=== PATIENT | female | born 1940 | race Caucasian/White ===

== ENCOUNTER → 2016-10-30 | Outpatient (CLI) | payer OTHER ==
[~2016-10-30] MED LIST: ASPCH81 PO; LISI5TAB3 PO; MULT-506 PO
--- NOTE | 2016-10-30 16:37 | MAMMOGRAPHY REPORT ---
BILATERAL DIGITAL SCREENING MAMMOGRAM WITH CAD: 10/30/2016 CLINICAL HISTORY: Routine screening. Patient has no complaints. TECHNIQUE: Current study was also evaluated with a Computer Aided Detection (CAD) system. Bilateral CC and MLO views were obtained. COMPARISON: Comparison is made to exams dated: 10/18/2015 mammogram, 10/16/2014 mammogram, 10/10/2013 cammy mogram, 10/05/2012 mammogram, 10/01/2011 mammogram, and 09/26/2010 mammogram - [facility]. BREAST COMPOSITION: There are scattered areas of fibroglandular density in both breasts. FINDINGS: No suspicious masses, calcifications, or areas of architectural distortion are noted in ei ther breast. There has been no significant interval change compared to prior exams. IMPRESSION: ACR BI-RADS CATEGORY 1: NEGATIVE There is no mammographic evidence of malignancy. A 1 year screening mammogram is recommended. The pa tient will receive written notification of the results. Approximately 10% of breast cancers are not detected with mammography. A negative mammographic report should not delay biopsy if a clinically suggestive mass is present. Martha Chua M.D. /:10/30/2016 16:04:49 Clerk Manager: Sun OREILLY(Dorcas)(Lenin)([place]), [facility] letter sent: Normal 1/2 BI-RADS Code: ACR BI-RADS Category 1: Negative
== END | disposition home or self-care (01) ==
LOC: C.MAMM 15:24
PROVIDERS: ATTEND Internal Medicine
DX: Z12.31 Encounter for screening mammogram for malignant neoplasm of breast (principal)

== ENCOUNTER 2023-10-26 21:15 | Inpatient (IN) ==
--- NOTE | 2023-10-26 21:39 | Emergency Department Note ---
Impression & Plan Acute right flank pain, RAJESH (acute kidney injury), Hydronephrosis, Ureteral stone, Elevated liver enzymes, Acute UTI ED Provider Note NAME: LAN BRIDGES AGE: 83 SEX: F : 1940 ARRIVES VIA: Walk-In INFORMANT: [Patient] ED PROVIDER(S): [Surinder Mann MD] CHIEF COMPLAINT: Back, flank pain HISTORY OF PRESENT ILLNESS: The patient is an 83-year-old female whose had 3 weeks of symptoms that seem to be worsening almost every day. She has noticed some dark urine, she has seen some blood in her urine. She has had some right flank pain at times. She has had some epigastric abdominal pain. Patient has had a decreased appetite but no nausea, no fever. She has had some hot and cold flashes. The patient has had a kidney stone before but it was on the left. The patient spoke with a on-call provider this evening and was referred to the ER. PMHx/PSHx/Social Hx: See Below PHYSICAL EXAM: GENERAL: Patient is in no acute distress. HEENT: No acute trauma, normocephalic atraumatic, mucous membranes moist, no nasal congestion. NECK: No stridor, no adenopathy, no meningismus, trachea is midline. LUNGS: Clear to auscultation bilaterally, no wheeze, no rhonchi, breath sounds equal. HEART: Without murmurs gallops or rubs, regular rate and rhythm. ABDOMEN: Soft, nontender, no peritonitis. EXTREMITIES: No cyanosis, full range of motion of all the joints without pain or difficulty. NEUROLOGIC: Oriented x 3, no acute motor or sensory deficits, no focal weakness. SKIN: No jaundice, no diaphoresis. Back: No flank discomfort to percussion. DIFFERENTIAL DIAGNOSIS: Pyelonephritis, renal colic, biliary colic, pancreatitis, UTI, musculoskeletal pain, among others. EMERGENCY DEPARTMENT PROCEDURES: MEDICAL DECISION MAKING: There is no leukocytosis or concerning anemia. Platelet count slightly low at 121. Sodium was low, there was some acute kidney injury with a creatinine of 2.43. Liver enzymes were elevated. ECG showed a sinus rhythm, no obvious acute ischemia. Cardiac enzyme testing x 1 was slightly elevated. This troponin elevation could be secondary to mismatch or potentially cardiac injury. Lipase slightly elevated at 84-this value is not high enough to diagnose pancreatitis. Urinalysis does show findings of infection. Anaplasmosis and Babesia smears were negative. Lyme disease testing was negative. Chest x-ray did not show pneumonia or free air. Abdominal and pelvis CT shows right-sided hydronephrosis secondary to a proximal right ureteral stone. The patient received IV saline, 1 L. She was given IV ceftriaxone and IV Tylenol. I did speak with urology. The patient does not need emergently stented but will likely have a ureteral stent placed tomorrow. She is to be n.p.o. after midnight. Hydration and antibiotic therapy was recommended overnight. I did speak with the patient about her findings, I spoke with case management. The on-call hospitalist has been consulted. In short, patient appears to be quite dehydrated. She has a UTI with a right sided ureteral stone. There is hydronephrosis. She will require a hospital stay, further workup, urologic intervention. The cause for the elevated liver enzymes and mildly elevated troponin is currently unclear. Prior/Outside records/notes reviewed: None ECG per my interpretation: Indication was abdominal pain. The ECG shows a normal sinus rhythm with a rate of 92. There is no ST elevation, no PVCs. The QTc is 430. Continuous Cardiac Monitoring per my interpretation: An order was placed for continuous cardiac monitoring. The monitor shows a rate of 95 with normal sinus rhythm. Imaging/x-ray results per my interpretation: Chest x-ray shows a hiatal hernia and some atelectasis, there is no free air, pneumonia or pneumothorax. Chronic Medical/Social conditions affecting care: Advanced age. Care/Management discussed with: Urology-Dr. Perkins. Case management and the on-call hospitalist. Level of care consideration(s): After review of the information above and other included data: --I believe the patient requires escalation of care to admission DISPOSITION: Admission Past Med/Surg History Problem List (Updated 10/26/23 @ 23:39 by Surinedr Mann MD) Acute UTI (Acute) Elevated liver enzymes (Acute) Ureteral stone (Acute) Hydronephrosis (Acute) RAJESH (acute kidney injury) (Acute) Acute right flank pain (Acute) Medical History History of kidney stones Social History Smoking Status: Never smoker Preferred Language: Telugu Feels Safe at Home: Yes Allergies Allergies Allergy/AdvReac Type Severity Reaction Status Date / Time No Known Allergies Allergy Unverified 10/26/23 21:46 Home Meds Home Medications Medication Instructions Recorded Confirmed aspirin 81 mg tablet,delayed 81 mg PO DAILY 10/26/23 10/26/23 release atorvastatin 40 mg tablet 40 mg PO DAILY 10/26/23 10/26/23 losartan 25 mg tablet 25 mg PO DAILY 10/26/23 10/26/23 multivitamin 1 tab PO DAILY 10/26/23 10/26/23 Results & Data (ED) Vital Signs Vital Signs - 24 hr 10/26/23 21:19 10/26/23 21:37 10/26/23 23:00 Temperature 36.5 C Temperature Source Temporal Artery Scan Pulse Rate 102 H Pulse Rate [Finger] 95 H 85 Respiratory Rate 16 17 16 Blood Pressure 153/89 H Blood Pressure [Right Radial Artery] 127/75 154/97 H Blood Pressure Mean 110 Blood Pressure Mean [Right Radial Artery] 92 116 Blood Pressure Position Sitting Pulse Oximetry 96 93 94 Oxygen Delivery Method Room Air Room Air Sepsis Recent Fever Within 48 Hours Yes Sepsis New/Unexplained Change in Mental Status No Sepsis Action Taken by Nursing No Action Required Home Medications Current Medication List: was personally reviewed by me Laboratory Data Attestation: I reviewed the patient's lab results. 10/26/23 21:45 10/26/23 21:45 Lab Results 10/26/23 10/26/23 Range/Units 21:45 21:52 WBC 10.39 (4.8-10.8) K/ul RBC 4.11 L (4.20-5.40) M/uL Hgb 12.8 (12.0-16.0) g/dl Hct 36.5 L (37.0-47.0) % MCV 88.8 (80.0-100.0) fL MCH 31.1 (25.0-34.0) pg MCHC 35.1 (32.0-36.0) g/dL RDW Std Deviation 43.1 (36.4-46.3) fL RDW Coeff of Berta 13.2 (11.5-14.5) % Plt Count 121 L (130-400) K/uL MPV 12.2 (9.4-12.4) fL Immature Gran % (Auto) 0.4 % Neut % (Auto) 89.3 % Lymph % (Auto) 3.9 % Elmore % (Auto) 5.6 % Eos % (Auto) 0.5 % Baso % (Auto) 0.3 % Neut # (Auto) 9.28 H (1.40-6.50) K/uL Lymph # (Auto) 0.41 L (1.20-3.40) K/uL Elmore # (Auto) 0.58 (0.11-0.59) K/uL Eos # (Auto) 0.05 (0.00-0.50) K/uL Baso # (Auto) 0.03 (0.00-0.20) K/uL Immature Gran # (Auto) 0.04 (0.01-0.20) K/uL Sodium 130 L (136-145) mmol/L Potassium 3.7 (3.5-5.1) mmol/L Chloride 97 L (98-107) mmol/L Carbon Dioxide 22 (21-32) mmol/L Anion Gap 11 (3-11) BUN 57 H (6-23) mg/dl Creatinine 2.43 H (0.6-1.2) mg/dl Est Cr Clr Drug Dosing 15.6 ml/min Est GFR ( Amer) 20.5 ml/min Est GFR (Non-Af Amer) 17.7 ml/min BUN/Creatinine Ratio 23.5 H (10-20) Glucose 136 H (70-99(Fasting)) mg/dl Calcium 8.8 (8.6-10.3) mg/dl Total Bilirubin 1.3 H (0.2-1.0) mg/dl AST 159 H (13-39) U/L ALT 92 H (7-52) U/L Alkaline Phosphatase 246 H (34-104) U/L Troponin I High Sens 30.5 H (0-14) pg/ml Total Protein 7.0 (6.0-8.3) gm/dl Albumin 3.4 (3.4-5.0) gm/dl Globulin 3.6 (2.5-4.0) gm/dl Albumin/Globulin Ratio 0.9 (0.9-2) Lipase 84 H (11-82) U/L Urine Color Yellow Urine Appearance Turbid A (Clear) Urine pH 5.5 (4.5-7.5) Ur Specific Benkelman 1.009 (1.000-1.030) Urine Protein 2+ H (Negative) Urine Glucose (UA) Negative (Negative) Urine Ketones Negative (Negative) Urine Blood 2+ H (Negative) Urine Nitrite Negative (Negative) Urine Bilirubin Negative (Negative) Urine Urobilinogen Negative (Negative) Ur Leukocyte Esterase 3+ H (Negative) Urine WBC (Auto) >50 H (0-5) /hpf Urine RBC (Auto) 0-2 (0-2) /hpf U Hyaline Cast (Auto) 3-5 H (0-2) /lpf U Epithel Cells (Auto) 0-2 (0-2) /hpf Urine Bacteria (Auto) 2+ H (None Seen) Anaplasma Smear See Comment Babesia Smear See Comment Lyme Disease Screen Negative (Negative) Administered Medications Discontinued Medications Sodium Chloride (Nss) 500 mls @ 999 mls/hr IV .Q31M STA Stop: 10/26/23 22:00 Last Infusion: 10/26/23 22:50 Dose: Infused Documented By: Admin: 10/26/23 22:14 Dose: 999 mls/hr Documented By: JANIA Ceftriaxone Sodium (Rocephin) 2,000 mg in 50 mls @ 100 mls/hr IV NOW STA Stop: 10/26/23 22:56 Last Infusion: 10/26/23 23:29 Dose: Infused Documented By: Admin: 10/26/23 22:52 Dose: 100 mls/hr Documented By: JANIA Sodium Chloride (Nss) 500 mls @ 999 mls/hr IV .Q31M ONE Stop: 10/26/23 23:09 Last Admin: 10/26/23 22:53 Dose: 999 mls/hr Documented By: JANIA Acetaminophen (Ofirmev) 1,000 mg in 100 mls @ 400 mls/hr IV NOW STA Stop: 10/26/23 23:12 Last Admin: 10/26/23 23:28 Dose: 400 mls/hr Documented By: JANIA Imaging Data Radiologist's Impression: Abdomen/Pelvis CT 10/26/23 21:30 Exam(s): CT ABDOMEN + PELVIS Without Contrast EXAM: CT Abdomen and Pelvis Without Intravenous Contrast CLINICAL HISTORY: Reason for exam: flank pain. TECHNIQUE: Axial computed tomography images of the abdomen and pelvis without intravenous contrast. CTDI is 17.53 mGy and DLP is 767.65 mGy-cm. Automated exposure control was utilized for the study. A dose lowering technique was utilized adhering to the principles of ALARA. COMPARISON: No relevant prior studies available. FINDINGS: Lung bases: Unremarkable. No mass. No consolidation. Mediastinum: Small esophageal hiatal hernia. ABDOMEN: Liver: Unremarkable. Gallbladder and bile ducts: Unremarkable. No calcified stones. No ductal dilation. Pancreas: Unremarkable. No ductal dilation. Spleen: Unremarkable. No splenomegaly. Adrenals: Mild bilateral adrenal gland thickening. Kidneys and ureters: Mild right hydronephrosis this is likely secondary to a 0.8 cm calculus within the right renal pelvis. Mild periureteral inflammatory change also noted. Nonobstructing left upper and lower pole intrarenal calculi. Nonobstructing right lower pole intrarenal calculus. Stomach and bowel: Diverticulosis without evidence of diverticulitis. No obstruction. PELVIS: Appendix: No findings to suggest acute appendicitis. Bladder: Unremarkable. No stones. Reproductive: Unremarkable as visualized. ABDOMEN and PELVIS: Intraperitoneal space: Unremarkable. No free air. No significant fluid collection. Bones/joints: Multilevel degenerative changes of the lumbar spine with slight anterolisthesis of L4 on L5. No acute fracture. No dislocation. Soft tissues: Unremarkable. Vasculature: Unremarkable. No abdominal aortic aneurysm. Lymph nodes: Unremarkable. No enlarged lymph nodes. IMPRESSION: 1. Right-sided hydronephrosis secondary to a 0.8 cm calculus within the right renal pelvis. 2. Left-sided nephrolithiasis 3. Diverticulosis without evidence of diverticulitis Electronically signed by: Miguel Cox MD 10/26/23 23:05 PM Discharge Plan Visit Data Chief Complaint: Back Injury/Pain Stated Complaint: BACK PAIN, ABD PAIN, HEADACHE, KIDNEY PROBLEMS ED Provider: Surinder Mann Discharge Problem: Acute right flank pain, RAJESH (acute kidney injury), Hydronephrosis, Ureteral stone, Elevated liver enzymes, Acute UTI Patient Disposition: Admitted As Inpatient Condition: Fair Forms Stand Alone Forms: [facility] Prescriptions Prescriptions: No Action atorvastatin 40 mg tablet 40 mg PO DAILY losartan 25 mg tablet 25 mg PO DAILY aspirin [Aspirin Low-Strength] 81 mg Tablet,Delayed Release (Dr/Ec) 81 mg PO DAILY multivitamin [Multiple Vitamin] Tablet 1 tab PO DAILY Referrals Referrals: Paz Casarez MD [Primary Care Provider] - Discharge Problem: Hydronephrosis Qualifiers: Hydronephrosis type: unspecified Qualified Code(s): N13.30 - Unspecified hydronephrosis
[2023-10-26 22:07] LABS: Basophils # (auto) 0.03 K/uL (0.00-0.20); Basophils % (auto) 0.3 %; Eosinophils # (auto) 0.05 K/uL (0.00-0.50); Eosinophils % (auto) 0.5 %; Hematocrit (blood only) 36.5 % (37.0-47.0); Hemoglobin 12.8 g/dl (12.0-16.0); Immature Granulocytes # (auto) 0.04 K/uL (0.01-0.20); Immature Granulocytes % (auto) 0.4 %; Lymphocytes # (auto) 0.41 K/uL (1.20-3.40); Lymphocytes % (auto) 3.9 %; Mean Corpuscular Hemoglobin 31.1 pg (25.0-34.0); Mean Corpuscular Hgb Conc 35.1 g/dL (32.0-36.0); Mean Corpuscular Volume 88.8 fL (80.0-100.0); Mean Platelet Volume 12.2 fL (9.4-12.4); Monocytes # (auto) 0.58 K/uL (0.11-0.59); Monocytes % (auto) 5.6 %; Neutrophils # (auto) 9.28 K/uL (1.40-6.50); Neutrophils % (auto) 89.3 %; Platelet Count 121 K/uL (130-400); RDW Coefficient of Variation 13.2 % (11.5-14.5); RDW Standard Deviation 43.1 fL (36.4-46.3); Red Blood Count 4.11 M/uL (4.20-5.40); White Blood Count 10.39 K/ul (4.8-10.8)
[2023-10-26] MEDS: SODIUM CHLORIDE 0.9% 500 ML IV STA (22:14)
[2023-10-26 22:21] LABS: Appearance Urine Turbid (Clear); Bacteria Urine Automated 2+ (None Seen); Bilirubin Urine Negative (Negative); Blood Urine 2+ (Negative); Color Urine Yellow; Epithelial Cell Urine Auto 0-2 /hpf (0-2); Glucose Urine UA Negative (Negative); Ketones Urine Negative (Negative); Leukocyte Esterase Urine 3+ (Negative); Nitrite Urine Negative (Negative); Protein Urine 2+ (Negative); RBC Urine Automated 0-2 /hpf (0-2); Specific Gravity Urine 1.009 (1.000-1.030); Urobilinogen Urine Negative (Negative); WBC Urine Automated >50 /hpf (0-5); pH Urine 5.5 (4.5-7.5)
[2023-10-26 22:23] LABS: Albumin Globulin Ratio 0.9 (0.9-2); Albumin Level 3.4 gm/dl (3.4-5.0); BUN Creatinine Ratio 23.5 (10-20); Bilirubin,Total 1.3 mg/dl (0.2-1.0); Calcium 8.8 mg/dl (8.6-10.3); Creatinine Clr Calc Pharmacy 15.6 ml/min; Est GFR (African American) 20.5 ml/min; Est GFR (Non-African American) 17.7 ml/min; Globulin 3.6 gm/dl (2.5-4.0); Potassium 3.7 mmol/L (3.5-5.1)
[2023-10-26 22:30] LABS: Troponin I High Sensitivity 30.5 pg/ml (0-14)
[2023-10-26] MEDS: cefTRIAXone SODIUM 2,000 MG/50 ML BAG IV STA (22:52)
[2023-10-26] MEDS: SODIUM CHLORIDE 0.9% 500 ML IV ONE (22:53)
--- NOTE | 2023-10-26 23:07 | CT Scan Report ---
Exam(s): CT ABDOMEN + PELVIS Without Contrast EXAM: CT Abdomen and Pelvis Without Intravenous Contrast CLINICAL HISTORY: Reason for exam: flank pain. TECHNIQUE: Axial computed tomography images of the abdomen and pelvis without intravenous contrast. CTDI is 17.53 mGy and DLP is 767.65 mGy-cm. Automated exposure control was utilized for the study. A dose lowering technique was utilized adhering to the principles of ALARA. COMPARISON: No relevant prior studies available. FINDINGS: Lung bases: Unremarkable. No mass. No consolidation. Mediastinum: Small esophageal hiatal hernia. ABDOMEN: Liver: Unremarkable. Gallbladder and bile ducts: Unremarkable. No calcified stones. No ductal dilation. Pancreas: Unremarkable. No ductal dilation. Spleen: Unremarkable. No splenomegaly. Adrenals: Mild bilateral adrenal gland thickening. Kidneys and ureters: Mild right hydronephrosis this is likely secondary to a 0.8 cm calculus within the right renal pelvis. Mild periureteral inflammatory change also noted. Nonobstructing left upper and lower pole intrarenal calculi. Nonobstructing right lower pole intrarenal calculus. Stomach and bowel: Diverticulosis without evidence of diverticulitis. No obstruction. PELVIS: Appendix: No findings to suggest acute appendicitis. Bladder: Unremarkable. No stones. Reproductive: Unremarkable as visualized. ABDOMEN and PELVIS: Intraperitoneal space: Unremarkable. No free air. No significant fluid collection. Bones/joints: Multilevel degenerative changes of the lumbar spine with slight anterolisthesis of L4 on L5. No acute fracture. No dislocation. Soft tissues: Unremarkable. Vasculature: Unremarkable. No abdominal aortic aneurysm. Lymph nodes: Unremarkable. No enlarged lymph nodes. IMPRESSION: 1. Right-sided hydronephrosis secondary to a 0.8 cm calculus within the right renal pelvis. 2. Left-sided nephrolithiasis 3. Diverticulosis without evidence of diverticulitis Electronically signed by: Miguel Cox MD 10/26/23 23:05 PM
[2023-10-26] MEDS: ACETAMINOPHEN 1,000 MG/100 ML VIAL IV STA (23:28)
--- NOTE | 2023-10-27 01:15 | History & Physical Report ---
Date of Service October 27, 2023 Assessment & Plan (1) RAJESH (acute kidney injury): Plan: 83-year-old female with past medical history significant for type 2 diabetes, hyperlipidemia, hypertension, osteoporosis, history of herpes zoster presents with right flank pain. Patient states she is having right flank pain on and off for last 2 to 3 weeks. But since last Wednesday got severe and seems persistent which prompted her to come to the ER. Patient also having dark urine. Denies any fevers. Normal bowel movements. No chest pain or shortness of breath. No cough. Had headache earlier improved now.. No dizziness. No runny nose or sore throat. Last couple of days appetite is down. Patient somewhat hard of hearing. Hemodynamics are okay. labs showing RAJESH, elevated LFTs. Urinalysis positive. CT abdomen pelvis showing right-sided hydronephrosis secondary to 0.8 cm calculus within the right renal pelvis. RAJESH presented with creatinine of 2.4 baseline creatinine 0.8 possible from the right renal calculus and UTI will hold losartan IV fluids follow repeat labs in a.m. right renal calculus CT scan showing right-sided hydronephrosis and 0.8 cm calculus of the right renal pelvis urology notified by the ER will keep her n.p.o. pain control IV fluids IV antiemetics as needed UTI on Rocephin will follow cultures elevated LFTs total bili 1.3, AST 115, ALT 92, alkaline phos is 246 CT abdomen pelvis gallbladder and bile ducts unremarkable. Liver unremarkable Lyme screen, anaplasma and Babesia smear negative possible from ongoing infection we will follow repeat labs erythema/flushing of the face will monitor hypertension holding losartan for RAJESH hydralazine prn will monitor diabetes not on meds sliding scale follow HbA1c levels hyperlipidemia will hold statin for now mild elevation of troponin asymptomatic possible from RAJESH ongoing illness will follow serial enzymes DVT prophylaxis SCDs disposition medical floor full code History of Present Illness Chief Complaint: right flank pain Primary Care Provider: Paz Casarez MD 83-year-old female with past medical history significant for type 2 diabetes, hyperlipidemia, hypertension, osteoporosis, history of herpes zoster presents with right flank pain. Patient states she is having right flank pain on and off for last 2 to 3 weeks. But since last Wednesday got severe and seems persistent which prompted her to come to the ER. Patient also having dark urine. Denies any fevers. Normal bowel movements. No chest pain or shortness of breath. No cough. Had headache earlier improved now.. No dizziness. No runny nose or sore throat. Last couple of days appetite is down. Patient somewhat hard of hearing. Hemodynamics are okay. Past med history. As mentioned above past surgical history. Colonoscopy. Exploration of parathyroid glands. Bilateral cataracts. Social history. . No smoking. No alcohol use. No drug use. Family history. Daughter had lung cancer. Father had heart disorder. Allergies Allergy/AdvReac Type Severity Reaction Status Date / Time No Known Allergies Allergy Unverified 10/26/23 21:46 Home Medications Medication Instructions Recorded Confirmed Type aspirin 81 mg tablet,delayed 81 mg PO DAILY 10/26/23 10/26/23 History release atorvastatin 40 mg tablet 40 mg PO DAILY 10/26/23 10/26/23 History losartan 25 mg tablet 25 mg PO DAILY 10/26/23 10/26/23 History multivitamin 1 tab PO DAILY 10/26/23 10/26/23 History Past Med/Surg History Problem List (Updated 10/27/23 @ 02:17 by Trice Levine) Acute UTI (Acute) Elevated liver enzymes (Acute) Ureteral stone (Acute) Hydronephrosis (Acute) RAJESH (acute kidney injury) (Acute) Acute right flank pain (Acute) Medical History History of kidney stones Social History Smoking Status: Never smoker Hx Alcohol Use: No Hx Substance Use: No Preferred Language: Sri Lankan Communication Ability: Effective Materials Manager Required: No Beliefs That Will Affect Care: None Current Living Situation: Spouse Other Information That Helps Us Care for You: No Feels Safe at Home: Yes Safety Concerns: Feels Safe At This Time Assistive Devices: None Review of Systems Review of Systems: All systems reviewed & are unremarkable except as noted in HPI & below Physical Exam Physical Exam: General- Not in distress Head- atraumatic, erythema/flushing seen on he face. Eyes- PERRL. ENT- oropharynx clear Neck- supple, no JVD. Lungs- clear to auscultation , no wheezing or crackles. Heart- regular rhythm; no murmur, no gallop. Abdomen- normal bowel sounds, soft, nontender, no distension. Extremities- no pretibial edema, no erythema seen Neuro- alert, oriented , hard of hearing.; PERRL, no facial palsy; no dysarthria; moves extremities. Results & Data Results & Data Vital Signs (Past 12 Hours) Vital Signs Temp Pulse Pulse Resp BP BP Pulse Ox 10/27/23 00:31 36.5 C 82 16 164/78 H 96 10/26/23 23:00 85 16 154/97 H 94 10/26/23 21:37 95 H 17 127/75 93 10/26/23 21:19 36.5 C 102 H 16 153/89 H 96 O2 Del Method 10/27/23 00:31 Room Air 10/26/23 23:00 Room Air 10/26/23 21:37 10/26/23 21:19 Room Air Diagnostic Findings Laboratory Results WBC 10.39 K/ul (4.8-10.8) 10/26/23 21:45 RBC 4.11 M/uL (4.20-5.40) L 10/26/23 21:45 Hgb 12.8 g/dl (12.0-16.0) 10/26/23 21:45 Hct 36.5 % (37.0-47.0) L 10/26/23 21:45 MCV 88.8 fL (80.0-100.0) 10/26/23 21:45 MCH 31.1 pg (25.0-34.0) 10/26/23 21:45 MCHC 35.1 g/dL (32.0-36.0) 10/26/23 21:45 RDW Std Deviation 43.1 fL (36.4-46.3) 10/26/23 21:45 RDW Coeff of Berta 13.2 % (11.5-14.5) 10/26/23 21:45 Plt Count 121 K/uL (130-400) L 10/26/23 21:45 MPV 12.2 fL (9.4-12.4) 10/26/23 21:45 Immature Gran % (Auto) 0.4 % 10/26/23 21:45 Neut % (Auto) 89.3 % 10/26/23 21:45 Lymph % (Auto) 3.9 % 10/26/23 21:45 Nance % (Auto) 5.6 % 10/26/23 21:45 Eos % (Auto) 0.5 % 10/26/23 21:45 Baso % (Auto) 0.3 % 10/26/23 21:45 Neut # (Auto) 9.28 K/uL (1.40-6.50) H 10/26/23 21:45 Lymph # (Auto) 0.41 K/uL (1.20-3.40) L 10/26/23 21:45 Nance # (Auto) 0.58 K/uL (0.11-0.59) 10/26/23 21:45 Eos # (Auto) 0.05 K/uL (0.00-0.50) 10/26/23 21:45 Baso # (Auto) 0.03 K/uL (0.00-0.20) 10/26/23 21:45 Immature Gran # (Auto) 0.04 K/uL (0.01-0.20) 10/26/23 21:45 Sodium 130 mmol/L (136-145) L 10/26/23 21:45 Potassium 3.7 mmol/L (3.5-5.1) 10/26/23 21:45 Chloride 97 mmol/L (98-107) L 10/26/23 21:45 Carbon Dioxide 22 mmol/L (21-32) 10/26/23 21:45 Anion Gap 11 (3-11) 10/26/23 21:45 BUN 57 mg/dl (6-23) H 10/26/23 21:45 Creatinine 2.43 mg/dl (0.6-1.2) H 10/26/23 21:45 Est Cr Clr Drug Dosing 15.6 ml/min 10/26/23 21:45 Est GFR ( Amer) 20.5 ml/min 10/26/23 21:45 Est GFR (Non-Af Amer) 17.7 ml/min 10/26/23 21:45 BUN/Creatinine Ratio 23.5 (10-20) H 10/26/23 21:45 Glucose 136 mg/dl (70-99(Fasting)) H 10/26/23 21:45 Calcium 8.8 mg/dl (8.6-10.3) 10/26/23 21:45 Total Bilirubin 1.3 mg/dl (0.2-1.0) H 10/26/23 21:45 AST 159 U/L (13-39) H 10/26/23 21:45 ALT 92 U/L (7-52) H 10/26/23 21:45 Alkaline Phosphatase 246 U/L (34-104) H 10/26/23 21:45 Troponin I High Sens 30.5 pg/ml (0-14) H 10/26/23 21:45 Total Protein 7.0 gm/dl (6.0-8.3) 10/26/23 21:45 Albumin 3.4 gm/dl (3.4-5.0) 10/26/23 21:45 Globulin 3.6 gm/dl (2.5-4.0) 10/26/23 21:45 Albumin/Globulin Ratio 0.9 (0.9-2) 10/26/23 21:45 Lipase 84 U/L (11-82) H 10/26/23 21:45 Urine Color Yellow 10/26/23 21:52 Urine Appearance Turbid (Clear) A 10/26/23 21:52 Urine pH 5.5 (4.5-7.5) 10/26/23 21:52 Ur Specific Page 1.009 (1.000-1.030) 10/26/23 21:52 Urine Protein 2+ (Negative) H 10/26/23 21:52 Urine Glucose (UA) Negative (Negative) 10/26/23 21:52 Urine Ketones Negative (Negative) 10/26/23 21:52 Urine Blood 2+ (Negative) H 10/26/23 21:52 Urine Nitrite Negative (Negative) 10/26/23 21:52 Urine Bilirubin Negative (Negative) 10/26/23 21:52 Urine Urobilinogen Negative (Negative) 10/26/23 21:52 Ur Leukocyte Esterase 3+ (Negative) H 10/26/23 21:52 Urine WBC (Auto) >50 /hpf (0-5) H 10/26/23 21:52 Urine RBC (Auto) 0-2 /hpf (0-2) 10/26/23 21:52 U Hyaline Cast (Auto) 3-5 /lpf (0-2) H 10/26/23 21:52 U Epithel Cells (Auto) 0-2 /hpf (0-2) 10/26/23 21:52 Urine Bacteria (Auto) 2+ (None Seen) H 10/26/23 21:52 Anaplasma Smear See Comment 10/26/23 21:45 Babesia Smear See Comment 10/26/23 21:45 Lyme Disease Screen Negative (Negative) 10/26/23 21:45 Impressions Abdomen/Pelvis CT 10/26/23 21:30 Exam(s): CT ABDOMEN + PELVIS Without Contrast EXAM: CT Abdomen and Pelvis Without Intravenous Contrast CLINICAL HISTORY: Reason for exam: flank pain. TECHNIQUE: Axial computed tomography images of the abdomen and pelvis without intravenous contrast. CTDI is 17.53 mGy and DLP is 767.65 mGy-cm. Automated exposure control was utilized for the study. A dose lowering technique was utilized adhering to the principles of ALARA. COMPARISON: No relevant prior studies available. FINDINGS: Lung bases: Unremarkable. No mass. No consolidation. Mediastinum: Small esophageal hiatal hernia. ABDOMEN: Liver: Unremarkable. Gallbladder and bile ducts: Unremarkable. No calcified stones. No ductal dilation. Pancreas: Unremarkable. No ductal dilation. Spleen: Unremarkable. No splenomegaly. Adrenals: Mild bilateral adrenal gland thickening. Kidneys and ureters: Mild right hydronephrosis this is likely secondary to a 0.8 cm calculus within the right renal pelvis. Mild periureteral inflammatory change also noted. Nonobstructing left upper and lower pole intrarenal calculi. Nonobstructing right lower pole intrarenal calculus. Stomach and bowel: Diverticulosis without evidence of diverticulitis. No obstruction. PELVIS: Appendix: No findings to suggest acute appendicitis. Bladder: Unremarkable. No stones. Reproductive: Unremarkable as visualized. ABDOMEN and PELVIS: Intraperitoneal space: Unremarkable. No free air. No significant fluid collection. Bones/joints: Multilevel degenerative changes of the lumbar spine with slight anterolisthesis of L4 on L5. No acute fracture. No dislocation. Soft tissues: Unremarkable. Vasculature: Unremarkable. No abdominal aortic aneurysm. Lymph nodes: Unremarkable. No enlarged lymph nodes. IMPRESSION: 1. Right-sided hydronephrosis secondary to a 0.8 cm calculus within the right renal pelvis. 2. Left-sided nephrolithiasis 3. Diverticulosis without evidence of diverticulitis Electronically signed by: Miguel Cox MD 10/26/23 23:05 PM ECG Additional Comments: ECG. Normal sinus rhythm rate of 92. No acute ST changes seen Code Status & VTE Plan VTE Prophylaxis Plan VTE Prophylaxis will be ordered: Yes
[2023-10-27] MEDS ORDERED: GLUCOSE 40% GEL 15 GM TUBE PO PRN (02:18)
[2023-10-27] MEDS ORDERED: GLUCAGON FOR INJ 1 MG VIAL SQ PRN (02:18)
[2023-10-27] MEDS ORDERED: DEXTROSE 50% 50 ML SYRINGE IV PRN (02:18)
[2023-10-27] MEDS ORDERED: HYDROmorphone INJ 0.5 MG/0.5 ML SYR IV PRN ×2 (02:18)
[2023-10-27] MEDS ORDERED: CARBOHYDRATES FOR HYPOGLYCEMIA PO PRN (02:18)
[2023-10-27] MEDS ORDERED: hydrALAZINE HCL 20 MG/ML VIAL IV PRN (02:18)
[2023-10-27] MEDS ORDERED: ONDANSETRON INJ 2 MG/ML 2 ML VIAL IV PRN (02:18)
[2023-10-27] MEDS ORDERED: GLUCOSE 10 TAB/TUBE PO PRN (02:18)
[2023-10-27] MEDS: SODIUM CHLORIDE 0.9% 1,000 ML IV SCH (02:42)
[2023-10-27] MEDS: INSULIN ASPART PER UNIT CHARGE SC SCH ×2 (05:41→21:57)
--- NOTE | 2023-10-27 06:45 | XRay Report ---
XR chest 1V portable HISTORY: 83 years-old Female abd pain acute chest and abdominal pain COMPARISON: CT abdomen and pelvis of same day TECHNIQUE: AP view of the chest FINDINGS: Cardiac silhouette is upper limits of normal in size. Mild linear subsegmental bibasilar atelectasis versus scarring. [id number] hiatal hernia. No pneumothorax, pleural effusion, airspace consoli dation or pulmonary edema. The bones appear grossly intact. IMPRESSION: 1. No acute process of the chest. 2. Hiatal hernia. ACT 112: Negative or not required by law. The above report was generated using voice recognition software. It may contain grammatical, syntax o r spelling errors. Electronically signed by: Naresh Henderson M.D. 10/27/2023 6:42 AM
[2023-10-27 07:17] LABS: Basophils # (auto) 0.03 K/uL (0.00-0.20); Basophils % (auto) 0.3 %; Eosinophils # (auto) 0.21 K/uL (0.00-0.50); Hematocrit (blood only) 32.3 % (37.0-47.0); Immature Granulocytes # (auto) 0.05 K/uL (0.01-0.20); Immature Granulocytes % (auto) 0.5 %; Lymphocytes # (auto) 0.29 K/uL (1.20-3.40); Lymphocytes % (auto) 2.7 %; Mean Corpuscular Hemoglobin 30.6 pg (25.0-34.0); Mean Corpuscular Hgb Conc 34.1 g/dL (32.0-36.0); Mean Corpuscular Volume 89.7 fL (80.0-100.0); Mean Platelet Volume 11.7 fL (9.4-12.4); Monocytes # (auto) 0.68 K/uL (0.11-0.59); Monocytes % (auto) 6.4 %; Neutrophils # (auto) 9.37 K/uL (1.40-6.50); Neutrophils % (auto) 88.1 %; Platelet Count 104 K/uL (130-400); RDW Coefficient of Variation 13.3 % (11.5-14.5); RDW Standard Deviation 44.5 fL (36.4-46.3); White Blood Count 10.63 K/ul (4.8-10.8)
[2023-10-27 07:30] LABS: Albumin Level 2.7 gm/dl (3.4-5.0); BUN Creatinine Ratio 24.4 (10-20); Bilirubin Direct 0.4 mg/dl (0-0.2); Bilirubin,Total 0.8 mg/dl (0.2-1.0); Calcium 7.9 mg/dl (8.6-10.3); Creatinine Clr Calc Pharmacy 16.3 ml/min; Est GFR (African American) 21.4 ml/min; Est GFR (Non-African American) 18.5 ml/min; Potassium 3.4 mmol/L (3.5-5.1); Total Protein 5.7 gm/dl (6.0-8.3)
[2023-10-27 07:36] LABS: Troponin I High Sensitivity 24.3 pg/ml (0-14)
[2023-10-27 08:42] LABS: Estimated Average Glucose 151 mg/dl; Hemoglobin A1C 6.9 % (4.5-5.6)
[2023-10-27] MEDS: MULTIVITAMIN TAB PO SCH (08:48)
[2023-10-27] MEDS: POTASSIUM CHLORIDE CRTAB 20 MEQ TABCR PO ONE (08:48)
[2023-10-27] MEDS: ASPIRIN 81 MG ECTAB PO SCH (08:48)
--- NOTE | 2023-10-27 09:23 | Urology Consultation ---
<Statement entered by Juan Carlos Chaney MD - 10/27/23 15:39> I have discussed Ms. Buckley's case with TONY Bonilla and agree with the above documentation. Clinical picture concerning for right-sided obstructing stone with associated UTI. Will plan on cystoscopy, right retrograde pyelogram and right ureteral stent placed to allow maximal drainage of her right kidney. -Juan Carlos Chaney MD. Date of Consultation October 27, 2023 Assessment & Plan (1) Acute UTI: (2) RAJESH (acute kidney injury): (3) Ureteral stone: (4) Hydronephrosis: Plan 83yo/F admitted with an obstructing right renal pelvis stone, RAJESH, and suspected UTI. We reviewed her CT findings, specifically the 8mm right renal pelvis stone with right-sided hydronephrosis. Discussed acute stone management. We discussed that given the RAJESH and concern of infection in the setting of an obstructing stone, our recommendation would be for ureteral stent placement. Ureteral stents were discussed as well as postoperative issues and pain management. She is aware a second procedure will be needed for stone treatment after the infection has resolved. Risks and benefits were discussed. All questions were answered. She is agreeable to proceeding. Plan to proceed to the OR today for cystoscopy, right retrograde pyelogram, right ureteral stent placement with Dr. Chaney. Risks and benefits to be reviewed with patient by Dr. Chaney. OR notified. Keep NPO. Continue supportive care and pain management. Covered with scheduled IV ceftriaxone. Urology to follow. History of Present Illness Attending Physician: Joey Orozco MD History of Present Illness 83-year-old female with past medical history significant for type 2 diabetes, hyperlipidemia, hypertension, osteoporosis, history of herpes zoster who presented to the ED with severe right flank pain. On arrival, she was afebrile and hemodynamically stable. Labs showing no leukocytosis and RAJESH of 2.43. Urinalysis 2+ blood, 3+LE, negative nitrite, 2+ bacteria. CT abdomen pelvis notable for an obstructing 8mm right renal pelvis stone. Urine culture pending. Pt started on IV Ceftriaxone and admitted to medicine service. CT abd pelvis - 1. Right-sided hydronephrosis secondary to a 0.8 cm calculus within the right renal pelvis. 2. Left-sided nephrolithiasis 3. Diverticulosis without evidence of diverticulitis Pt seen at bedside today. Awake, resting in bed on arrival. No acute distress. at bedside. Has been NPO. Pain is currently well-controlled. Denies f/c/n/v. Denies hematuria or dysuria. Hx of spontaneous stone passage. She does not follow with a urologist. No hx procedures. Allergies Allergy/AdvReac Type Severity Reaction Status Date / Time No Known Allergies Allergy Unverified 10/26/23 21:46 Home Medications Medication Instructions Recorded Confirmed Type aspirin 81 mg tablet,delayed 81 mg PO DAILY 10/26/23 10/26/23 History release atorvastatin 40 mg tablet 40 mg PO DAILY 10/26/23 10/26/23 History losartan 25 mg tablet 25 mg PO DAILY 10/26/23 10/26/23 History multivitamin 1 tab PO DAILY 10/26/23 10/26/23 History Patient History Medical History (Updated 10/27/23 @ 14:30 by Sanjeev Saleh MD) Acute renal insufficiency Hypertension Diabetes mellitus Elevated liver enzymes Hydronephrosis History of kidney stones Surgical History (Updated 10/27/23 @ 14:30 by Sanjeev Saleh MD) Hx of colonoscopy History of parathyroid surgery Hx of cataract surgery Social History Smoking Status: Never smoker Hx Alcohol Use: No Hx Substance Use: No Preferred Language: Azerbaijani Communication Ability: Effective Explosive Ordnance Specialist Required: No Beliefs That Will Affect Care: None Current Living Situation: Spouse Other Information That Helps Us Care for You: No Feels Safe at Home: Yes Safety Concerns: Feels Safe At This Time Assistive Devices: None Review of Systems Review of Systems: All systems reviewed & are unremarkable except as noted in HPI & below Physical Exam Constitutional: well developed and well nourished; no acute distress Neck: normal visual inspection Respiratory: normal respiratory effort; no respiratory distress and no labored breathing Musculoskeletal: Head/Neck/Chest: normocephalic Skin: No visible rashes or lesions to exposed skin areas Neurologic: moves all extremities and awake Psychiatric: A+Ox3, euthymic affect Results & Data Vital Signs (Past 12 Hours) Vital Signs Temp Pulse Pulse Resp BP BP BP 10/27/23 08:35 72 10/27/23 07:56 36.4 C L 72 18 115/68 10/27/23 04:01 68 10/27/23 02:18 36.4 C L 79 18 153/78 H 10/27/23 01:00 74 15 133/76 10/27/23 00:31 36.5 C 82 16 164/78 H 10/26/23 23:00 85 16 154/97 H 10/26/23 21:37 95 H 17 127/75 10/26/23 21:19 36.5 C 102 H 16 153/89 H Pulse Ox O2 Del Method 10/27/23 08:35 10/27/23 07:56 96 Room Air 10/27/23 04:01 10/27/23 02:18 97 Room Air 10/27/23 01:00 95 Room Air 10/27/23 00:31 96 Room Air 10/26/23 23:00 94 Room Air 10/26/23 21:37 93 10/26/23 21:19 96 Room Air PG Care Time/CCT Total # of Minutes Spent Total Time Spent with Patient: Total time spent is greater than 50% in coordination of care (as documented) at patient's floor/unit and/or counseling patient: Coding Level of Care Code 41251 INT INP/OBS CARE 2/55MIN Diagnoses Acute UTI N39.0 RAJESH (acute kidney injury) N17.9 Ureteral stone N20.1 Hydronephrosis N13.30 Hydronephrosis type: unspecified (4) Hydronephrosis Hydronephrosis type: unspecified Qualified Code(s): N13.30 - Unspecified hydronephrosis
--- NOTE | 2023-10-27 09:51 | Electrocardiogram Report ---
Test Reason : Blood Pressure : / mmHG Vent. Rate : 092 BPM Atrial Rate : 092 BPM P-R Int : 134 ms QRS Dur : 076 ms QT Int : 348 ms P-R-T Axes : 080 083 031 degrees QTc Int : 430 ms Normal sinus rhythm Normal ECG No previous ECGs available Confirmed by Ramirez Starr ([id number]) on 10/27/2023 9:51:54 AM Referred By: REFERRED SELF Confirmed By:Omari Starr
--- NOTE | 2023-10-27 14:26 | Anesthesiology Consultation ---
Date of Service October 27, 2023 Assessment & Plan (1) Encounter for pre-operative examination: Chart Review Chart Review: Acceptable Risk for Surgery History Surgery Operation Date: 10/27/23 11:25 Proposed Procedures p Cystoscopy, Right Retrograde Pyelogram and Stent Placement - Juan Carlos Chaney MD Height/Weight Height: 5 ft 3 in Weight: 65.4 kg Allergies Allergy/AdvReac Type Severity Reaction Status Date / Time No Known Allergies Allergy Unverified 10/26/23 21:46 Medications Home Medications Medication Instructions Recorded Confirmed Last Taken aspirin 81 mg tablet,delayed 81 mg PO DAILY 10/26/23 10/26/23 Unknown release atorvastatin 40 mg tablet 40 mg PO DAILY 10/26/23 10/26/23 Unknown losartan 25 mg tablet 25 mg PO DAILY 10/26/23 10/26/23 Unknown multivitamin 1 tab PO DAILY 10/26/23 10/26/23 Unknown Active Medications Generic Name Dose Route Start Last Admin Trade Name Freq PRN Reason Stop Dose Admin Aspirin 81 mg 10/27/23 09:00 10/27/23 08:48 Aspirin 81 Mg Ectab PO 11/26/23 08:59 81 mg DAILY NAVJOT Administration Sodium Chloride 1,000 mls @ 100 mls/hr 10/27/23 02:18 10/27/23 12:43 Nss IV 11/26/23 02:17 100 mls/hr .Q10H NAVJOT Administration Insulin Aspart 0 units 10/27/23 06:00 10/27/23 12:24 Insulin Aspart Per Unit Charge SC 11/26/23 05:59 Not Given Q6H NAVJOT Multivitamins 1 tab 10/27/23 09:00 10/27/23 08:48 Multivitamin Tab PO 11/26/23 08:59 1 tab DAILY NAVJOT Administration Past Medical History Medical History (Updated 10/27/23 @ 14:30 by Sanjeev Saleh MD) Acute renal insufficiency Hypertension Diabetes mellitus Elevated liver enzymes Hydronephrosis History of kidney stones Past Surgical History Surgical History (Updated 10/27/23 @ 14:30 by Sanjeev Saleh MD) Hx of colonoscopy History of parathyroid surgery Hx of cataract surgery Social History Smoking Status: Never smoker Hx Alcohol Use: No Hx Substance Use: No Physical Exam Vital Signs Last Vital Signs Temp 36.4 C L 10/27/23 11:54 Pulse 74 10/27/23 11:54 Resp 18 10/27/23 11:54 BP 133/75 10/27/23 11:54 Pulse Ox 96 10/27/23 11:54 O2 Del Method Room Air 10/27/23 11:54 Testing Laboratory Results 10/27/23 06:58 10/27/23 06:58 Hemoglobin A1c 6.9 % (4.5-5.6) H 10/27/23 06:58 Urine Color Yellow 10/26/23 21:52 Urine Appearance Turbid (Clear) A 10/26/23 21:52 Urine pH 5.5 (4.5-7.5) 10/26/23 21:52 Ur Specific [place] 1.009 (1.000-1.030) 10/26/23 21:52 Urine Protein 2+ (Negative) H 10/26/23 21:52 Urine Glucose (UA) Negative (Negative) 10/26/23 21:52 Urine Ketones Negative (Negative) 10/26/23 21:52 Urine Nitrite Negative (Negative) 10/26/23 21:52 Ur Leukocyte Esterase 3+ (Negative) H 10/26/23 21:52 Urine WBC (Auto) >50 /hpf (0-5) H 10/26/23 21:52 Urine RBC (Auto) 0-2 /hpf (0-2) 10/26/23 21:52 U Hyaline Cast (Auto) 3-5 /lpf (0-2) H 10/26/23 21:52 U Epithel Cells (Auto) 0-2 /hpf (0-2) 10/26/23 21:52 Urine Bacteria (Auto) 2+ (None Seen) H 10/26/23 21:52 10/27/23 10/27/23 12:18 05:38 POC Glucose 104 H 134 H
[2023-10-27] MEDS ORDERED: DEXAMETHASONE SOD INJ 4 MG/ML VIAL ONE (15:03)
[2023-10-27] MEDS ORDERED: ONDANSETRON INJ 2 MG/ML 2 ML VIAL ONE (15:03)
[2023-10-27] MEDS ORDERED: LIDOCAINE 2% 2 ML VIAL/AMP(20MG/ML) INFIL ONE (15:03)
[2023-10-27] MEDS ORDERED: PROPOFOL IV EMULSION 10 MG/ML 20 ML VIAL IV ONE ×2 (15:03→15:05)
[2023-10-27] MEDS ORDERED: fentaNYL citrate PF 100 MCG/2 ML VIAL ONE (15:04)
[2023-10-27] MEDS ORDERED: fentaNYL citrate PF 100 MCG/2 ML VIAL IV PRN (15:57)
[2023-10-27] MEDS ORDERED: ePHEDrine sulfate 50 MG/ML AMP IV PRN (15:57)
[2023-10-27] MEDS ORDERED: ATROPINE SULFATE 0.1 MG/ML 10ML SYR IV PRN (15:57)
[2023-10-27] MEDS: ceFAZolin 2000MG 2,000 MG/15 ML SYR IV ONE (16:07)
[2023-10-27] MEDS: DIATRIZOATE MEGLUMINE 30% 100ML VIAL INSTIL ONE (16:27)
--- NOTE | 2023-10-27 16:33 | Operative Report ---
PG Post Operative Report Pre & Post Diagnosis Operation Date: 10/27/23 11:25 Pre-Op Diagnosis: (1) Acute UTI: (2) RAJESH (acute kidney injury): (3) Ureteral stone: (4) Hydronephrosis: Post-Op Diagnosis: (1) Acute UTI: (2) RAJESH (acute kidney injury): (3) Ureteral stone: (4) Hydronephrosis: I identified the patient and participated in the time-out.: Yes Procedure Operation Date: 10/27/23 11:25 Actual Procedures p Cystoscopy, Right Retrograde Pyelogram and Right Ureteral Stent Placement(R ight) - Juan Carlos Chaney MD Surgeon Juan Carlos Chaney MD [employer] none Estimated Blood Loss 0 Findings Consistent with Post-Op Diagnosis Specimens None Drains 6 Citizen [place] by 24 cm double-J ureteral stent in the right ureter Anesthesia Type MAC Complications none Disposition Accompanied Patient To Recovery: Yes Disposition: Recovery Room Indications This is an 83-year-old female recently found on imaging to have a right renal pelvis stone and possible hydronephrosis. Urinalysis was concerning for infection. She was brought to the OR for right ureteral stent placement to allow maximal drainage of the kidney Description of Procedure The patient was identified in the holding area and informed consent was confirmed. She was marked on the right side, then was taken to the operating room where anesthesia was initiated. She was placed in the dorsal lithotomy position with all pressure points appropriately padded. She was prepped and draped in the usual sterile fashion and a preoperative timeout was performed. A well-lubricated cystoscope was inserted per urethra and panendoscopy was performed. The urethra was normal in appearance. The bladder was of normal size with ureteral orifices in orthotopic position. The right ureteral orifice was identified and cannulated with a 5 Citizen [place] open- ended catheter. A retrograde pyelogram was performed demonstrating the ureter was normal in course and caliber. There was mild hydronephrosis. There was a filling defect in the renal pelvis, consistent with her stone. A 0.038" ZIPwire was advanced to the level of the kidney under fluoroscopic guidance. Over the wire, a 6 Citizen [place] x 24 centimeter double-J ureteral stent was advanced. When the wire was removed, the proximal curl was visualized in the kidney with x-ray, and the distal curl visualized in the bladder with the cystoscope. At this point the bladder was drained and all instrumentation was removed. The patient was then awakened from anesthesia and was brought to the PACU in stable condition. I attest to the content of the Intraoperative Record and any orders documented therein. Any exceptions are noted below.
--- NOTE | 2023-10-27 17:08 | Fluoroscopy Report ---
FL retrograde includes kub CLINICAL HISTORY: RIGHT STENT COMPARISON STUDY: CT of the abdomen and pelvis October 26, 2023. FLUOROSCOPY TIME: 3 seconds. Ka, r: 0.58 mGy FLUOROSCOPIC IMAGES: 2 FINDINGS: Fluoroscopy was provided during right retrograde pyelogram with right ureteral stent placem ent. Filling defect within the right renal pelvis is likely due to the calculus shown on CT of October 152023. IMPRESSION: Fluoroscopy provided during right retrograde pyelogram with right ureteral stent placeme nt. ACT 112: Negative or not required by law. Electronically signed by: Jonny Wheeler M.D. 10/27/2023 5:07 PM
[2023-10-27] MEDS: ceFAZolin 2,000 MG/15 ML IV PUSH IV ONE (17:31)
--- NOTE | 2023-10-27 17:37 | Anesthesiology Progress Note ---
Date of Service October 27, 2023 Anesthesia Post Procedure Vital Signs Vital Signs: Temp Pulse Pulse Pulse Resp BP BP 10/27/23 17:00 82 16 10/27/23 16:50 36.6 C 83 16 10/27/23 16:40 86 17 10/27/23 16:34 36.5 C 85 18 10/27/23 15:36 36.9 C 90 18 10/27/23 15:07 82 10/27/23 11:54 36.4 C L 74 18 10/27/23 08:45 10/27/23 08:35 72 10/27/23 07:56 36.4 C L 72 18 115/68 10/27/23 04:01 68 10/27/23 02:18 36.4 C L 79 18 10/27/23 01:00 74 15 10/27/23 00:31 36.5 C 82 16 10/26/23 23:00 85 16 10/26/23 21:37 95 H 17 10/26/23 21:19 36.5 C 102 H 16 153/89 H BP BP Pulse Ox O2 Del Method 10/27/23 17:00 126/64 94 Room Air 10/27/23 16:50 114/65 95 Room Air 10/27/23 16:40 105/61 94 Room Air 10/27/23 16:34 99/57 L 94 Room Air 10/27/23 15:36 168/81 H 98 Room Air 10/27/23 15:07 10/27/23 11:54 133/75 96 Room Air 10/27/23 08:45 Room Air 10/27/23 08:35 10/27/23 07:56 96 Room Air 10/27/23 04:01 10/27/23 02:18 153/78 H 97 Room Air 10/27/23 01:00 133/76 95 Room Air 10/27/23 00:31 164/78 H 96 Room Air 10/26/23 23:00 154/97 H 94 Room Air 10/26/23 21:37 127/75 93 10/26/23 21:19 96 Room Air Pain Intensity Right Back: Pain Intensity: 6 Head: Pain Intensity: 2 Transfer of Care Handoff Completed per policy Notes Mental Status: alert / awake / arousable Patient Amnestic to Procedure: Yes Nausea / Vomiting: adequately controlled Pain: adequately controlled Airway Patency, RR, SpO2: stable & adequate BP & HR: stable & adequate Hydration State: stable & adequate Anesthetic Complications: no major complications apparent and Pt Satisfied with anesthetic care
--- NOTE | 2023-10-27 20:02 | Hospitalist Progress Note ---
Date of Service October 27, 2023 Assessment & Plan (1) RAJESH (acute kidney injury): Plan: 83-year-old female with past medical history significant for type 2 diabetes, hyperlipidemia, hypertension, osteoporosis, history of herpes zoster presents with right flank pain. Patient states she is having right flank pain on and off for last 2 to 3 weeks. But since last Wednesday got severe and seems persistent which prompted her to come to the ER. Patient also having dark urine. Denies any fevers. Normal bowel movements. No chest pain or shortness of breath. No cough. Had headache earlier improved now.. No dizziness. No runny nose or sore throat. Last couple of days appetite is down. Patient somewhat hard of hearing. Hemodynamics are okay. labs showing RAJESH, elevated LFTs. Urinalysis positive. CT abdomen pelvis showing right-sided hydronephrosis secondary to 0.8 cm calculus within the right renal pelvis. RAJESH Likely secondary to obstructive uropathy Cr 2.4 on presentation Baseline creatinine 0.8 Hold losartan Avoid nephrotoxic agents as able Continue IV fluids Monitor renal function Right renal calculus Obstructive uropathy -CT scan showing right-sided hydronephrosis and 0.8 cm calculus of the right renal pelvis --S/P cystoscopy, right retrograde pyelogram and right ureteral stent placement by Dr. Chaney on 10/27/2023 Pain control Appreciate urology input Needs follow-up with urology on discharge UTI Urine culture pending Empirically on IV Rocephin Elevated LFTs Total bili 1.3, AST 115, ALT 92, alkaline phos is 246 CT abdomen pelvis gallbladder and bile ducts unremarkable. Liver unremarkable Lyme screen, anaplasma and Babesia smear negative Possible from ongoing infection Monitor LFTs Hypertension hold losartan due to RAJESH hydralazine prn monitor DM II Diet controlled HbA1c 6.9 Continue insulin while hospitalized Monitor BGs Hyperlipidemia hold statin Mild elevation of troponin Asymptomatic Likely due to renal insufficiency Patient denies chest pain DVT prophylaxis SCDs Code Status Full code Admission and Anticipated Discharge Date Admission Date: October 27, 2023 Subjective Patient is seen and examined at bedside Right flank pain much improved Denies any nausea, vomiting, chest pain, dyspnea, hematuria, dysuria Had ureteral stent placement today Review of Systems Review of Systems: All systems reviewed & are unremarkable except as noted in Subjective Physical Exam Physical Exam: Physical Exam: Vitals signs as noted above General Appearance:Moderately built and nourished, no apparent distress Head: normocephalic, Atraumatic Eyes: normal inspection, EOMI Neck: supple, Trachea midline Respiratory/Chest: Normal breath sounds, CTA, No accessory muscle use Cardiovascular: S1, S2, No murmur Abdomen/GI:Soft, Non tender, Bowel sounds present Extremities/Musculoskeletal:normal inspection, no edema Neurologic/Psych:AAOX3, grossly no focal neurological deficits Skin: normal color, warm Results & Data Results & Data Vital Signs (Past 12 Hours) Vital Signs Temp Pulse Pulse Pulse Resp BP Pulse Ox 10/27/23 18:47 36.5 C 77 16 137/72 95 10/27/23 18:17 36.0 C L 82 18 138/84 93 10/27/23 17:35 36.3 C L 80 16 127/66 94 10/27/23 17:00 82 16 126/64 94 10/27/23 16:50 36.6 C 83 16 114/65 95 10/27/23 16:40 86 17 105/61 94 10/27/23 16:34 36.5 C 85 18 99/57 L 94 10/27/23 15:36 36.9 C 90 18 168/81 H 98 10/27/23 15:07 82 10/27/23 11:54 36.4 C L 74 18 133/75 96 10/27/23 08:45 10/27/23 08:35 72 O2 Del Method 10/27/23 18:47 Room Air 10/27/23 18:17 Room Air 10/27/23 17:35 Room Air 10/27/23 17:00 Room Air 10/27/23 16:50 Room Air 10/27/23 16:40 Room Air 10/27/23 16:34 Room Air 10/27/23 15:36 Room Air 10/27/23 15:07 10/27/23 11:54 Room Air 10/27/23 08:45 Room Air 10/27/23 08:35 Laboratory Results Short CBC 10/26/23 10/27/23 Range/Units 21:45 06:58 WBC 10.39 10.63 (4.8-10.8) K/ul Hgb 12.8 11.0 L (12.0-16.0) g/dl Hct 36.5 L 32.3 L (37.0-47.0) % Plt Count 121 L 104 L (130-400) K/uL BMP 10/26/23 10/27/23 21:45 06:58 Sodium 130 L 134 L Potassium 3.7 3.4 L Chloride 97 L 104 Carbon Dioxide 22 22 BUN 57 H 57 H Creatinine 2.43 H 2.34 H Glucose 136 H 133 H Calcium 8.8 7.9 L Liver Function 10/26/23 10/27/23 Range/Units 21:45 06:58 Total Bilirubin 1.3 H 0.8 D (0.2-1.0) mg/dl Direct Bilirubin 0.4 H (0-0.2) mg/dl AST 159 H 86 H (13-39) U/L ALT 92 H 65 H (7-52) U/L Alkaline Phosphatase 246 H 189 H (34-104) U/L Albumin 3.4 2.7 L (3.4-5.0) gm/dl Urine 10/26/23 Range/Units 21:52 Urine Color Yellow Urine Appearance Turbid A (Clear) Urine pH 5.5 (4.5-7.5) Ur Specific [place] 1.009 (1.000-1.030) Urine Protein 2+ H (Negative) Urine Glucose (UA) Negative (Negative)
[2023-10-27] MEDS: cefTRIAXone SODIUM 2,000 MG/50 ML BAG IV SCH (21:22)
[2023-10-27] MEDS ORDERED: Nursing to Pharmacy Communication SCH (21:30)
[2023-10-27] MEDS: COUGH DROP (SUGAR FREE) LOZ 24 LOZ/1 BOX BUCCAL PRN (22:40)
--- OUTSIDE RECORDS SUMMARY | 2023-10-28 00:47 | External Medical Summary | Summary of Care ---
Author Name Unknown Organization [facility] Address [address] [facility] [place] [address] Phone [phone] Care Team Providers Care Associate Web Developer Name Role Phone Paz Casarez MD Primary Care Provider [phone] Encounter Details Date Type Department Care Team (Late st Contact Info) Description 08/13/2023 Orders Only PATIENT PORTAL DO NOT DELETE THIS DEPT USED BY [place] [id number] Allergies Active Allergy Reactions Criticality Noted Date Comments Apap-Calcium Carbonate Hives 05/23/2018 Lisinopril Cough 06/18/2014 documented as of this encounter (statuses as of 08/13/2023) Medications Medication Sig Dispensed Refills Start Date End Date Status WOMENS MULTIVITAMIN PLUS PO TABS 1 daily 0 Active VITAMIN D 1000 UNITS PO CAPSIndications:Vitami n D deficiency 2 capsule daily 30 Cap 11 08/15/2012 Active Losartan Potassium 25 MG Oral Tablet (Cozaar)Indications:HT N, goal below 140/90 Take 1 Tablet by mouth in the morning. 90 Tablet 3 08/12/2022 Active Atorvastatin Calcium 40 MG Oral Tablet (Lipitor)Indications:H yperlipidemia with target LDL less than 100 Take 1 Tablet by mouth in the morning. 90 Tablet 3 08/12/2022 Active documented as of this encounter (statuses as of 08/13/2023) Active Problems Problem Noted Date Diagnosed Date Vaccine refused by patient 03/18/2021 HTN, goal below 140/90 08/17/2013 Hyperlipidemia with target LDL less than 100 Overview: ICD-10 update of inactive term DM type 2, goal HbA1c < 7.5% 02/12/2012 Overview: ICD-10 update of inactive term History of herpes zoster 08/06/2008 Age-related osteoporosis wit hout current pathological fracture Overview: doesn't like to take meds documented as of this encounter (statuses as of 08/13/2023) Resolved Problems Problem Noted Date Diagnosed Date Resolved Date Cataract of both eyes 09/16/20182020 No diabetic retinopathy in both eyes 07/22/2018 08/15/2020 Dyslipidemia, goal LDL below 160 08/06/2008 05/01/2009 Overview: Per Lipid Taxonomy. documented as of this encounter (statuses as of 08/13/2023) Immunizations Name Administration Dates Next Due [id number] (Pentacil), Peds 08/07/2007 Pneumococcal Conjugate Vacc, 13 Valent (Prevnar) 01/03/2018 Pneumococcal Polysaccharide PPV23 (Pneumovax) Seasonal Influenza, PF, 6 M & above, IM , (FluLaval or Fluzone) 06/06/2018 Seasonal Influenza, Quadrivalent, No Preserve, I M 03/13/2015 Seasonal Influenza, Split, IIV3, With Preserve, Inj 01/29/2014,03/03/2013 Seasonal Influenza, Trivalent, Adjuvanted, 65+ y rs 03/21/2019 TD - Tetanus/Diptheria (ADULT) 08/07/2007 TDAP (age 10 and older)(Boostrix) 01/03/2018 Varicella Zoster Vaccine (Adult) 02/12/2012 documented as of this encounter Social History Tobacco Use Types Packs/Day Years Used Date Smoking Tobacco: Never Smokeless Tobacco: Never Alcohol Use Standard Drinks/Week Comments No 0 (1 standard drink = 0.6 oz pur e alcohol) PHQ-2 Answer Date Recorded PHQ-2 Score 0 02/15/2020 Hunger Vital Sign Answer Date Recorded Within the past 12 months, y ou worried that your food would run out before you got the money to buy more. Never true 08/16/19 21 Within the past 12 months, t he food you bought just didn't last and you didn't have money to get more. Never true 08/15/2020 Sex and Gender Information Value Date Recorded Sex Assigned at Not on file Gender Identity Not on file Sexual Orientation Not on file Job Start Date Occupation Industry Not on file Not on file Not on file documented as of this encounter Plan of Treatment Upcoming Encounters Date Type Department Care Team (Late st Contact Info) Description 08/30/2023 11:00 AM EDT Imaging Vascular Lab, [facility] [address] [place] [address] 07/14/2024 10:20 AM EST Office Visit General Internal Medicine [facility] [address] [facility] [place] [address] Paz Casarez MD [address] [facility] [place] [address] Health Maintenance Due Date Last Done Comments Zoster Vaccines (2 of 3) 04/08/2012 02/12/2012 *BISPHONATE OR OTHER ACCEPTABLE MEDICATION NEEDED FOR OSTEOPOROSIS (REFER TO SMARTSET #1146) 08/17/2020 Depression Screening 02/14/2021 02/15/2020 DXA Scan 05/31/2021 05/31/2019, 07/2014, 01/24/2013, Additional history exists COVID-19 Vaccine ( season) 2023 Influenza Vaccine (FLU shot) (#1) 2023 03/21/2019, 06/06/2018, 03/13/2015, Additional history exists Albumin/Creatinine Ratio 08/07/2023 023, 03/10/2021, 02/15/2020, Additional history exists Diabetic Foot Exam 08/13/2023 08/12/2022, 1 , 01/03/2018, Additional history exists HbA1c 02/06/2024 08/06/2023, 07/16, 09/15/2021, Additional history exists GFR 08/05/2024 08/06/2023, 07/16, 09/15/2021, Additional history exists Diabetic Eye Exam 08/08/2024 08/09/2023, , 08/03/2022, Additional history exists DTaP,Tdap,and Td Vaccines (3 - Td or Tdap) 01/04/2028 01/03/2018, 08/07/2007, 08/07/2007 Pneumococcal Vaccine: 65+ Years Completed 01/03/2018, 03/03/2008 VITAMIN D LEVEL ONCE IN A LIFETIME-USE SMARTSET# 99864 Completed 02/13/2020, 11/03/2012, 08/11/2012, Additional history exists GARDASIL-HPV IMMUNIZATION SERIES Aged Out No longer eligible based on patient's age to complete this topic Hepatitis B Aged Out No longer eligi ble based on patient's age to complete this topic MENINGOCOCCAL (MENACTRA/MENVEO) Aged Out No longer eligible based on patient's age to complete this topic documented as of this encounter Medical Devices Implanted Type Area Director Retirement Device Identifier Shelf Expiration Date Model / Serial / Lot Lens Intraoc 23.0 - [id number] - [id number] Implanted:Qty: 1 on 10/04/2018 by Andres Asher MD at OR [facility] Right: Eye [employer] 03/16/2023 [id number] / [id number] / [id number] Lens Intraoc 23.5 - [id number] - [id number] Implanted:Qty: 1 on 10/13/2018 by Andres Asher MD at OR [facility] Left: Eye [employer] 03/16/2023 [id number] / [id number] / [id number] documented as of this encounter Care Teams Associate Web Developer Relationship Specialty Start Date End Date Paz Casarez MD [address] [place] [address] PCP - General Internal Medicine 01/20/11 documented as of this encounter
--- OUTSIDE RECORDS SUMMARY | 2023-10-28 00:47 | External Medical Summary | Summary of Care ---
Author Name Unknown Organization [facility] Address [address] [place] [facility] [place] [address] Phone [phone] Care Team Providers Care Regrind Mill Operator Name Role Phone Michelle Casarez MD Primary Care Provider [phone] Reason for Visit * Reason Comments eRx-Medication Refill Encounter Details Date Type Department Care Team (Late st Contact Info) Description 09/21/2023 Refill General Internal Medicine [facility] [address] [facility] [place] [id number] Michelle Casarez MD [address] [facility] [place] [id number] HTN, goal below 140/90; Hyperlipidemia with target LDL less than 100 Allergies Active Allergy Reactions Criticality Noted Date Comments Apap-Calcium Carbonate Hives 05/23/2018 Lisinopril Cough 06/18/2014 documented as of this encounter (statuses as of 09/22/2023) Medications Medication Sig Dispensed Refills Start Date End Date Status WOMENS MULTIVITAMIN PLUS PO TABS 1 daily 0 Active VITAMIN D 1000 UNITS PO CAPSIndications:V itamin D deficiency 2 capsule daily 30 Cap 11 08/15/2012 Active Losartan Potassium 25 MG Oral Tablet (Cozaar)Indicatio ns:HTN, goal below 140/90 TAKE 1 TABLET BY MOUTH IN THE MORNING 90 Tablet 3 09/22/2023 Active Atorvastatin Calcium 40 MG Oral Tablet (Lipitor)Indicati ons:Hyperlipidemi a with target LDL less than 100 Take 1 Tablet by mouth in the morning. 90 Tablet 3 09/22/2023 Active Losartan Potassium 25 MG Oral Tablet (Cozaar)Indicatio ns:HTN, goal below 140/90 Take 1 Tablet by mouth in the morning. 90 Tablet 3 08/12/2022 4 Discontinued Atorvastatin Calcium 40 MG Oral Tablet (Lipitor)Indicati ons:Hyperlipidemi a with target LDL less than 100 Take 1 Tablet by mouth in the morning. 90 Tablet 3 08/12/2022 4 Discontinued(Refi ll) documented as of this encounter (statuses as of 09/22/2023) Active Problems Problem Noted Date Diagnosed Date [...] as of this encounter (statuses as of 09/22/2023) Resolved Problems Problem Noted Date Diagnosed Date Resolved Date Cataract of both eyes 09/16/20182020 No diabetic retinopathy in both eyes 07/22/2018 08/15/2020 Dyslipidemia, goal LDL below 160 08/06/2008 05/01/2009 Overview: Per Lipid Taxonomy. documented as of this encounter (statuses as of 09/22/2023) Immunizations Name Administration Dates Next Due [id number] (Pentacil), Peds 08/07/2007 Pneumococcal Conjugate Vacc, 13 [...] on file documented as of this encounter Miscellaneous Notes * Telephone Encounter - Gillian Connolly RP - 09/22/2023 9:40 AM EDTSigned Prescriptions: Disp Refills Losartan Potassium 25 MG Oral Tablet (Coza*90 Tab*3 Sig: TAKE 1 TABLET BY MOUTH IN THE MORNING Authorizing Provider: MICHELLE CASAREZ Ordering User: GILLIAN CONNOLLY Atorvastatin Calcium 40 MG Oral Tablet (Li*90 Tab*3 Sig: Take 1 Tablet by mouth in the morning. Authorizing Provider: MICHELLE CASAREZ Ordering User: GILLIAN CONNOLLY -- * Telephone Encounter - Gillian Connolly RP - 09/22/2023 9:40 AM EDTSigned Prescriptions: Disp Refills Losartan Potassium 25 MG Oral Tablet (Coza*90 Tab*3 Sig: TAKE 1 TABLET BY MOUTH IN THE MORNING Authorizing Provider: MICHELLE CASAREZ Ordering User: GILLIAN CONNOLLY Atorvastatin Calcium 40 MG Oral Tablet (Li*90 Tab*3 Sig: Take 1 Tablet by mouth in the morning. Authorizing Provider: MICHELLE CASAREZ Ordering User: GILLIAN CONNOLLY -- * Telephone Encounter - Alanis Padilla [facility] - 09/21/2023 9:10 AM EDT Did you pend patient's preferred pharmacy and medication before forwarding?yes Pharmacy: REPLACED BY [facility]- [place] Pending Prescriptions: Disp Refills Losartan Potassium 25 MG Oral Tablet (Coz*90 Tab*0 Sig: TAKE 1 TABLET BY MOUTH IN THE MORNING Atorvastatin Calcium 40 MG Oral Tablet (L*90 Tab*3 Sig: Take 1 Tablet by mouth in the morning. Last Visit: 08/11/2023 (in office), Visit date not found (telemedicine) Next Visit: 07/14/2024 If no future appointments scheduled, and last appointment is greater than a year ago, please schedule patient for a follow-up appointment Last date the medication was ordered: 08/12/2022 Is this request for a controlled substance?No Urine Drug Screen:No results found for this or any previous visit. Patient Phone Numbers Labs: Lab Results Component Value Date/Time CREAT 0.8 08/06/2023 09:44 AM CREAT 0.8 02/13/2020 10:43 AM POTASSIUM 4.6 08/06/2023 09:44 AM POTASSIUM 4.2 02/13/2020 10:43 AM LDLCALC 154 (H) 08/06/2023 09:44 AM LDLCALC 73 02/13/2020 10:43 AM LDLDIRECT NOT APPLICABLE 02/13/2020 10:43 AM ALT 16 08/06/2023 09:44 AM ALT 28 02/13/2020 10:43 AM HGBA1C 6.9 (H) 08/06/2023 09:44 AM HGBA1C 7.0 (H) 02/13/2020 10:43 AM documented in this encounter Plan of Treatment Upcoming Encounters Date Type Department Care Team (Late st Contact Info) Description 07/14/2024 10:20 AM EST Office Visit General Internal Medicine [facility] [place] [address] [facility] [place] [id number] Michelle Casarez MD [address] [facility] [place] [address] Health Maintenance Due Date Last Done Comments Zoster Vaccines (2 of 3) 04/08/2012 02/12/2012 *BISPHONATE OR OTHER ACCEPTABLE MEDICATION NEEDED FOR OSTEOPOROSIS (REFER TO SMARTSET #1146) 08/17/2020 Depression Screening 02/14/2021 02/15/2020 DXA Scan 05/31/2021 05/31/2019, 11/0 07/2014, 01/24/2013, Additional history exists COVID-19 Vaccine ( season) 2023 Albumin/Creatinine Ratio 08/07/2023 023, 03/10/2021, 02/15/2020, Additional history exists Diabetic Foot Exam 08/13/2023 08/12/2022, 1 , 01/03/2018, Additional history exists Influenza Vaccine (FLU shot) (Season Ended) 2024 03/21/2019, 06/06/2018, 03/13/2015, Additional history exists HbA1c 02/06/2024 08/06/2023, 07/16, 09/15/2021, Additional history exists GFR 08/05/2024 08/06/2023, 07/16, 09/15/2021, Additional history exists Diabetic Eye Exam 08/08/2024 08/09/2023, , 08/03/2022, Additional history exists DTaP,Tdap,and Td Vaccines (3 - Td or Tdap) 01/04/2028 01/03/2018, 08/07/2007, 08/07/2007 Pneumococcal Vaccine: 65+ Years Completed 01/03/2018, 03/03/2008 VITAMIN D LEVEL ONCE IN A LIFETIME-USE SMARTSET# 23031 Completed 02/13/2020, 11/03/2012, 08/11/2012, Additional history exists [...] this encounter Medical Devices Implanted Type Area Staff Air Defense Officer Device Identifier Shelf Expiration Date Model / Serial / Lot Lens Intraoc 23.0 - [id number] - [id number] Implanted:Qty: 1 on 10/04/2018 by Andres Asher MD at OR [facility] Right: Eye [employer] 03/16/2023 [id number] / [id number] / [id number] Lens Intraoc 23.5 - [id number] - [id number] Implanted:Qty: 1 on 10/13/2018 by Andres Asher MD at OR [facility] Left: Eye [employer]OM[employer] 03/16/2023 [id number] / [id number] / [id number] documented as of this encounter Visit Diagnoses Diagnosis HTN, goal below 140/90 Unspecified essential hypertension Hyperlipidemia with target LDL less than 100 Other and unspecified hyperlipidemia documented in this encounter Care Teams Regrind Mill Operator Relationship Specialty Start Date End Date Michelle Casarez MD [address] [facility] [place] [address] PCP - General Internal Medicine 01/20/11 documented as of this encounter
--- OUTSIDE RECORDS SUMMARY | 2023-10-28 00:47 | External Medical Summary | Summary of Care ---
Author Name Unknown Organization [facility] Address [address] [place] [address] Phone [phone] Care Team Providers Care Reporter Anchor Name Role Phone Paz Casarez MD Primary Care Provider [phone] Reason for Visit * Reason Comments Follow Up Annual check up Encounter Details Date Type Department Care Team (Late st Contact Info) Description 08/11/2023 9:20 AM EDT Office Visit General Internal Medicine [facility] [address] [facility] [place] [address] Paz Casarez MD [address] [facility] [address] HTN, goal below 140/90*; Hyperlipidemia with target LDL less than 100; DM type 2, goal HbA1c < 7.5% ([facility]); Age-related osteoporosis without current pathological fracture; Vaccine refused by patient; History of herpes zoster; Asymptomatic bilateral carotid artery stenosis Allergies Active Allergy Reactions Criticality Noted Date Comments Apap-Calcium Carbonate Hives 05/23/2018 Lisinopril Cough 06/18/2014 documented as of this encounter (statuses as of 08/12/2023) Medications Medication Sig Dispensed Refills Start Date End Date Status WOMENS MULTIVITAMIN PLUS PO TABS 1 daily 0 Active VITAMIN D 1000 UNITS PO CAPSIndications:Vi tamin D deficiency 2 capsule daily 30 Cap 11 08/15/2012 Active Losartan Potassium 25 MG Oral Tablet (Cozaar)Indication s:HTN, goal below 140/90 Take 1 Tablet by mouth in the morning. 90 Tablet 3 08/12/2022 Active Atorvastatin Calcium 40 MG Oral Tablet (Lipitor)Indicatio ns:Hyperlipidemia with target LDL less than 100 Take 1 Tablet by mouth in the morning. 90 Tablet 3 08/12/2022 Active ASPIRIN 81 MG PO TABS 1 daily 0 08/11/2023 Discontinued documented as of this encounter (statuses as of 08/12/2023) Active Problems Problem Noted Date Diagnosed Date [...] as of this encounter (statuses as of 08/12/2023) Resolved Problems Problem Noted Date Diagnosed Date Resolved Date Cataract of both eyes 09/16/20182020 No diabetic retinopathy in both eyes 07/22/2018 08/15/2020 Dyslipidemia, goal LDL below 160 08/06/2008 05/01/2009 Overview: Per Lipid Taxonomy. documented as of this encounter (statuses as of 08/12/2023) Immunizations Name Administration Dates Next Due [id number] (Pentacil), Peds 08/07/2007 Pneumococcal Conjugate Vacc, 13 [...] on file documented as of this encounter Last Filed Vital Signs Vital Sign Reading Time Taken Comments Blood Pressure 124/82 08/11/2023 9:09 AM EDT Pulse 74 08/11/2023 9:09 AM EDT Temperature 36.8 C (98.2 F) 08/11/2023 9:09 AM ED T Respiratory Rate - - Oxygen Saturation 96% 08/11/2023 9:09 AM EDT Inhaled Oxygen Concentration - - Weight 64.1 kg (141 lb 6.4 oz) 08/11/2023 9:09 A M EDT Height 157.9 cm (5' 2.17") 08/11/2023 9:09 AM ED T Body Mass Index 25.73 08/11/2023 9:09 AM EDT documented in this encounter Progress Notes * Paz Casarez MD - 08/11/2023 9:18 AM EDT Images from the original note were not included. History of Present Illness Tonia Buckley is a 83 year old female that presents for Follow Up (Annual check up) 83 YOF with PMH of DM, HTN, Hyperlipidemia, vit d def,parathyroid adenoma s/p removal , sensorineural hearing loss presents here for recheck. Acute concern :- -none Interimmedical history : under stress as her was sick with Lyme and missed her labs Watching diet and exercise : yes gradually back to it Routine labs : Labs reviewed with patient. Cholesterol better btu still not at goal , sugar slightly up but acceptable Routine HM : declines all vaccines, dexa and foot exam . Just had eye exam Chronic medical problem: reviewed and stable Physical Exam Vitals: 08/11/23 0909 Temp: 36.8 C (98.2 F) Pulse: 74 SpO2: 96% BP: 124/82 BMI: 25.73 Physical Exam Constitutional: General: She is not in acute distress. Appearance: Normal appearance. She is normal weight. HENT: Head: Normocephalic. Right Ear: Tympanic membrane, ear canal and external ear normal. Left Ear: Tympanic membrane, ear canal and external ear normal. Mouth/Throat: Mouth: Mucous membranes are moist. Pharynx: No oropharyngeal exudate or posterior oropharyngeal erythema. Cardiovascular: Rate and Rhythm: Normal rate and regular rhythm. Pulses: Normal pulses. Heart sounds: Normal heart sounds. No murmur heard. Pulmonary: Effort: Pulmonary effort is normal. No respiratory distress. Breath sounds: Normal breath sounds. No wheezing. Abdominal: General: Bowel sounds are normal. Palpations: Abdomen is soft. Musculoskeletal: General: No swelling or tenderness. Normal range of motion. Cervical back: Normal range of motion. No rigidity or tenderness. Right lower leg: No edema. Left lower leg: No edema. Lymphadenopathy: Cervical: No cervical adenopathy. Skin: General: Skin is warm. Findings: No lesion. Neurological: Mental Status: She is alert. Mental status is at baseline. Psychiatric: Mood and Affect: Mood normal. I have reviewed the following results: CMP, Lipid Panel, Hemoglobin A1C, and CBC Assessment and Plan HTN, goal below 140/90 Stable Continue current treatment as directed Hyperlipidemia with target LDL less than 100 Stable Continue current treatment as directed - LIPID PANEL WITH DIRECT LDL IF TG IS HIGH; Future - COMPREHENSIVE METABOLIC PANEL; Future DM type 2, goal HbA1c < 7.5% ([facility]) Doing well on conservative measure Continue to watch diet and exercise Wwill follow lab closely Can consider low dose metformin but pt declined any new med - ALBUMIN / CREATININE RATIO, URINE; Future - HEMOGLOBIN A1C; Future Age-related osteoporosis without current pathological fracture Vaccine refused by patient History of herpes zoster Asymptomatic bilateral carotid artery stenosis - VASC DUPLEX CAROTID BILAT Wrap-Up Time: I spent a total of 30-39 minutes (exact time 36 mins) on the date of service in preparation, delivery, and documentation of the care provided to Tonia Buckley excluding any time spent in the performance of separately billed services. documented in this encounter Nursing Notes * Renetta Tierney LPN - 08/11/2023 9:09 AM EDT Chief Complaint Patient presents with Follow Up Annual check up Patient has been verbally educated on the need or importance of Dexa Scan, Diabetic Foot Exam, and Immunizations: shingles and influenza and has declined topic(s). documented in this encounter Plan of Treatment Upcoming Encounters Date Type Department Care Team (Late st Contact Info) Description 08/30/2023 11:00 AM EDT Imaging Vascular Lab, [facility] 2nd Floor, [place] [address] [facility] [place] [address] 07/14/2024 10:20 AM EST Office Visit General Internal Medicine [facility] [address] [facility] [place] [address] Paz Casarez MD 200 [facility] [address] Scheduled Orders Name Type Priority Associated Diagnoses Orde r Schedule ALBUMIN / CREATININE RATIO, URINE Lab Routine DM type 2, goal HbA1c < 7.5% (HCC) Expected: 08/11/2023 (Approximate), Expires: 08/10/2024 VASC DUPLEX CAROTID BILAT Medical Imaging Routine Asymptomatic bilateral carotid artery stenosis Ordered: 08/11/2023 LIPID PANEL WITH DIRECT LDL IF TG IS HIGH Lab Routine Hyperlipidemia with target LDL less than 100 Expected: 01/11/2024, Expires: 08/10/2024 COMPREHENSIVE METABOLIC PANEL Lab Routine Hyperlipidemia with target LDL less than 100 Expected: 01/11/2024, Expires: 08/10/2024 HEMOGLOBIN A1C Lab Routine DM type 2, goal HbA1c < 7.5% (HCC) Expected: 01/11/2024, Expires: 08/10/2024 Health Maintenance Due Date Last Done Comments [...] D LEVEL ONCE IN A LIFETIME-USE SMARTSET# [id number] Completed 02/13/2020, 11/03/2012, 08/11/2012, Additional history exists [...] this encounter Medical Devices Implanted Type Area Loan Closer Device Identifier Shelf Expiration Date Model / Serial / Lot Lens Intraoc 23.0 - [id number] - [id number] Implanted:Qty: 1 on 10/04/2018 by Andres Asher MD at OR [facility] Right: Eye [employer] 03/16/2023 [id number] / [id number] / [id number] Lens Intraoc 23.5 - [id number] - [id number] Implanted:Qty: 1 on 10/13/2018 by Andres Asher MD at OR [facility] Left: Eye [employer] 03/16/2023 [id number] / [id number] / [id number] documented as of this encounter Visit Diagnoses Diagnosis HTN, goal below 140/90- Primary Unspecified essential hypertension Hyperlipidemia with target LDL less than 100 Other and unspecified hyperlipidemia DM type 2, goal HbA1c < 7.5% (HCC) Age-related osteoporosis without current pathological fracture Senile osteoporosis Vaccine refused by patient Vaccination not carried out for other reason History of herpes zoster Personal history of other infectious and parasitic disease Asymptomatic bilateral carotid artery stenosis Occlusion and stenosis of multiple and bilateral precerebral arteries without mention of cerebral infarction documented in this encounter Care Teams Reporter Anchor Relationship Specialty Start Date End Date Paz Casarez MD [address] [place] [address] PCP - General Internal Medicine 01/20/11 documented as of this encounter
--- OUTSIDE RECORDS SUMMARY | 2023-10-28 00:48 | External Medical Summary ---
Author Name Unknown Address Unknown Organization [id number]:[facility] [place] [address] [facility] [place] [address] Laboratory Report Ordering Provider Test Date Status ANA MARTINEZALI 08/06/2023 09:44:37 Final Observation Date Value Abnormality Reference (Units ) Status Triglyceride 08/06/2023 09:44:37 131 <=174 ( mg/dL) Final Triglyceride Reference Range s (mg/dL):
<150 Acceptable
150-174 Borderline high
175-499 High
>=500 Very high Cholesterol 08/06/2023 09:44:37 227 Above high normal <200 (mg/dL) Final Total Cholesterol Reference Ranges (mg/dL):
<200 Desirable
200-239 Borderline high
>=240 High HDL 08/06/2023 09:44:37 47 Below low normal >49 (mg/dL) Final HDL Cholesterol Reference Ra nges (mg/dL):
>=60 High (Desirable)
<50 Low (Undesirable) For Females
<40 Low (Undesirable) For Males NON-HDL CHOLESTEROL 08/06/2023 09:44:37 180 Above high normal <=159 (mg/dL) Final Non-HDL Cholesterol Referenc e Range (mg/dL):
<100 Target level for high risk ASCVD patient
<130 Optimal for general population
130-159 Near optimal for general population
160-189 Borderline High
190-219 High
>=220 Very High LDL, (calculated) 08/06/2023 09:44:37 154 Above high n ormal <=129 (mg/dL) Final LDL Cholesterol Reference Ra nges (mg/dL):
<70 Target level for high risk ASCVD patient
<100 Optimal for general population
100-129 Near optimal for general population
130-159 Borderline high
160-189 High
>=190 Very high Performing Location [facility] [place] - [address] [facility] [address]
--- OUTSIDE RECORDS SUMMARY | 2023-10-28 00:48 | External Medical Summary | Summary of Care ---
Author Name Unknown Organization [facility] Address [address] [place] [address] Phone [phone] Care Team Providers Care Treasury Accountant Name Role Phone Paz Casarez MD Primary Care Provider [phone] Encounter Details Date Type Department Care Team (Late st Contact Info) Description 08/09/2023 Orders Only General Internal Medicine [facility] 200 [facility] [place], [place] [id number] Paz Casarez MD [address] [place] [address] Allergies Active Allergy Reactions Criticality Noted Date Comments Apap-Calcium Carbonate Hives 05/23/2018 Lisinopril Cough 06/18/2014 documented as of this encounter (statuses as of 08/09/2023) Medications Medication Sig Dispensed Refills Start Date End Date Status ASPIRIN 81 MG PO TABS 1 daily 0 Act ishan WOMENS MULTIVITAMIN PLUS PO TABS 1 daily [...] as of this encounter (statuses as of 08/09/2023) Active Problems Problem Noted Date Diagnosed Date [...] as of this encounter (statuses as of 08/09/2023) Resolved Problems Problem Noted Date Diagnosed Date Resolved Date Cataract of both eyes 09/16/20182020 No diabetic retinopathy in both eyes 07/22/2018 08/15/2020 Dyslipidemia, goal LDL below 160 08/06/2008 05/01/2009 Overview: Per Lipid Taxonomy. documented as of this encounter (statuses as of 08/09/2023) Immunizations Name Administration Dates Next Due [id number] (Pentacil), Peds 08/07/2007 Pneumococcal Conjugate Vacc, 13 [...] AM EDT Office Visit General Internal Medicine [facility] [place] [address] [place] [address] Paz Casarez MD [address] [place], [place] [address] Health Maintenance Due Date Last Done Comments [...] D LEVEL ONCE IN A LIFETIME-USE SMARTSET# [id number] Completed 02/13/2020, 11/03/2012, 08/11/2012, Additional history exists [...] this encounter Medical Devices Implanted Type Area Long Lines Operator Device Identifier Shelf Expiration Date Model / Serial / Lot Lens Intraoc 23.0 - [id number] - [id number] Implanted:Qty: 1 on 10/04/2018 by Andres Asher MD at OR [facility] Right: Eye [employer] 03/16/2023 [id number] / [id number] / [id number] Lens Intraoc 23.5 - [id number] - [id number] Implanted:Qty: 1 on 10/13/2018 by Andres Asher MD at OR [facility] Left: Eye [employer] 03/16/2023 [id number] / [id number] / [id number] documented as of this encounter Procedures Procedure Name Priority Date/Time Associated Diagnosis Comments DIABETIC EYE EXAM Routine 08/09/2023 documented in this encounter Results * DIABETIC EYE EXAM (08/09/2023) 08/09/2023 History Per Patient OTHER OUTSIDE LAB (SEE SCANNED REPORT) documented in this encounter Care Teams Treasury Accountant Relationship Specialty Start Date End Date Paz Casarez MD [address] [place] [address] [place] [address] PCP - General Internal Medicine 01/20/11 documented as of this encounter
--- OUTSIDE RECORDS SUMMARY | 2023-10-28 00:48 | External Medical Summary ---
Author Name Unknown Address Unknown Organization K01:[facility]ORY [facility] [place] - [address] [facility] [address] [facility] [address] Laboratory Report Ordering Provider Test Date Status LAWANDA MARTINEZ 08/06/2023 09:44:37 Final Observation Date Value Abnormality Reference (Units ) Status HbA1C 08/06/2023 09:44:37 6.9 Above high normal 4. 0-5.6 (%) Final The use of HbA1c to monitor glycemic status is based on normal hemoglobin and HbA composition. This test should not be used in patients with abnormal hemoglobin that affects the half life of the red blood cell or the in vivo glycation rates. Glucose, estimated average 08/06/2023 09:44:37 151 Above high normal <126 (mg/dL) Levon holt Performing Location LAB[facility]ORY [facility] [place] - [address] [facility] [address]
--- OUTSIDE RECORDS SUMMARY | 2023-10-28 00:48 | External Medical Summary | Summary of Care ---
Author Name Unknown Organization [facility] Address [address] [place] [facility] [place] [place] [address] Phone [phone] Care Team Providers Care Powerhouse Mechanic Helper Name Role Phone Paz Casarez MD Primary Care Provider [phone] Reason for Visit * Reason Onset Date Comments MyCode Nonconsent - Not interested at this time 08/11/2023 Encounter Details Date Type Department Care Team (Late st Contact Info) Description 08/11/2023 Orders Only Outcomes Research Department [address] [place] [address] Inna Haas CHRA MyCode Nonconsent Documentation Allergies Active Allergy Reactions Criticality Noted Date Comments Apap-Calcium Carbonate Hives 05/23/2018 Lisinopril Cough 06/18/2014 documented as of this encounter (statuses as of 08/11/2023) Medications Medication Sig Dispensed Refills Start Date [...] as of this encounter (statuses as of 08/11/2023) Active Problems Problem Noted Date Diagnosed Date [...] as of this encounter (statuses as of 08/11/2023) Resolved Problems Problem Noted Date Diagnosed Date Resolved Date Cataract of both eyes 09/16/20182020 No diabetic retinopathy in both eyes 07/22/2018 08/15/2020 Dyslipidemia, goal LDL below 160 08/06/2008 05/01/2009 Overview: Per Lipid Taxonomy. documented as of this encounter (statuses as of 08/11/2023) Immunizations Name Administration Dates Next Due [id number] (Pentacil), Peds 08/07/2007 Pneumococcal Conjugate Vacc, 13 [...] on file documented as of this encounter Progress Notes * Inna Haas CHRA - 08/11/2023 11:52 AM EDT MyCode Nonconsent Documentation Tonia Buckley was approached in the clinic regarding participation in the MyCode Project and did notconsent. documented in this encounter Plan of Treatment Upcoming Encounters Date Type Department Care Team (Late st Contact Info) Description 08/30/2023 11:00 AM EDT Imaging Vascular Lab, [place] 2nd Floor, [address] [place] [address] 07/14/2024 10:20 AM EST Office Visit General Internal Medicine [facility] [address] [facility] [address] [place] [address] Paz Casarez MD 200 [facility] [place] [address] Health Maintenance Due Date Last Done Comments [...] D LEVEL ONCE IN A LIFETIME-USE SMARTSET# [id number] Completed 02/13/2020, 11/03/2012, 08/11/2012, Additional history exists [...] this encounter Medical Devices Implanted Type Area Biology Specimen Technician Device Identifier Shelf Expiration Date Model / Serial / Lot Lens Intraoc 23.0 - [id number] - [id number] Implanted:Qty: 1 on 10/04/2018 by Andres Asher MD at OR [facility] Right: Eye [employer] 03/16/2023 [id number] / [id number] / [id number] Lens Intraoc 23.5 - [id number] - [id number] Implanted:Qty: 1 on 10/13/2018 by Andres Asher MD at [facility] Left: Eye [employer]OM[employer] 03/16/2023 [id number] / [id number] / [id number] documented as of this encounter Care Teams Powerhouse Mechanic Helper Relationship Specialty Start Date End Date Paz Casarez MD 200 [place] [address] PCP - General Internal Medicine 01/20/11 documented as of this encounter
--- OUTSIDE RECORDS SUMMARY | 2023-10-28 00:48 | External Medical Summary ---
Author Name Unknown Address Unknown Organization K09:LAB[facility]ATORY [facility] - [address] [place] [address] Laboratory Report Ordering Provider Test Date Status LAWANDA MARTINEZ 08/06/2023 09:44:37 Final Observation Date Value Abnormality Reference (Units ) Status BUN 08/06/2023 09:44:37 15 6-20 (mg/dL) Final Creatinine 08/06/2023 09:44:37 0.8 0.5-1.0 (mg/dL) Final Glomerular filtration rate/1.73 sq M.predicted [Volume Rate/Area] in Serum, Plasma or Blood by Creatinine-based formula (CKD-EPI) 08/06/2023 09:44:37 70 >=60 (mL/min) Final eGFR is calculated based on the CKD-EPI 2020 equation Sodium 08/06/2023 09:44:37 139 135-146 (m mol/L) Final Potassium 08/06/2023 09:44:37 4.6 3.5-5.1 (m mol/L) Final Cl 08/06/2023 09:44:37 100 98-107 (mm ol/L) Final CO2 08/06/2023 09:44:37 26 22-32 (mmo l/L) Final Anion gap 08/06/2023 09:44:37 13 7-15 (mmol /L) Final Glucose 08/06/2023 09:44:37 120 70-120 (mg /dL) Final Albumin 08/06/2023 09:44:37 4.3 3.8-5.0 (g /dL) Final AST (Aspartate aminotransferase) 08/06/2023 09:44:37 19 10-35 (U/L) Final Alk Phos 08/06/2023 09:44:37 97 35-130 (U/ L) Final Bilirubin, Total 08/06/2023 09:44:37 0.7 <=1 .2 (mg/dL) Final Calcium 08/06/2023 09:44:37 9.5 8.4-10.2 ( mg/dL) Final Protein 08/06/2023 09:44:37 7.0 6.0-8.3 (g /dL) Final ALT (Alanine aminotransferase) 08/06/2023 09:44:37 16 10-35 (U/L) Final Performing Location [facility]ORY [facility] [address] [place] [address]
--- OUTSIDE RECORDS SUMMARY | 2023-10-28 00:48 | External Medical Summary | Summary of Care ---
Author Name Unknown Organization [facility] Address [address] [place] [address] Phone [phone] Care Team Providers Care Screen Printing Paster Name Role Phone Paz Casarez MD Primary Care Provider [phone] Reason for Visit * Reason Comments Outpatient Testing Encounter Details Date Type Department Care Team (Late st Contact Info) Description 08/06/2023 10:00 AM EDT Laboratory Laboratory [facility] [place] [address] [place] [address] [facility] 200 [facility] [place] [address] Hyperlipidemia with target LDL less than 100; DM type 2, goal HbA1c < 7.5% ([facility]) Allergies Active Allergy Reactions Criticality Noted Date Comments Apap-Calcium Carbonate Hives 05/23/2018 Lisinopril Cough 06/18/2014 documented as of this encounter (statuses as of 08/06/2023) Medications Medication Sig Dispensed Refills Start Date [...] as of this encounter (statuses as of 08/06/2023) Active Problems Problem Noted Date Diagnosed Date [...] as of this encounter (statuses as of 08/06/2023) Resolved Problems Problem Noted Date Diagnosed Date Resolved Date Cataract of both eyes 09/16/20182020 No diabetic retinopathy in both eyes 07/22/2018 08/15/2020 Dyslipidemia, goal LDL below 160 08/06/2008 05/01/2009 Overview: Per Lipid Taxonomy. documented as of this encounter (statuses as of 08/06/2023) Immunizations Name Administration Dates Next Due [id number] (Pentacil), Peds 08/07/2007 Pneumococcal Conjugate Vacc, 13 [...] AM EDT Office Visit General Internal Medicine [facility] [address] [place] [address] [address] Paz Casarez MD [address] [place] [address] [address] Pending Results Name Type Priority Associated Diagnoses Date /Time COMPREHENSIVE METABOLIC PANEL Lab Routine Hyperlipidemia with target LDL less than 100 08/06/2023 9:44 AM EDT LIPID PANEL WITH DIRECT LDL IF TG IS HIGH Lab Routine Hyperlipidemia with target LDL less than 100 08/06/2023 9:44 AM EDT HEMOGLOBIN A1C Lab Routine DM type 2, goal HbA1c < 7.5% ([facility]) 08/06/2023 9:44 AM EDT Health Maintenance Due Date Last Done Comments Zoster Vaccines (2 of 3) 04/08/2012 02/12/2012 *BISPHONATE OR OTHER ACCEPTABLE MEDICATION NEEDED FOR OSTEOPOROSIS (REFER TO SMARTSET #1146) 08/17/2020 Depression Screening 02/14/2021 02/15/2020 DXA Scan 05/31/2021 05/31/2019, 07/2014, 01/24/2013, Additional history exists COVID-19 Vaccine ( season) 2023 Influenza Vaccine (FLU shot) (#1) 2023 03/21/2019, 06/06/2018, 03/13/2015, Additional history exists HbA1c 02/06/2023 08/06/2022, 06/2021, 03/10/2021, Additional history exists Diabetic Eye Exam 08/04/2023 08/03/2022, , 08/03/2022, Additional history exists Albumin/Creatinine Ratio 08/07/2023 023, 03/10/2021, 02/15/2020, Additional history exists GFR 08/07/2023 08/06/2022, 05/0 06/2021, 03/10/2021, Additional history exists Diabetic Foot Exam 08/13/2023 08/12/2022, 1 , 01/03/2018, Additional history exists DTaP,Tdap,and Td Vaccines (3 - Td or Tdap) 01/04/2028 01/03/2018, 08/07/2007, 08/07/2007 Pneumococcal Vaccine: 65+ Years Completed 01/03/2018, 03/03/2008 VITAMIN D LEVEL ONCE IN A LIFETIME-USE SMARTSET# [id number] Completed 02/13/2020, 11/03/2012, 08/11/2012, Additional history exists [...] this encounter Medical Devices Implanted Type Area In School Suspension Aide Device Identifier Shelf Expiration Date Model / Serial / Lot Lens Intraoc 23.0 - [id number] - [id number] Implanted:Qty: 1 on 10/04/2018 by Andres Asher MD at OR [facility] Right: Eye [employer] 03/16/2023 [id number] / [id number] / [id number] Lens Intraoc 23.5 - [id number] - [id number] Implanted:Qty: 1 on 10/13/2018 by Andres Asher MD at OR [facility] Left: Eye [employer]OMB 03/16/2023 [id number] / [id number] / [id number] documented as of this encounter Visit Diagnoses Diagnosis Hyperlipidemia with target LDL less than 100 Other and unspecified hyperlipidemia DM type 2, goal HbA1c < 7.5% (HCC) documented in this encounter Care Teams Screen Printing Paster Relationship Specialty Start Date End Date Paz Casarez MD [address] [place] [address] PCP - General Internal Medicine 01/20/11 documented as of this encounter
--- OUTSIDE RECORDS SUMMARY | 2023-10-28 00:48 | External Medical Summary | Summary of Care ---
Author Name Unknown Organization [facility] Address [address] [place] [address] Phone [phone] Care Team Providers Care Vp Foundation Name Role Phone Paz Casarez MD Primary Care Provider Reason for Visit * Reason Onset Date Comments Health Maintenance 08/04/2023 Encounter Details Date Type Department Care Team (Late st Contact Info) Description 08/04/2023 Telephone General Internal Medicine [facility] [address] [facility] [place] [id number] Paz Casarez MD [address] [place] [address] Health Maintenance Allergies Active Allergy Reactions Criticality Noted Date Comments Apap-Calcium Carbonate Hives 05/23/2018 Lisinopril Cough 06/18/2014 documented as of this encounter (statuses as of 08/04/2023) Medications Medication Sig Dispensed Refills Start Date [...] as of this encounter (statuses as of 08/04/2023) Active Problems Problem Noted Date Diagnosed Date [...] as of this encounter (statuses as of 08/04/2023) Resolved Problems Problem Noted Date Diagnosed Date Resolved Date Cataract of both eyes 09/16/20182020 No diabetic retinopathy in both eyes 07/22/2018 08/15/2020 Dyslipidemia, goal LDL below 160 08/06/2008 05/01/2009 Overview: Per Lipid Taxonomy. documented as of this encounter (statuses as of 08/04/2023) Immunizations Name Administration Dates Next Due [id number] (Pentacil), Peds 08/07/2007 Pneumococcal Conjugate Vacc, 13 [...] encounter Miscellaneous Notes * Telephone Encounter - Bianka Clark LPN - 08/04/2023 10:38 AM EDT Care Gaps Comprehensive Care Outreach Last Office/Telemedicine Visit: 08/12/2022 (in office), Visit date not found (telemedicine) Next Office Visit: 08/11/2023 Hemoglobin AIC Results: Lab Results Component Value Date/Time HEMOGLOBIN A1C - [facility] 6.7 (H) 08/06/2022 08:24 AM HEMOGLOBIN A1C - [facility] 7.5 (H) 09/15/2021 08:51 AM HEMOGLOBIN A1C - [facility] 6.7 (H) 03/10/2021 09:59 AM HEMOGLOBIN A1C - [facility] 7.0 (H) 02/13/2020 10:43 AM HEMOGLOBIN A1C - [facility] 6.8 (H) 03/17/2019 10:38 AM HEMOGLOBIN A1C - [facility] 6.6 (H) 09/06/2018 10:19 AM BP Readings from Last 1 Encounters: 08/12/22 128/84 Reviewed Health Maintenance below: Health Maintenance Topic Date Due Zoster Vaccines (2 of 3) 04/08/2012 *BISPHONATE OR OTHER ACCEPTABLE MEDICATION NEEDED FOR OSTEOPOROSIS (REFER TO SMARTSET #1146) Never done Depression Screening 02/14/2021 DXA Scan 05/31/2021 Influenza Vaccine (FLU shot) (1) 01/15/2023 COVID-19 Vaccine (1 - season) Never done HbA1c 02/06/2023 Diabetic Eye Exam 08/04/2023 Albumin/Creatinine Ratio 08/07/2023 Diabetic Foot Exam 08/13/2023 GFR 08/07/2023 Labs already ordered add urine Dexa Care Gap Outreach Action Taken: Unable to reach vm full documented in this encounter Plan of Treatment Upcoming Encounters Date Type Department Care Team (Late st Contact Info) Description 08/11/2023 9:20 AM EDT Office Visit General Internal Medicine [facility] [address] [place] [address] Paz Casarez MD [address] [facility] [place] [id number] Health Maintenance Due Date Last Done Comments Zoster Vaccines (2 of 3) 04/08/2012 02/12/2012 *BISPHONATE OR OTHER ACCEPTABLE MEDICATION NEEDED FOR OSTEOPOROSIS (REFER TO SMARTSET #1146) 08/17/2020 Depression Screening 02/14/2021 02/15/2020 DXA Scan 05/31/2021 05/31/2019, 1107/2014, 01/24/2013, Additional history exists COVID-19 Vaccine ( season) 2023 Influenza Vaccine (FLU shot) (#1) 2023 03/21/2019, 06/06/2018, 03/13/2015, Additional history exists HbA1c 02/06/2023 08/06/2022, 05/0 06/2021, 03/10/2021, Additional history exists Diabetic Eye [...] D LEVEL ONCE IN A LIFETIME-USE SMARTSET# 09984 Completed 02/13/2020, 11/03/2012, 08/11/2012, Additional history exists [...] this encounter Medical Devices Implanted Type Area Balloon Sander Device Identifier Shelf Expiration Date Model / Serial / Lot Lens Intraoc 23.0 - [id number] - [id number] Implanted:Qty: 1 on 10/04/2018 by Andres Asher MD at OR [facility] Right: Eye [employer] 03/16/2023 [id number] / [id number] / [id number] Lens Intraoc 23.5 - [id number] - [id number] Implanted:Qty: 1 on 10/13/2018 by Anders Asher MD at OR [facility] Left: Eye [employer] 03/16/2023 [id number] / [id number] / [id number] documented as of this encounter Care Teams Vp Foundation Relationship Specialty Start Date End Date Paz Casarez MD [address] [place] [address] PCP - General Internal Medicine 01/20/11 documented as of this encounter
[2023-10-28 09:08] LABS: Hematocrit (blood only) 34.8 % (37.0-47.0); Hemoglobin 11.7 g/dl (12.0-16.0); Mean Corpuscular Hemoglobin 30.9 pg (25.0-34.0); Mean Corpuscular Hgb Conc 33.6 g/dL (32.0-36.0); Mean Corpuscular Volume 91.8 fL (80.0-100.0); Mean Platelet Volume 12.6 fL (9.4-12.4); Platelet Count 119 K/uL (130-400); RDW Coefficient of Variation 14.2 % (11.5-14.5); RDW Standard Deviation 48.1 fL (36.4-46.3); Red Blood Count 3.79 M/uL (4.20-5.40); White Blood Count 6.04 K/ul (4.8-10.8)
[2023-10-28 09:32] LABS: Albumin Globulin Ratio 0.9 (0.9-2); Bilirubin,Total 0.4 mg/dl (0.2-1.0); Calcium 8.2 mg/dl (8.6-10.3); Est GFR (African American) 25.9 ml/min; Est GFR (Non-African American) 22.4 ml/min; Globulin 3.3 gm/dl (2.5-4.0); Potassium 4.6 mmol/L (3.5-5.1); Total Protein 6.3 gm/dl (6.0-8.3)
--- NOTE | 2023-10-28 14:04 | Urology Progress Note ---
Date of Service October 28, 2023 Assessment & Plan (1) Acute UTI: (2) RAJESH (acute kidney injury): (3) Ureteral stone: (4) Hydronephrosis: Plan 83yo/F admitted with an obstructing right renal pelvis stone, RAJESH, and suspected UTI S/p postop day 1 cystoscopy with right ureteroscopy and stent placement Patient doing well postoperatively without pain and/or signs of infection Labs are trending appropriately, continue to monitor Culture results are not available yet, trend antibiotics per UC She is handling the stent appropriately at this time Continue supportive care and pain management We will schedule outpatient follow-up for further surgical intervention for removal of stone Urology will follow peripherally, please contact us for any questions and/or change in patient's symptoms Admission and Anticipated Discharge Date Admission Date: October 27, 2023 Subjective Patient seen and resting comfortably in bed Denies dysuria, gross hematuria, fevers, chills, nausea, and vomiting. Denies abdominal, flank or back pain States " this is the best I felt in a month" Handling stent appropriately Baseline urinary symptoms, denies urinary frequency Labs reviewed 10/27/2024 WBCs 6.04 Hemoglobin 11.7 Glucose 202 Creatinine 2.0 Urine culture still pending Afebrile and hemodynamically stable Review of Systems Review of Systems: 14 point review of systems negative exce pt for otherwise indicated. Physical Exam Constitutional: well developed and well nourished; no acute distress Respiratory: normal respiratory effort and able to speak in complete sentences Musculoskeletal: Extremities: extremities normal to inspection Psychiatric: Orientation: alert and oriented x 3 Results & Data Vital Signs (Past 12 Hours) Vital Signs Temp Pulse Pulse Resp BP Pulse Ox O2 Del Method 10/28/23 11:49 36.4 C L 71 16 153/71 H 96 Room Air 10/28/23 07:56 36.3 C L 66 16 137/82 95 Room Air 10/28/23 07:22 63 10/28/23 04:22 36.3 C L 65 18 144/74 H 95 Room Air PG Care Time/CCT Total # of Minutes Spent Total Time Spent with Patient: Total time spent is greater than 50% in coordination of care (as documented) at patient's floor/unit and/or counseling patient: Coding Level of Care Code 25927 SUB INP/OBS CARE 2/35MIN Diagnoses Acute UTI N39.0 RAJESH (acute kidney injury) N17.9 Ureteral stone N20.1 Hydronephrosis N13.30 Hydronephrosis type: unspecified (4) Hydronephrosis Hydronephrosis type: unspecified Qualified Code(s): N13.30 - Unspecified hydronephrosis
--- NOTE | 2023-10-28 16:37 | Hospitalist Progress Note ---
Date of Service October 28, 2023 Assessment & Plan (1) RAJESH (acute kidney injury): Plan: 83-year-old female with past medical history significant for type 2 diabetes, hyperlipidemia, hypertension, osteoporosis, history of herpes zoster presents with right flank pain. Patient states she is having right flank pain on and off for last 2 to 3 weeks. But since last Wednesday got severe and seems persistent which prompted her to come to the ER. Patient also having dark urine. Denies any fevers. Normal bowel movements. No chest pain or shortness of breath. No cough. Had headache earlier improved now.. No dizziness. No runny nose or sore throat. Last couple of days appetite is down. Patient somewhat hard of hearing. Hemodynamics are okay. labs showing RAJESH, elevated LFTs. Urinalysis positive. CT abdomen pelvis showing right-sided hydronephrosis secondary to 0.8 cm calculus within the right renal pelvis. RAJESH Likely secondary to obstructive uropathy Cr 2.4>>2.0 Baseline creatinine 0.8 Hold losartan Avoid nephrotoxic agents as able Continue IV fluids Monitor renal function Renal function slowly improving Right renal calculus Obstructive uropathy -CT scan showing right-sided hydronephrosis and 0.8 cm calculus of the right renal pelvis --S/P cystoscopy, right retrograde pyelogram and right ureteral stent placement by Dr. Chaney on 10/27/2023 Pain control Appreciate urology input Needs follow-up with urology on discharge for definitive treatment of ureteral stone UTI Urine culture growing gram-negative bacilli Continue IV Rocephin Elevated LFTs Total bili 1.3, AST 115, ALT 92, alkaline phos is 246 CT abdomen pelvis gallbladder and bile ducts unremarkable. Liver unremarkable Lyme screen, anaplasma and Babesia smear negative Possible from ongoing infection Monitor LFTs Hypertension hold losartan due to RAJESH hydralazine prn monitor DM II Diet controlled HbA1c 6.9 Continue insulin while hospitalized Monitor BGs Hyperlipidemia hold statin Mild elevation of troponin Asymptomatic Likely due to renal insufficiency Patient denies chest pain DVT prophylaxis SCDs/Heparin SQ Code Status Full code Admission and Anticipated Discharge Date Admission Date: October 27, 2023 Subjective Patient is seen and examined at bedside Flank pain resolved Offers no new complaints Renal function slowly improving Urine culture growing gram-negative bacilli Denies any nausea, vomiting, chest pain, dyspnea, hematuria, dysuria Review of Systems Review of Systems: All systems reviewed & are unremarkable except as noted in Subjective Physical Exam Physical Exam: Physical Exam: Vitals signs as noted above General Appearance:Moderately built and nourished, no apparent distress Head: normocephalic, Atraumatic Eyes: normal inspection, EOMI Neck: supple, Trachea midline Respiratory/Chest: Normal breath sounds, CTA, No accessory muscle use Cardiovascular: S1, S2, No murmur Abdomen/GI:Soft, Non tender, Bowel sounds present Extremities/Musculoskeletal:normal inspection, no edema Neurologic/Psych:AAOX3, grossly no focal neurological deficits Skin: normal color, warm Results & Data Results & Data Vital Signs (Past 12 Hours) Vital Signs Temp Pulse Pulse Resp BP Pulse Ox O2 Del Method 10/28/23 11:49 36.4 C L 71 16 153/71 H 96 Room Air 10/28/23 07:56 36.3 C L 66 16 137/82 95 Room Air 10/28/23 07:22 63 Laboratory Results Short CBC 10/28/23 Range/Units 08:13 WBC 6.04 (4.8-10.8) K/ul Hgb 11.7 L (12.0-16.0) g/dl Hct 34.8 L (37.0-47.0) % Plt Count 119 L (130-400) K/uL BMP 10/28/23 08:13 Sodium 137 Potassium 4.6 D Chloride 109 H Carbon Dioxide 20 L BUN 50 H Creatinine 2.00 H D Glucose 202 H Calcium 8.2 L Liver Function 10/28/23 Range/Units 08:13 Total Bilirubin 0.4 (0.2-1.0) mg/dl AST 58 H (13-39) U/L ALT 43 (7-52) U/L Alkaline Phosphatase 192 H (34-104) U/L Albumin 3.0 L (3.4-5.0) gm/dl
[2023-10-28] MEDS: HEPARIN SOD 5,000 UNIT/0.5 ML VIAL SQ SCH (20:35)
[2023-10-29 06:36] LABS: Hematocrit (blood only) 34.1 % (37.0-47.0); Hemoglobin 11.5 g/dl (12.0-16.0); Mean Corpuscular Hemoglobin 30.5 pg (25.0-34.0); Mean Corpuscular Hgb Conc 33.7 g/dL (32.0-36.0); Mean Corpuscular Volume 90.5 fL (80.0-100.0); Platelet Count 135 K/uL (130-400); RDW Coefficient of Variation 14.2 % (11.5-14.5); Red Blood Count 3.77 M/uL (4.20-5.40); White Blood Count 10.28 K/ul (4.8-10.8)
[2023-10-29 07:14] LABS: Calcium 8.4 mg/dl (8.6-10.3); Magnesium 1.9 mg/dl (1.7-2.4); Potassium 4.1 mmol/L (3.5-5.1)
[2023-10-29 07:19] LABS: BUN Creatinine Ratio 28.7 (10-20); Creatinine Clr Calc Pharmacy 23.8 ml/min; Est GFR (African American) 32.9 ml/min; Est GFR (Non-African American) 28.4 ml/min
[2023-10-29] MEDS: SODIUM CHLORIDE 0.9% 1,000 ML IV ONE (08:21)
[2023-10-29] MEDS: cefTRIAXone SODIUM 2,000 MG/50 ML BAG IV SCH (11:39)
--- NOTE | 2023-10-29 13:36 | Hospitalist Progress Note ---
Date of Service October 29, 2023 Assessment & Plan (1) RAJESH (acute kidney injury): Plan: 83-year-old female with past medical history significant for type 2 diabetes, hyperlipidemia, hypertension, osteoporosis, history of herpes zoster presents with right flank pain. Patient states she is having right flank pain on and off for last 2 to 3 weeks. But since last Wednesday got severe and seems persistent which prompted her to come to the ER. Patient also having dark urine. Denies any fevers. Normal bowel movements. No chest pain or shortness of breath. No cough. Had headache earlier improved now.. No dizziness. No runny nose or sore throat. Last couple of days appetite is down. Patient somewhat hard of hearing. Hemodynamics are okay. labs showing RAJESH, elevated LFTs. Urinalysis positive. CT abdomen pelvis showing right-sided hydronephrosis secondary to 0.8 cm calculus within the right renal pelvis. RAJESH Likely secondary to obstructive uropathy Cr 2.4>>2.0>1.6 Baseline creatinine 0.8 Hold losartan for now Avoid nephrotoxic agents as able Received IV fluids Monitor renal function Right renal calculus Obstructive uropathy -CT scan showing right-sided hydronephrosis and 0.8 cm calculus of the right renal pelvis --S/P cystoscopy, right retrograde pyelogram and right ureteral stent placement by Dr. Chaney on 10/27/2023 Pain control Appreciate urology input Needs follow-up with urology on discharge for definitive treatment of ureteral stone UTI Urine culture: Pansensitive E. coli Continue IV Rocephin Day#3 transition to oral antibiotics to complete the course Elevated LFTs Total bili 1.3, AST 115, ALT 92, alkaline phos is 246 CT abdomen pelvis gallbladder and bile ducts unremarkable. Liver unremarkable Lyme screen, anaplasma and Babesia smear negative Possible from ongoing infection Monitor LFTs Hypertension hold losartan due to RAJESH hydralazine prn monitor DM II Diet controlled HbA1c 6.9 Continue insulin while hospitalized Monitor BGs Hyperlipidemia on statin Mild elevation of troponin Asymptomatic Likely due to renal insufficiency Patient denies chest pain DVT prophylaxis SCDs/Heparin SQ Code Status Full code Disposition Home Admission and Anticipated Discharge Date Admission Date: October 27, 2023 Subjective Patient is seen and examined at bedside States feeling well today Offers no new complaints Negative for discharge Flank pain resolved Denies any nausea, vomiting, chest pain, dyspnea, hematuria, dysuria Plan to discharge home today Review of Systems Review of Systems: All systems reviewed & are unremarkable except as noted in Subjective Physical Exam Physical Exam: Physical Exam: Vitals signs as noted above General Appearance:Moderately built and nourished, no apparent distress Head: normocephalic, Atraumatic Eyes: normal inspection, EOMI Neck: supple, Trachea midline Respiratory/Chest: Normal breath sounds, CTA, No accessory muscle use Cardiovascular: S1, S2, No murmur Abdomen/GI:Soft, Non tender, Bowel sounds present Extremities/Musculoskeletal:normal inspection, no edema Neurologic/Psych:AAOX3, grossly no focal neurological deficits Skin: normal color, warm Results & Data Results & Data Vital Signs (Past 12 Hours) Vital Signs Temp Pulse Pulse Resp BP BP Pulse Ox 10/29/23 12:00 36.9 C 85 16 162/76 H 94 10/29/23 07:53 37.2 C 81 16 175/93 H 90 10/29/23 07:50 10/29/23 07:19 80 10/29/23 02:50 36.5 C 72 16 166/83 H 96 O2 Del Method 10/29/23 12:00 Room Air 10/29/23 07:53 Room Air 10/29/23 07:50 Room Air 10/29/23 07:19 10/29/23 02:50 Room Air Laboratory Results Short CBC 10/29/23 Range/Units 05:36 WBC 10.28 (4.8-10.8) K/ul Hgb 11.5 L (12.0-16.0) g/dl Hct 34.1 L (37.0-47.0) % Plt Count 135 (130-400) K/uL BMP 10/29/23 05:36 Sodium 140 Potassium 4.1 Chloride 113 H Carbon Dioxide 18 L BUN 47 H Creatinine 1.64 H D Glucose 110 H Calcium 8.4 L
--- NOTE | 2023-10-29 13:47 | Discharge Summary ---
Date of Service October 29, 2023 Admission HPI Per Admitting Provider 83-year-old female with past medical history significant for type 2 diabetes, hyperlipidemia, hypertension, osteoporosis, history of herpes zoster presents with right flank pain. Patient states she is having right flank pain on and off for last 2 to 3 weeks. But since last Wednesday got severe and seems persistent which prompted her to come to the ER. Patient also having dark urine. Denies any fevers. Normal bowel movements. No chest pain or shortness of breath. No cough. Had headache earlier improved now.. No dizziness. No runny nose or sore throat. Last couple of days appetite is down. Patient so mewhat hard of hearing. Hemodynamics are okay. Past med history. As mentioned above past surgical history. Colonoscopy. Exploration of parathyroid glands. Bilateral cataracts. Social history. . No smoking. No alcohol use. No drug use. Family history. Daughter had lung cancer. Father had heart disorder. Admission Exam Per Admitting Provider General- Not in distress Head- atraumatic, erythema/flushing seen on he face. Eyes- PERRL. ENT- oropharynx clear Neck- supple, no JVD. Lungs- clear to auscultation , no wheezing or crackles. Heart- regular rhythm; no murmur, no gallop. Abdomen- normal bowel sounds, soft, nontender, no distension. Extremities- no pretibial edema, no erythema seen Neuro- alert, oriented , hard of hearing.; PERRL, no facial palsy; no dysarthria; moves extremities. Principal Diagnosis Right renal calculus Obstructive uropathy Acute kidney injury Complicated urinary tract infection Discharge Data Allergies Allergy/AdvReac Type Severity Reaction Status Date / Time No Known Allergies Allergy Unverified 10/26/23 21:46 Consultations 10/26/23 23:40 ED Decision to Admit Stat 10/27/23 08:00 Consult Urology Routine Procedures Performed Operation Date: 10/27/23 11:25 Actual Procedures p Cystoscopy, Right Retrograde Pyelogram and Right Ureteral Stent Placement(Right) - Juan Carlos Chaney MD Laboratory Results WBC 10.28 K/ul (4.8-10.8) 10/29/23 05:36 RBC 3.77 M/uL (4.20-5.40) L 10/29/23 05:36 Hgb 11.5 g/dl (12.0-16.0) L 10/29/23 05:36 Hct 34.1 % (37.0-47.0) L 10/29/23 05:36 MCV 90.5 fL (80.0-100.0) 10/29/23 05:36 MCH 30.5 pg (25.0-34.0) 10/29/23 05:36 MCHC 33.7 g/dL (32.0-36.0) 10/29/23 05:36 RDW Std Deviation 47.0 fL (36.4-46.3) H 10/29/23 05:36 RDW Coeff of Berta 14.2 % (11.5-14.5) 10/29/23 05:36 Plt Count 135 K/uL (130-400) 10/29/23 05:36 MPV 12.0 fL (9.4-12.4) 10/29/23 05:36 Immature Gran % (Auto) 0.5 % 10/27/23 06:58 Neut % (Auto) 88.1 % 10/27/23 06:58 Lymph % (Auto) 2.7 % 10/27/23 06:58 [place] % (Auto) 6.4 % 10/27/23 06:58 Eos % (Auto) 2.0 % 10/27/23 06:58 Baso % (Auto) 0.3 % 10/27/23 06:58 Neut # (Auto) 9.37 K/uL (1.40-6.50) H 10/27/23 06:58 Lymph # (Auto) 0.29 K/uL (1.20-3.40) L 10/27/23 06:58 [place] # (Auto) 0.68 K/uL (0.11-0.59) H 10/27/23 06:58 Eos # (Auto) 0.21 K/uL (0.00-0.50) 10/27/23 06:58 Baso # (Auto) 0.03 K/uL (0.00-0.20) 10/27/23 06:58 Immature Gran # (Auto) 0.05 K/uL (0.01-0.20) 10/27/23 06:58 Sodium 140 mmol/L (136-145) 10/29/23 05:36 Potassium 4.1 mmol/L (3.5-5.1) 10/29/23 05:36 Chloride 113 mmol/L (98-107) H 10/29/23 05:36 Carbon Dioxide 18 mmol/L (21-32) L 10/29/23 05:36 Anion Gap 9 (3-11) 10/29/23 05:36 BUN 47 mg/dl (6-23) H 10/29/23 05:36 Creatinine 1.64 mg/dl (0.6-1.2) H D 10/29/23 05:36 Est Cr Clr Drug Dosing 23.8 ml/min 10/29/23 05:36 Est GFR ( Amer) 32.9 ml/min 10/29/23 05:36 Est GFR (Non-Af Amer) 28.4 ml/min 10/29/23 05:36 BUN/Creatinine Ratio 28.7 (10-20) H 10/29/23 05:36 Glucose 110 mg/dl (70-99(Fasting)) H 10/29/23 05:36 POC Glucose 126 mg/dl (70-99) H 10/29/23 12:06 Estimat Average Glucose 151 mg/dl 10/27/23 06:58 Hemoglobin A1c 6.9 % (4.5-5.6) H 10/27/23 06:58 Calcium 8.4 mg/dl (8.6-10.3) L 10/29/23 05:36 Magnesium 1.9 mg/dl (1.7-2.4) 10/29/23 05:36 Total Bilirubin 0.4 mg/dl (0.2-1.0) 10/28/23 08:13 Direct Bilirubin 0.4 mg/dl (0-0.2) H 10/27/23 06:58 AST 58 U/L (13-39) H 10/28/23 08:13 ALT 43 U/L (7-52) 10/28/23 08:13 Alkaline Phosphatase 192 U/L (34-104) H 10/28/23 08:13 Troponin I High Sens 27.3 pg/ml (0-14) H 10/27/23 20:08 Total Protein 6.3 gm/dl (6.0-8.3) 10/28/23 08:13 Albumin 3.0 gm/dl (3.4-5.0) L 10/28/23 08:13 Globulin 3.3 gm/dl (2.5-4.0) 10/28/23 08:13 Albumin/Globulin Ratio 0.9 (0.9-2) 10/28/23 08:13 Lipase 84 U/L (11-82) H 10/26/23 21:45 Urine Color Yellow 10/26/23 21:52 Urine Appearance Turbid (Clear) A 10/26/23 21:52 Urine pH 5.5 (4.5-7.5) 10/26/23 21:52 Ur Specific [place] 1.009 (1.000-1.030) 10/26/23 21:52 Urine Protein 2+ (Negative) H 10/26/23 21:52 Urine Glucose (UA) Negative (Negative) 10/26/23 21:52 Urine Ketones Negative (Negative) 10/26/23 21:52 Urine Blood 2+ (Negative) H 10/26/23 21:52 Urine Nitrite Negative (Negative) 10/26/23 21:52 Urine Bilirubin Negative (Negative) 10/26/23 21:52 Urine Urobilinogen Negative (Negative) 10/26/23 21:52 Ur Leukocyte Esterase 3+ (Negative) H 10/26/23 21:52 Urine WBC (Auto) >50 /hpf (0-5) H 10/26/23 21:52 Urine RBC (Auto) 0-2 /hpf (0-2) 10/26/23 21:52 U Hyaline Cast (Auto) 3-5 /lpf (0-2) H 10/26/23 21:52 U Epithel Cells (Auto) 0-2 /hpf (0-2) 10/26/23 21:52 Urine Bacteria (Auto) 2+ (None Seen) H 10/26/23 21:52 Anaplasma Smear See Comment 10/26/23 21:45 Babesia Smear See Comment 10/26/23 21:45 Lyme Disease Screen Negative (Negative) 10/26/23 21:45 Impressions Abdomen/Pelvis CT 10/26/23 21:30 Exam(s): CT ABDOMEN + PELVIS Without Contrast EXAM: CT Abdomen and Pelvis Without Intravenous Contrast CLINICAL HISTORY: Reason for exam: flank pain. TECHNIQUE: Axial computed tomography images of the abdomen and pelvis without intravenous contrast. CTDI is 17.53 mGy and DLP is 767.65 mGy-cm. Automated exposure control was utilized for the study. A dose lowering technique was utilized adhering to the principles of ALARA. COMPARISON: No relevant prior studies available. FINDINGS: Lung bases: Unremarkable. No mass. No consolidation. Mediastinum: Small esophageal hiatal hernia. ABDOMEN: Liver: Unremarkable. Gallbladder and bile ducts: Unremarkable. No calcified stones. No ductal dilation. Pancreas: Unremarkable. No ductal dilation. Spleen: Unremarkable. No splenomegaly. Adrenals: Mild bilateral adrenal gland thickening. Kidneys and ureters: Mild right hydronephrosis this is likely secondary to a 0.8 cm calculus within the right renal pelvis. Mild periureteral inflammatory change also noted. Nonobstructing left upper and lower pole intrarenal calculi. Nonobstructing right lower pole intrarenal calculus. Stomach and bowel: Diverticulosis without evidence of diverticulitis. No obstruction. PELVIS: Appendix: No findings to suggest acute appendicitis. Bladder: Unremarkable. No stones. Reproductive: Unremarkable as visualized. ABDOMEN and PELVIS: Intraperitoneal space: Unremarkable. No free air. No significant fluid collection. Bones/joints: Multilevel degenerative changes of the lumbar spine with slight anterolisthesis of L4 on L5. No acute fracture. No dislocation. Soft tissues: Unremarkable. Vasculature: Unremarkable. No abdominal aortic aneurysm. Lymph nodes: Unremarkable. No enlarged lymph nodes. IMPRESSION: 1. Right-sided hydronephrosis secondary to a 0.8 cm calculus within the right renal pelvis. 2. Left-sided nephrolithiasis 3. Diverticulosis without evidence of diverticulitis Electronically signed by: Miguel Cox MD 10/26/23 23:05 PM Chest X-Ray 10/26/23 21:39 XR chest 1V portable HISTORY: 83 years-old Female abd pain acute chest and abdominal pain COMPARISON: CT abdomen and pelvis of same day TECHNIQUE: AP view of the chest FINDINGS: Cardiac silhouette is upper limits of normal in size. Mild linear subsegmental bibasilar atelectasis versus scarring. [id number] hiatal hernia. No pneumothorax, pleural effusion, airspace consolidation or pulmonary edema. The bones appear grossly intact. IMPRESSION: 1. No acute process of the chest. 2. Hiatal hernia. ACT 112: Negative or not required by law. The above report was generated using voice recognition software. It may contain grammatical, syntax or spelling errors. Electronically signed by: Naresh Henderson M.D. 10/27/2023 6:42 AM Retrograde Pyelogram 10/27/23 15:30 FL retrograde includes kub CLINICAL HISTORY: RIGHT STENT COMPARISON STUDY: CT of the abdomen and pelvis October 26, 2023. FLUOROSCOPY TIME: 3 seconds. Ka, r: 0.58 mGy FLUOROSCOPIC IMAGES: 2 FINDINGS: Fluoroscopy was provided during right retrograde pyelogram with right ureteral stent placement. Filling defect within the right renal pelvis is likely due to the calculus shown on CT of October 26, 2023. IMPRESSION: Fluoroscopy provided during right retrograde pyelogram with right ureteral stent placement. ACT 112: Negative or not required by law. Electronically signed by: Jonny Wheeler M.D. 10/27/2023 5:07 PM Ordered Studies 10/26/23 21:30 CT abd pelvis wo con Stat 10/27/23 15:30 FL retrograde includes kub Routine Diabetes Follow up Diabetes Follow-up Needed for Newly Diagnosed Diabetes Hospital Course (1) RAJESH (acute kidney injury): 83-year-old female with past medical history significant for type 2 diabetes, hyperlipidemia, hypertension, osteoporosis, history of herpes zoster presents with right flank pain. Patient states she is having right flank pain on and off for last 2 to 3 weeks. But since last Wednesday got severe and seems persistent which prompted her to come to the ER. Patient also having dark urine. Denies any fevers. Normal bowel movements. No chest pain or shortness of breath. No cough. Had headache earlier improved now.. No dizziness. No runny nose or sore throat. Last couple of days appetite is down. Patient so mewhat hard of hearing. Hemodynamics are okay. labs showing RAJESH, elevated LFTs. Urinalysis positive. CT abdomen pelvis showing right-sided hydronephrosis secondary to 0.8 cm calculus within the right renal pelvis. RAJESH Likely secondary to obstructive uropathy Cr 2.4>>2.0>1.6 Baseline creatinine 0.8 Hold losartan for now Avoid nephrotoxic agents as able Received IV fluids Monitor renal function Right renal calculus Obstructive uropathy -CT scan showing right-sided hydronephrosis and 0.8 cm calculus of the right renal pelvis --S/P cystoscopy, right retrograde pyelogram and right ureteral stent placement by Dr. Chaney on 10/27/2023 Pain control Appreciate urology input Needs follow-up with urology on discharge for definitive treatment of ureteral stone Complicated UTI--POA Urine culture: Pansensitive E. coli Continue IV Rocephin Day#3 transition to oral antibiotics to complete the course Elevated LFTs Total bili 1.3, AST 115, ALT 92, alkaline phos is 246 CT abdomen pelvis gallbladder and bile ducts unremarkable. Liver unremarkable Lyme screen, anaplasma and Babesia smear negative Possible from ongoing infection Monitor LFTs Hypertension hold losartan due to RAJESH hydralazine prn monitor DM II Diet controlled HbA1c 6.9 Continue insulin while hospitalized Monitor BGs Hyperlipidemia on statin Mild elevation of troponin Asymptomatic Likely due to renal insufficiency Patient denies chest pain DVT prophylaxis SCDs/Heparin SQ Code Status Full code Disposition Home Total Time Total Time Spent Total Time Spent (In Minutes): 52 minutes Discharge Plan Discharge Items Patient Disposition: Home - Self-Care Reason For Visit: RAJESH, KIDNEY STONE, UTI Discharge Diagnosis: Right renal calculus Obstructive uropathy Acute kidney injury Complicated urinary tract infection Condition on Discharge: Fair Activity: Per Instructions section Exercise/Sports: Gradually increase as tolerated Non-emergency contact: Primary Care Provider and Urologist Call non-emergency contact if: you have any medication questions, your symptoms worsen, your pain is concerning for you and you have a fever Follow-up/Referrals: Haylee Marie CRNP [Nurse Practitioner] - (The Urology office will contact you for a follow up appointment.) Paz Casarez MD [Primary Care Provider] - (Date & Time 11/03/2023 4:00 PM Provider Marilee Nicole MD Department General Internal Medicine [facility] ) Diet: Carb Consistent or DM2 Addtl Attending Provider Instructions: Follow-up with your primary care physician on 11/03/2023 4:00 PM Follow-up with your urologist Haylee JIMENEZ as advised --Complete antibiotic course cefdinir as prescribed. Start taking from 10/30/2023 --Increase oral fluid intake to keep yourself hydrated. Seek immediate medical attention if your symptoms reoccur or worsen Please take all medications as instructed on discharge list below. Please call if you have any questions or problems. You can reach a [facility] hospitalist on duty at [facility] 24 hours a day by calling [phone] [facility] Industrial Maintenance Manager Provider Instructions: Please call the urology office at [phone] with any questions, concerns or need to reschedule appointments for any reason. We are happy to assist you. The urology office will contact you to arrange a follow-up visit. While you have a ureteral stent in place: Some discomfort is normal. Certain movements may trigger pain or a feeling that you need to urinate. You may also feel mild soreness or pressure before or during urination. Your urine may be slightly pink or red. This is due to bleeding caused by minor irritation from the stent. This may happen on and off while you have the stent, it is not harmful and is to be expected. Medication to help minimize discomfort or bladder spasms, or to prevent infection may be prescribed. Take this as directed. Drink plenty of fluids to help flush out your urinary tract. When to call [facility] Urology at [phone]: Your urine contains heavy blood clots or you are unable to urinate You are constantly leaking urine Fever of 101F or higher, chills, nausea, or vomiting Your pain is not relieved with medication The end of the stent comes out of your urethra Pending Studies at Discharge: No Stand-Alone Forms: My [facility], Smoking Cessation Medications and DC Order Prescriptions: New cefdinir 300 mg capsule 300 mg PO DAILY Qty: 7 0RF Rx Instructions: Start taking from 10/30/2023 Continued atorvastatin 40 mg tablet 40 mg PO DAILY aspirin [Aspirin Low-Strength] 81 mg Tablet,Delayed Release (Dr/Ec) 81 mg PO DAILY multivitamin [Multiple Vitamin] Tablet 1 tab PO DAILY Held losartan 25 mg tablet 25 mg PO DAILY Hold Instructions: Resume on 11/01/23. Discharge Orders: Discharge Order (Routine); Ordered 10/29/23 Ordered By: Joey Orozco Admission Data Admit Date/Time: 10/27/23 01:02 Attending Provider: Joey Orozco Admit Provider: Rickie Leyva Primary Care Provider: Paz Casarez Other Providers: Rickie Leyva; Wilmer Tate; Vijay Anderson; Ramirez Foster.; Abbi Delacruz.; Naveen Christensen.; Shagufta Pressley; Mimi Suh; Juan Carlos Chaney; Haylee Marie.; Raymon Lee; Joaquín Valverde; Vijay Perkins.
[2023-10-30 04:39] LABS: Babesia microti DNA Not Detected (Not Detected)
== END 2023-10-29 15:02 | disposition home or self-care (01) | DRG 661 ==
LOC: ED 21:15 → SUATTDRO 10-27 01:02 → 2W 10-27 01:02

== ENCOUNTER 2024-09-29 15:21 | Inpatient (IN) ==
--- NOTE | 2024-09-29 15:34 | Emergency Department Note ---
Impression & Plan Severe sepsis, Elevated lactic acid level, Elevated procalcitonin, Acute hypoxemic respiratory failure, Hypomagnesemia, Elevated troponin, RAJESH (acute kidney injury) ED Provider Note HISTORY OF PRESENT ILLNESS: Patient is an 84-year-old female presenting with vomiting and lethargy. Patient was just discharged from the hospital at 1245 after undergoing a lithotripsy. Patient reports that she got home and started to have significant chills and had a fever up to 101. She was lethargic for family and they called 911. Patient was given 4 mg IV Zofran prehospital and a gram of Tylenol with EMS. Patient reportedly had a temperature of 100.4 with EMS prehospital. Patient reports she has vomited 6 times since being discharged. She denies any chest pain or shortness of breath. Denies any abdominal pain. Patient reports that she was on antibiotics for the last week prior to having the lithotripsy done. ROS: as above PHYSICAL EXAM: Constitutional: Patient appears in no acute distress. HENT: Head: Normocephalic and atraumatic. Eyes: EOMI, PERRL Mouth/Throat: Mucous membranes moist. Neck: Trachea midline. Neck supple. Cardiovascular: Tachycardic with regular rhythm. No murmurs, rubs or gallops. Intact distal pulses. Pulmonary/Chest: No respiratory distress. Breath sounds clear and equal bilaterally. No wheezes or rales. Abdominal: Abdomen soft, no tenderness, rebound or guarding. Musculoskeletal: No edema, tenderness or deformity noted. Skin: Warm and dry. No rash, erythema, pallor or cyanosis Psychiatric: Appropriate mood and affect for situation. Neurological: Alert and keenly responsive. CN II-XII grossly intact, moving all extremities equally and fully. MDM: - Vitals signs showed hypertension, tachycardia, tachypnea and hypoxia. Patient was placed on 3 L nasal cannula. Sepsis protocol was ordered. - Chronic conditions affecting care: Nephrolithiasis; HTN; HLD - Differential diagnoses include, but are not limited to: UTI; bacteremia; pneumonia; viral syndrome; electrolyte abnormality; ACS - Order placed for continuous cardiac monitoring. At this time, monitor showed rate of 110 bpm with normal sinus rhythm, per my interpretation. - External medical records reviewed. Urology history and physical exam note from today was reviewed. Patient was having a cystoscopy, left retrograde pyelogram and left ureteroscopy with laser lithotripsy for history of nephrolithiasis. - EKG image interpreted by myself showed normal sinus rhythm. Rate tachycardic at 115 bpm. QT 312. No acute ischemic changes. - Laboratory workup interpreted by myself showed leukopenia (WBC 3.54); elevated INR (1.3); stable electrolytes other than hypomagnesemia (Mg 1.6); RAJESH (Cr 1.24); elevated lactate (6.0); elevated troponin (27.8); elevated procalcitonin - CXR image reviewed by myself is negative for pneumonia, per my interpretation. Radiology notes suspected pulmonary vascular congestion. - Blood cultures obtained - Urine ordered - Patient given 1.5L NS in ER. Patient sepsis fluid volume calculation based on ideal body weight is 1500 cc. - Patient given IV zosyn empirically. - Given 1g IV magnesium for electrolyte replacement - Discussion was had with supportive employment case manager about patient's case and need for admission - Hospitalist, Dr. Saez, consulted for admission - Patient admitted [facility] for further evaluation and management. I have personally spent 42 minutes of critical care time in the direct management of this patient. This includes bedside care, interpretation of diagnostic studies, and testing, discussion with consultants, patient, and family members, and other required patient management activities. This 42 minutes is in excess of all separately billable procedures. ASSESSMENT AND PLAN: Diagnosis: severe sepsis; elevated lactic acid level; elevated procalcitonin; acute hypoxic respiratory failure; hypomagnesemia; elevated troponin; RAJESH Plan: admit Past Med/Surg History Problem List (Updated 09/29/24 @ 17:29 by Gillian Manzanares MD) RAJESH (acute kidney injury) (Acute) Elevated troponin (Acute) Hypomagnesemia (Acute) Acute hypoxemic respiratory failure (Acute) Elevated procalcitonin (Acute) Elevated lactic acid level (Acute) Severe sepsis (Acute) Nephrolithiasis Ureteral stone (Acute) Medical History (Updated 09/29/24 @ 17:29 by Gillian Manzanares MD) Kidney infection current abx tx/started abx 09/20/24 - pt reports some improvement with symptoms. urine upcoming 09/26/24. 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 Hx of decompression of ulnar nerve right side History of open reduction and internal fixation (ORIF) procedure left wrist - 2 plates Hx of colonoscopy with polypectomy S/P cystoscopy with ureteral stent placement (11/2023) x2 Hx of appendectomy (1969) History of parathyroid surgery (2009) removal Hx of cataract surgery (2018) b/l Social History Smoking Status: Never smoker Second Hand Exposure: No; Do You Dip or Chew Tobacco: No; Hx Alcohol Use: No Hx Substance Use: No Preferred Language: Yakut Communication Ability: Effective Pneumatic Jacketer Required: No Beliefs That Will Affect Care: None Current Living Situation: Spouse Feels Safe at Home: Yes Assistive Devices: Other Allergies Allergies Allergy/AdvReac Type Severity Reaction Status Date / Time No Known Allergies Allergy Verified 09/29/24 07:55 Home Meds Home Medications Medication Instructions Recorded Confirmed aspirin 81 mg tablet,delayed 81 mg PO Q OTHER DAY 10/26/23 09/29/24 release atorvastatin 40 mg tablet 40 mg PO QAM 10/26/23 09/29/24 losartan 25 mg tablet 50 mg PO QAM 10/26/23 09/29/24 multivitamin 1 tab PO QAM 10/26/23 09/29/24 losartan 25 mg tablet 25 mg PO QPM 09/22/24 09/29/24 Previous Rx's Medication Instructions Recorded cephalexin 500 mg capsule 500 mg PO BID #20 caps 09/20/24 sulfamethoxazole 800 1 tab PO ONCE 1 day #1 tab 09/29/24 mg-trimethoprim 160 mg tablet (Bactrim DS) Results & Data (ED) Vital Signs Vital Signs - 24 hr 09/29/24 15:25 09/29/24 15:25 09/29/24 15:38 Temperature 37.5 C Temperature Source Oral Pulse Rate 115 H 107 H Pulse Rate [Apical] Respiratory Rate 27 H Respiratory Effort / Characteristics Non-Labored Spontaneous Respiratory Depth Normal Respiratory Pattern Regular Blood Pressure 180/111 H Blood Pressure [Right Arm] Blood Pressure Mean 134 Blood Pressure Mean [Right Arm] Pulse Oximetry 91 87 L 93 Oxygen Delivery Method Room Air Room Air Nasal Cannula Oxygen Flow Rate 3 Sepsis Recent Fever Within 48 Hours Yes Sepsis New/Unexplained Change in Mental Status No Sepsis Action Taken by Nursing Physician Notified Oxygen Flow Rate - Titration 3 Pulse Oximetry Post Tiitration 94 09/29/24 15:41 09/29/24 16:00 Temperature Temperature Source Pulse Rate 106 H Pulse Rate [Apical] 105 H Respiratory Rate 24 Respiratory Effort / Characteristics Non-Labored Spontaneous Respiratory Depth Normal Respiratory Pattern Regular Blood Pressure Blood Pressure [Right Arm] 131/75 Blood Pressure Mean Blood Pressure Mean [Right Arm] 93 Pulse Oximetry 93 Oxygen Delivery Method Nasal Cannula Oxygen Flow Rate 3 Sepsis Recent Fever Within 48 Hours Sepsis New/Unexplained Change in Mental Status Sepsis Action Taken by Nursing Oxygen Flow Rate - Titration Pulse Oximetry Post Tiitration Laboratory Data 09/29/24 15:30 09/29/24 15:30 Lab Results 09/29/24 09/29/24 Range/Units 15:30 17:12 WBC 3.54 L (4.8-10.8) K/ul RBC 4.78 (4.20-5.40) M/uL Hgb 14.8 (12.0-16.0) g/dl Hct 45.3 (37.0-47.0) % MCV 94.8 (80.0-100.0) fL MCH 31.0 (25.0-34.0) pg MCHC 32.7 (32.0-36.0) g/dL RDW Std Deviation 46.1 (36.4-46.3) fL RDW Coeff of Berta 13.3 (11.5-14.5) % Plt Count 100 L (130-400) K/uL MPV 9.9 (9.4-12.4) fL Immature Gran % (Auto) 3.4 % Neut % (Auto) 91.5 % Lymph % (Auto) 4.2 % Rapides % (Auto) 0.3 % Eos % (Auto) 0.3 % Baso % (Auto) 0.3 % Neut # (Auto) 3.24 (1.40-6.50) K/uL Lymph # (Auto) 0.15 L (1.20-3.40) K/uL [place]ides # (Auto) 0.01 L (0.11-0.59) K/uL Eos # (Auto) 0.01 (0.00-0.50) K/uL Baso # (Auto) 0.01 (0.00-0.20) K/uL Immature Gran # (Auto) 0.12 (0.01-0.20) K/uL Toxic Vacuolation 3+ PT 13.4 H (9.0-12.0) Seconds INR 1.3 H (0.9-1.1) APTT 30 (21-31) Seconds PTT Ratio 1.1 Sodium 143 (136-145) mmol/L Potassium 4.1 (3.5-5.1) mmol/L Chloride 106 (98-107) mmol/L Carbon Dioxide 23 (21-32) mmol/L Anion Gap 14 H (3-11) BUN 21 (6-23) mg/dl Creatinine 1.24 H (0.6-1.2) mg/dl Est Cr Clr Drug Dosing 30.3 ml/min eGFR 42.65 BUN/Creatinine Ratio 16.9 (10-20) Glucose 125 H (70-99(Fasting)) mg/dl Lactate 6.0 H* 6.2 H* (0.4-2.0) mmol/L Calcium 8.8 (8.6-10.3) mg/dl Magnesium 1.6 L (1.7-2.4) mg/dl Total Bilirubin 1.2 H (0.2-1.0) mg/dl AST 26 (13-39) U/L ALT 17 (7-52) U/L Alkaline Phosphatase 111 H (34-104) U/L Troponin I High Sens 27.8 H (0-14) pg/ml Total Protein 7.1 (6.0-8.3) gm/dl Albumin 4.0 (3.4-5.0) gm/dl Globulin 3.1 (2.5-4.0) gm/dl Albumin/Globulin Ratio 1.3 (0.9-2) Procalcitonin 7.69 H (0-0.5) ng/ml Administered Medications Discontinued Medications Sodium Chloride (Nss) 1,000 mls @ 999 mls/hr IV .Q1H1M ONE Stop: 09/29/24 16:54 Last Infusion: 09/29/24 17:19 Dose: Infused Documented By: Admin: 09/29/24 16:13 Dose: 999 mls/hr Documented By: SRIDHAR Sodium Chloride (Nss) 500 mls @ 999 mls/hr IV .Q31M ONE Stop: 09/29/24 16:24 Last Admin: 09/29/24 17:18 Dose: 999 mls/hr Documented By: SRIDHAR Piperacillin Sod/Tazobactam Sod (Zosyn) 4.5 gm in 100 mls @ 200 mls/hr IV NOW ONE; Protocol Stop: 09/29/24 16:23 Last Infusion: 09/29/24 16:29 Dose: Infused Documented By: Admin: 09/29/24 16:13 Dose: 200 mls/hr Documented By: SRIDHAR Magnesium Sulfate/Dextrose (Magnesium Sulfate / D5w) 1 gm in 100 mls @ 100 mls/hr IV NOW STA Stop: 09/29/24 17:19 Last Admin: 09/29/24 16:29 Dose: 100 mls/hr Documented By: SRIDHAR Imaging Data Radiologist's Impression: Chest X-Ray 09/29/24 15:32 Clinical History: Sepsis Technique: A frontal view of the chest was obtained Comparison is made to the prior examination dated 10/26/2023 Findings: There are no definite pulmonary infiltrates. The heart size is within normal limits. No pleural effusion or pneumothorax is seen. There is suspected mild pulmonary vascular congestion No fracture is noted. There is scoliosis Impression: Suspected mild pulmonary vascular congestion Electronically signed by Bill Guallpa 09-29-2024 4:19 PM Discharge Plan Visit Data Chief Complaint: Lethargic Stated Complaint: Lethargic ED Provider: Gillian Manzanares Discharge Problem: Severe sepsis, Elevated lactic acid level, Elevated procalcitonin, Acute hypoxemic respiratory failure, Hypomagnesemia, Elevated troponin, RAJESH (acute kidney injury) Condition: Serious Forms Stand Alone Forms: My [facility] Prescriptions Prescriptions: No Action cephalexin 500 mg capsule 500 mg PO BID Qty: 20 0RF atorvastatin 40 mg tablet 40 mg PO QAM losartan 25 mg tablet 50 mg PO QAM Hold Instructions: Resume on 11/01/23. aspirin 81 mg Tablet,Delayed Release (Dr/Ec) 81 mg PO Q OTHER DAY multivitamin Tablet 1 tab PO QAM losartan 25 mg Tablet 25 mg PO QPM sulfamethoxazole-trimethoprim [Bactrim DS] 800-160 mg tablet 1 tab PO ONCE 1 Days Qty: 1 0RF Referrals Referrals: Paz Casarez MD [Primary Care Provider] -
[2024-09-29 15:58] LABS: Hematocrit (blood only) 45.3 % (37.0-47.0); Hemoglobin 14.8 g/dl (12.0-16.0); Mean Corpuscular Hgb Conc 32.7 g/dL (32.0-36.0); Mean Corpuscular Volume 94.8 fL (80.0-100.0); Mean Platelet Volume 9.9 fL (9.4-12.4); Platelet Count 100 K/uL (130-400); RDW Coefficient of Variation 13.3 % (11.5-14.5); RDW Standard Deviation 46.1 fL (36.4-46.3); Red Blood Count 4.78 M/uL (4.20-5.40); White Blood Count 3.54 K/ul (4.8-10.8)
[2024-09-29 16:07] LABS: Albumin Globulin Ratio 1.3 (0.9-2); BUN Creatinine Ratio 16.9 (10-20); Bilirubin,Total 1.2 mg/dl (0.2-1.0); Calcium 8.8 mg/dl (8.6-10.3); Creatinine Clr Calc Pharmacy 30.3 ml/min; Globulin 3.1 gm/dl (2.5-4.0); Magnesium 1.6 mg/dl (1.7-2.4); Potassium 4.1 mmol/L (3.5-5.1); Total Protein 7.1 gm/dl (6.0-8.3)
[2024-09-29 16:10] LABS: INR 1.3 (0.9-1.1); Partial Thromboplastin Ratio 1.1; Partial Thromboplastin Time 30 Seconds (21-31); Prothrombin Time 13.4 Seconds (9.0-12.0)
[2024-09-29 16:11] LABS: Basophils # (auto) 0.01 K/uL (0.00-0.20); Basophils % (auto) 0.3 %; Eosinophils # (auto) 0.01 K/uL (0.00-0.50); Eosinophils % (auto) 0.3 %; Immature Granulocytes # (auto) 0.12 K/uL (0.01-0.20); Immature Granulocytes % (auto) 3.4 %; Lymphocytes # (auto) 0.15 K/uL (1.20-3.40); Lymphocytes % (auto) 4.2 %; Monocytes # (auto) 0.01 K/uL (0.11-0.59); Monocytes % (auto) 0.3 %; Neutrophils # (auto) 3.24 K/uL (1.40-6.50); Neutrophils % (auto) 91.5 %; Toxic Vacuolation 3+
[2024-09-29 16:13] LABS: Troponin I High Sensitivity 27.8 pg/ml (0-14)
[2024-09-29] MEDS: SODIUM CHLORIDE 0.9% 1,000 ML IV ONE (16:13)
[2024-09-29] MEDS: PIPERACILLIN/TAZOBACTAM 4.5 GM/100 ML BAG IV ONE (16:13)
--- NOTE | 2024-09-29 16:19 | XRay Report ---
Clinical History: Sepsis Technique: A frontal view of the chest was obtained Comparison is made to the prior examination dated 10/26/2023 Findings: There are no definite pulmonary infiltrates. The heart size is within normal limits. No pleural effusion or pneumothorax is seen. There is suspected mild pulmonary vascular congestion No fracture is noted. There is scoliosis Impression: Suspected mild pulmonary vascular congestion Electronically signed by Bill Guallpa 09-29-2024 4:19 PM
[2024-09-29] MEDS: MAGNESIUM SULFATE / D5W 1 GM/100 ML BAG IV STA (16:29)
[2024-09-29] MEDS ORDERED: POLYETHYLENE (MIRALAX) 17 GM PACK PO PRN (17:16)
[2024-09-29] MEDS: SODIUM CHLORIDE 0.9% 500 ML IV ONE (17:18)
[2024-09-29] MEDS ORDERED: VANCOMYCIN CONSULT ACTIVE PRN (17:22)
[2024-09-29] MEDS: OPTIRAY 320 100ml IV ONE (17:51)
--- NOTE | 2024-09-29 18:06 | CT Scan Report ---
CT chest without contrast History: Sepsis Comparison: None Technique: Helical CT imaging of the chest performed without IV contrast Dose reduction techniques were achieved by using automatic exposure control and/or adjustment of mA and/or kV according to patient size and/or use of iterative reconstruction technique. Findings: No focal consolidation. No pleural effusion. No pneumothorax. Heart size is normal. Moderate coronary calcification. The thoracic aorta is normal in size. The pulmonary artery is normal in size. No significant pericardial effusion. No suspicious lymphadenopathy in the chest. The central airway is clear. Limited visualized upper abdomen. Small sliding hiatal hernia. No acute bony abnormalities. Impression: Normal CT chest. No evidence for an infectious process in the lungs. Electronically signed by Ramirez Marie 09-29-2024 6:05 PM
[2024-09-29] MEDS: ACETAMINOPHEN 500 MG TAB PO PRN (18:16)
--- NOTE | 2024-09-29 18:16 | CT Scan Report ---
EXAMINATION: CT urogram of the abdomen and pelvis performed before and after the administration of IV contrast TECHNIQUE: Helical CT images from the lung bases through the symphysis pubis were obtained with and without contrast. Coronal and sagittal reformatted images were generated at a workstation for further assessment. Dose reduction techniques were achieved by using automatic exposure control and/or adjustment of mA and/or kV according to patient size and/or use of iterative reconstruction technique. COMPARISON: 04/25/2024 HISTORY: Renal stones FINDINGS: Lower chest: No acute abnormality. Liver: Unremarkable. No focal lesions are seen. Gallbladder and biliary tree: No calcified gallstones. Normal caliber wall. No intra- or extrahepatic biliary ductal dilation. There is pericholecystic fluid. Pancreas: Unremarkable, no focal lesions. Spleen: Unremarkable. Adrenals: Unremarkable. Kidneys and ureters: Nonobstructive stones are seen in the bilateral kidneys, not significantly changed. There are coarsened, prominent stones throughout the inferior aspect of the left kidney, which are nonobstructing. No evidence of hydronephrosis. There is a left nephroureteral stent placed. There is contrast excretion into the renal collecting systems, and into the ureters. No renal masses. There is a duplicated right renal collecting system, and 2 ureters. Bladder: Unremarkable. No suspicious filling defects. Reproductive organs: Unremarkable. No adnexal mass. Bowel: A hiatal hernia is seen. Diverticulosis is seen without diverticulitis. Lymph nodes Retroperitoneal: Subcentimeter lymph nodes are noted. Pelvic: Unremarkable. Mesenteric: Unremarkable. Peritoneum: Normal. Vessels: Atherosclerotic calcifications are seen. Abdominal wall: Unremarkable. Bones: Degenerative changes are seen with grade 1 anterolisthesis of L4-L5. IMPRESSION: Left nephroureteral stent in position. No hydronephrosis or hydroureter. Duplicated right renal collecting system. Nonobstructive stones are seen in the bilateral kidneys, are similar to prior. Electronically signed by Ramirez Marie 09-29-2024 6:16 PM
[2024-09-29] MEDS: LACTATED RINGER'S 1,000 ML IV SCH (18:17)
[2024-09-29 18:24] LABS: Appearance Urine Clear (Clear); Bacteria Urine Automated None Seen (None Seen); Bilirubin Urine Negative (Negative); Blood Urine 3+ (Negative); Cast Urine Automated 0-2 /lpf (0-2); Color Urine Yellow; Epithelial Cell Urine Auto 0-2 /hpf (0-2); Glucose Urine UA Negative (Negative); Ketones Urine Negative (Negative); Leukocyte Esterase Urine 1+ (Negative); Nitrite Urine Negative (Negative); Protein Urine 2+ (Negative); RBC Urine Automated >20 /hpf (0-2); Specific Gravity Urine 1.014 (1.000-1.030); Urobilinogen Urine Negative (Negative); pH Urine 5.5 (4.5-7.5)
--- NOTE | 2024-09-29 18:37 | History & Physical Report ---
Date of Service September 29, 2024 Assessment & Plan (1) Septic shock: Plan: -shock as evidenced by lactic acidosis, needing levophed -CT abdomen pelvis and CT chest ordered by this provider unrevealing for surgical complication such as hydroureter -likely 2/2 instrumentation from urologic procedure, imaging unrevealing of other sources at this time, far less likely meningitis or other process -s/p 3L of fluid in ED (personally checked at bedside), MAP below 60 in room -discussed code status at length, patient DNRDNI but ok with pressors Plan: -goal MAP 65 -2 peripheral IVs placed -if go above 0.1 of levophed will start vasopressin -continue fluid resuscitiation -admit to ICU -urology consult, appreciate recs -broad spectrum abx with vanc/zosyn, blood cx x2, UA ordered by this provider (2) RAJESH (acute kidney injury): Plan: -in setting of severe sepsis/septic shock -s/p urologic instrumentation Plan: -trend creatinine (3) Acute hypoxemic respiratory failure: Plan: -unclear etiology, likely 2/2 poor respiratory effort vs. less likely pulmonary edema given imaging findings Plan: -start IS -goal oxygen saturation 90% (4) S/P cystoscopy: Plan: -notified urology of patient admission post procedure Plan I spent a total of 80 minutes in direct patient care, including [id number] time with the patient and/or family, reviewing medical records, ordering and reviewing diagnostic tests, and coordinating care with other healthcare providers. This time includes: history taking, physical examination, medical decision making, counseling, ECG interpretation, imaging interpretation, lab interpretation, orders, and education, excluding time spent in the performance of separately billed services. History of Present Illness Chief Complaint: -fatigue, weakness, fevers Primary Care Provider: Paz Casarez MD 84 yo female with pmhx of recent urologic procedure (stent placement for stone, left stent, discharged today 09/29/2024), CKD stage 3a, osteoporosis, hx of herpes zoster, HLD who presents for fatigue, weakness and fevers at home post discharge. Had procedure for stent exchange, cystoscopy and laser lithotripsy on 09/29/2024, discharged home post procedure. Patient seen and examined at bedside. present. Patient not feeling well today at all. Went home post procedure, got profound fatigue, weakness, and fevers, chills as well, came to hospital. Did not feel well post procedure but went home anyways. states she looks ill. Does feel slightly SOB as well. No chest pain, nausea or vomiting at this time. Does have some lower abdominal pain as well. Discussed code status with patient, she would like to be DNRDNI at this time. Allergies Allergy/AdvReac Type Severity Reaction Status Date / Time No Known Allergies Allergy Verified 09/29/24 18:27 Home Medications Medication Instructions Recorded Confirmed Type multivitamin 1 tab PO QAM 10/26/23 09/29/24 History cephalexin 500 mg capsule 500 mg PO BID #20 caps 09/20/24 09/29/24 Rx losartan 50 mg tablet 75 mg PO QAM 09/29/24 09/29/24 History Past Med/Surg History Problem List (Updated 09/29/24 @ 19:12 by Edward Saez MD) Septic shock S/P cystoscopy RAJESH (acute kidney injury) (Acute) Elevated troponin (Acute) Hypomagnesemia (Acute) Acute hypoxemic respiratory failure (Acute) Elevated procalcitonin (Acute) Elevated lactic acid level (Acute) Severe sepsis (Acute) Nephrolithiasis Ureteral stone (Acute) Medical History Kidney infection current abx tx/started abx 09/20/24 - pt reports some improvement with symptoms. urine upcoming 09/26/24. 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 Hx of decompression of ulnar nerve right side History of open reduction and internal fixation (ORIF) procedure left wrist - 2 plates Hx of colonoscopy with polypectomy S/P cystoscopy with ureteral stent placement (11/2023) x2 Hx of appendectomy (1969) History of parathyroid surgery (2009) removal Hx of cataract surgery (2018) b/l Social History Smoking Status: Never smoker Second Hand Exposure: No; Do You Dip or Chew Tobacco: No; Hx Alcohol Use: No Hx Substance Use: No Preferred Language: Pashto Communication Ability: Effective It Engineer Required: No Beliefs That Will Affect Care: None Current Living Situation: Spouse Feels Safe at Home: Yes Assistive Devices: Other Review of Systems Review of Systems: CONSTITUTIONAL: fatigue, fevers, chills EYES: Patient denies any visual symptoms. EARS, NOSE, AND THROAT: No difficulties with hearing. No symptoms of rhinitis or sore throat. CARDIOVASCULAR: Patient denies chest pains, palpitations, orthopnea and paroxysmal nocturnal dyspnea. RESPIRATORY: No dyspnea on exertion, no wheezing or cough. GI: lower abdominal pain : No urinary hesitancy or dribbling. No nocturia or urinary frequency. No abnormal urethral discharge. MUSCULOSKELETAL: No myalgias or arthralgias. NEUROLOGIC: No chronic headaches, no seizures. Patient denies numbness, tingling or weakness. PSYCHIATRIC: Patient denies problems with mood disturbance. No problems with anxiety. ENDOCRINE: No excessive urination or excessive thirst. DERMATOLOGIC: Patient denies any rashes or skin changes. Physical Exam Physical Exam: Gen: A&O 3 NAD, diaphoretic HEENT: NCAT, EOMI, not icteric. External ears normal. No rhinorrhea. Moist mucous membranes. Neck: Supple, full range of motion, no observable masses, No meningeal sign. Lungs: No Respiratory distress. CV: tachycardic, regular rhythm Abdomen: slight tenderness to palpation in lower abdomen MSK: No joint swelling, no redness. Skin: No rashes, petechiae, lesions. Normal color per patient. Neuro: Normal Gait, Grossly intact. Psych: Appropriate for situation. Results & Data Results & Data Vital Signs (Past 12 Hours) Vital Signs Temp Pulse Pulse Resp BP BP Pulse Ox 09/29/24 16:00 105 H 24 131/75 93 09/29/24 15:41 106 H 09/29/24 15:38 107 H 93 09/29/24 15:25 87 L 09/29/24 15:25 37.5 C 115 H 27 H 180/111 H 91 O2 Del Method O2 Flow Rate 09/29/24 16:00 Nasal Cannula 3 09/29/24 15:41 09/29/24 15:38 Nasal Cannula 3 09/29/24 15:25 Room Air 09/29/24 15:25 Room Air Laboratory Results -personally reviewed, elevated lactic acid of 6 consistent with profound sepsis along with tachycardia/tachypnea/fever with source being instrumentation, procal of 7 suggestive of florid bacteremia, hypotension in setting of possible shock Diagnostic Findings Chest X-Ray 09/29/24 15:32 Clinical History: Sepsis Technique: A frontal view of the chest was obtained Comparison is made to the prior examination dated 10/26/2023 Findings: There are no definite pulmonary infiltrates. The heart size is within normal limits. No pleural effusion or pneumothorax is seen. There is suspected mild pulmonary vascular congestion No fracture is noted. There is scoliosis Impression: Suspected mild pulmonary vascular congestion Electronically signed by Bill Guallpa 09-29-2024 4:19 PM Abdomen/Pelvis CT 09/29/24 17:22 EXAMINATION: CT urogram of the abdomen and pelvis performed before and after the administration of IV contrast TECHNIQUE: Helical CT images from the lung bases through the symphysis pubis were obtained with and without contrast. Coronal and sagittal reformatted images were generated at a workstation for further assessment. Dose reduction techniques were achieved by using automatic exposure control and/or adjustment of mA and/or kV according to patient size and/or use of iterative reconstruction technique. COMPARISON: 04/25/2024 HISTORY: Renal stones FINDINGS: Lower chest: No acute abnormality. Liver: Unremarkable. No focal lesions are seen. Gallbladder and biliary tree: No calcified gallstones. Normal caliber wall. No intra- or extrahepatic biliary ductal dilation. There is pericholecystic fluid. Pancreas: Unremarkable, no focal lesions. Spleen: Unremarkable. Adrenals: Unremarkable. Kidneys and ureters: Nonobstructive stones are seen in the bilateral kidneys, not significantly changed. There are coarsened, prominent stones throughout the inferior aspect of the left kidney, which are nonobstructing. No evidence of hydronephrosis. There is a left nephroureteral stent placed. There is contrast excretion into the renal collecting systems, and into the ureters. No renal masses. There is a duplicated right renal collecting system, and 2 ureters. Bladder: Unremarkable. No suspicious filling defects. Reproductive organs: Unremarkable. No adnexal mass. Bowel: A hiatal hernia is seen. Diverticulosis is seen without diverticulitis. Lymph nodes Retroperitoneal: Subcentimeter lymph nodes are noted. Pelvic: Unremarkable. Mesenteric: Unremarkable. Peritoneum: Normal. Vessels: Atherosclerotic calcifications are seen. Abdominal wall: Unremarkable. Bones: Degenerative changes are seen with grade 1 anterolisthesis of L4-L5. IMPRESSION: Left nephroureteral stent in position. No hydronephrosis or hydroureter. Duplicated right renal collecting system. Nonobstructive stones are seen in the bilateral kidneys, are similar to prior. Electronically signed by Ramirez Marie 09-29-2024 6:[address] 09/29/24 17:22 CT chest without contrast History: Sepsis Comparison: None Technique: Helical CT imaging of the chest performed without IV contrast Dose reduction techniques were achieved by using automatic exposure control and/or adjustment of mA and/or kV according to patient size and/or use of iterative reconstruction technique. Findings: No focal consolidation. No pleural effusion. No pneumothorax. Heart size is normal. Moderate coronary calcification. The thoracic aorta is normal in size. The pulmonary artery is normal in size. No significant pericardial effusion. No suspicious lymphadenopathy in the chest. The central airway is clear. Limited visualized upper abdomen. Small sliding hiatal hernia. No acute bony abnormalities. Impression: Normal CT chest. No evidence for an infectious process in the lungs. Electronically signed by Ramirez Marei 09-29-2024 6:05 PM -personally reviewed, CT chest unremarkable for acute findings (maybe some pulmonary congestion), CT abdomen/pelvis with stent placement and without evidence of post operative surgical complications such as nicked ureter Medications Administered Acetaminophen (Acetaminophen 500 Mg Tab) 1,000 mg PO Q6 PRN PRN Reason: pain or fever over 38.8 Stop: 10/29/24 17:15 Last Admin: 09/29/24 18:16 Dose: 1,000 mg Documented By: SRIDHAR Lactated Ringer's (Lr) 1,000 mls @ 80 mls/hr IV .[id number] NAVJOT Stop: 10/03/24 09:00 Last Admin: 09/29/24 18:17 Dose: 80 mls/hr Documented By: SRIDHAR Code Status & VTE Plan Code Status -DNRDNI VTE Prophylaxis Plan VTE Prophylaxis will be ordered: Yes
[2024-09-29] MEDS ORDERED: STAT IV Infusion **Titration per Protocol STA ×2 (19:02→21:31)
[2024-09-29] MEDS: VANCOMYCIN HCL 1,500 MG in SODIUM CHLORIDE 0.9% 500 ML IV ONE (19:09)
[2024-09-29] MEDS: NOREPINEPHRINE/D5W 4 MG/250 ML PLCT IV SCH (19:09)
--- NOTE | 2024-09-29 19:48 | Critical Care Consultation ---
Date of Consultation September 29, 2024 Assessment & Plan (1) Septic shock: (2) RAJESH (acute kidney injury): (3) Elevated lactic acid level: (4) Nephrolithiasis: Plan Reason Critically Ill: 1. Septic shock 2. Urinary tract infection, complicated, related to recent instrumentation of urinary tract 3. Nephrolithiasis s/p lithotripsy 4. 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 HAGMA 2/2 lactic acidosis 6. Mildly increased bilirubin and alkaline phosphatase without RUQ pain 7. RAJESH on CKDIII, prerenal Neuro - [facility] ICU: Negative RASS GOAL 0 APAP PRN pain/fever, low-dose Dilaudid PRN severe/breakthrough pain Cardiac - Hold Losartan, continue statin Continue norepinephrine for MAP goal > 65mmHg LR at 100cc/hr TTE pending Respiratory - No acute concerns SpO2 > 92% IS/Flutter HOB 30 GI - Diet: CLD, may advance as tolerated SUP: N/A Bowel regimen: Miralax Repeat LFTs in AM, low threshold for RUQ US RENAL/LYTES - Replete electrolytes as indicated Bladder scan and straight cath PRN Maintain net even to net negative ENDO - BG 140-180 per SCCM guidelines ISS if needed while inpatient HEME - No acute concerns ID - Received empiric Zosyn/Vancomycin, can likely de-escalate to single agent regimen via cephalosporin in AM based on recent culture data BC x2 pending, UCx pending, procalcitonin elevated, MRSA nares pending LINES/TUBES/DRAINS - PIV x2 DVT PROPHYLAXIS - Enoxaparin in AM I have personally spent 35 minutes of critical care time in the direct management of this patient. This is a life/limb threatening event. This includes time spent evaluating patient, direct bedside care, chart review, placing orders, interpretation of diagnostic studies, discussion with consultants, patient, and family members, as well as other required patient management activities. This time is exclusive of all separately billable procedures, and teaching time and separate from and in addition to any other critical care service time. Thank you for allowing us to participate in the care of this patient. Please refer to my attending physician's documentation for any further recommendations. History of Present Illness Reason for Consultation: Septic shock Requesting Physician: Se Attending Physician: Se History of Present Illness Ms. Jennifer Buckley is a pleasant 84YOF with a history of hypertension, hyperlipidemia, nephrolithiasis who presented to [facility] ED on the afternoon of 09/29/2024 due to low back pain, fever/chills, vomiting, and lethargy. Patient was discharged early this afternoon following a lithotripsy with dilation of L ureteral stricture and stent exchange. Procedure was attempted in August 2024 but lithotripsy was aborted at that time due to mucosal splitting. On arrival to ED, patient was tachycardic, normotensive. During resuscitation patient became hypotensive despite 3L IVF. Norepinephrine was initiated. She received empiric Zosyn and Vancomycin as well as acetaminophen. She is admitted to ICU for septic shock. Patient seen in ED A02. She is AAOx3. Non-toxic appearing, NAD. Feeling subjectively improved. Back pain remains. Does note hematuria at home since discharged. No current nausea, she is tolerating sips and chips. Allergies Allergy/AdvReac Type Severity Reaction Status Date / Time No Known Allergies Allergy Verified 09/29/24 18:27 Home Medications Medication Instructions Recorded Confirmed Type multivitamin 1 tab PO QAM 10/26/23 09/29/24 History cephalexin 500 mg capsule 500 mg PO BID #20 caps 09/20/24 09/29/24 Rx losartan 50 mg tablet 75 mg PO QAM 09/29/24 09/29/24 History Patient History Medical History Kidney infection current abx tx/started abx 09/20/24 - pt reports some improvement with symptoms. urine upcoming 09/26/24. 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 Hx of decompression of ulnar nerve right side History of open reduction and internal fixation (ORIF) procedure left wrist - 2 plates Hx of colonoscopy with polypectomy S/P cystoscopy with ureteral stent placement (11/2023) x2 Hx of appendectomy (1969) History of parathyroid surgery (2009) removal Hx of cataract surgery (2018) b/l Social History Smoking Status: Never smoker Second Hand Exposure: No; Do You Dip or Chew Tobacco: No; Hx Alcohol Use: No Hx Substance Use: No Preferred Language: Telugu Communication Ability: Effective Animal Humane Agent Supervisor Required: No Beliefs That Will Affect Care: None Current Living Situation: Spouse Feels Safe at Home: Yes Assistive Devices: Other Review of Systems Review of Systems: All systems reviewed & are unremarkable except as noted in Subjective Physical Exam Constitutional: WD/WN, vitals as above Eyes: PERRL, conjunctivae normal, anicteric sclerae ENMT: external ear and nose normal, oropharynx normal Neck: trachea midline, no thyromegaly Respiratory: normal respiratory effort, lungs clear to auscultation Cardiovascular: RRR, no murmur, no edema Gastrointestinal (Abdomen): normal bowel sounds, soft, nontender, no hepatosplenomegaly (No RUQ tenderness) Skin: no rashes, warm and dry Neurologic: PERRL, EOMI, accommodation nl, no face palsy, no dysarthria Genitourinary: No edema or bleeding at meatus Results & Data Results & Data Vital Signs (Past 12 Hours) Vital Signs Temp Pulse Pulse Resp BP BP Pulse Ox 09/29/24 19:00 91 H 24 88/56 L 96 09/29/24 18:00 98 H 26 H 98/62 L 95 09/29/24 16:00 105 H 24 131/75 93 09/29/24 15:41 106 H 09/29/24 15:38 107 H 93 09/29/24 15:25 87 L 09/29/24 15:25 37.5 C 115 H 27 H 180/111 H 91 O2 Del Method O2 Flow Rate 09/29/24 19:00 Nasal Cannula 2 09/29/24 18:00 Nasal Cannula 2 09/29/24 16:00 Nasal Cannula 3 09/29/24 15:41 09/29/24 15:38 Nasal Cannula 3 09/29/24 15:25 Room Air 09/29/24 15:25 Room Air Laboratory Results Reviewed Diagnostic Findings Reviewed Medications Administered See MAR Coding Level of Care Code 57257 IN/OBS CONSULT LVL 2,35M Diagnoses Septic shock A41.9; R65.21 RAJESH (acute kidney injury) N17.9 Elevated lactic acid level R79.89 Nephrolithiasis N20.0 Time Spent (min) 35
[2024-09-29] MEDS: ICU Protocol for HYPERglycemia SCH (20:50)
[2024-09-29] MEDS: HYDROmorphone INJ 0.5 MG/0.5 ML SYR IV STA (21:12)
[2024-09-29] MEDS: PIPERACILLIN/TAZOBACTAM 4.5 GM/100 ML BAG IV SCH (21:21)
[2024-09-29] MEDS: VASOPRESSIN 20 UNITS in SODIUM CHLORIDE 0.9% 100 ML IV SCH (21:48)
[2024-09-30] MEDS: ICU ELECTROLYTE REPLACEMENT PROTOCOL SCH (05:28)
[2024-09-30 05:36] LABS: Hematocrit (blood only) 40.6 % (37.0-47.0); Hemoglobin 13.3 g/dl (12.0-16.0); Mean Corpuscular Hemoglobin 31.5 pg (25.0-34.0); Mean Corpuscular Hgb Conc 32.8 g/dL (32.0-36.0); Mean Corpuscular Volume 96.2 fL (80.0-100.0); Mean Platelet Volume 10.9 fL (9.4-12.4); Nucleated RBC # (auto) 0.04 K/uL (0.00-0.12); Nucleated RBC % (auto) 0.1 %; Platelet Count 62 K/uL (130-400); RDW Coefficient of Variation 13.8 % (11.5-14.5); RDW Standard Deviation 48.8 fL (36.4-46.3); Red Blood Count 4.22 M/uL (4.20-5.40); White Blood Count 28.92 K/ul (4.8-10.8)
[2024-09-30 05:39] LABS: Calcium 7.6 mg/dl (8.6-10.3); Magnesium 1.7 mg/dl (1.7-2.4); Potassium 4.2 mmol/L (3.5-5.1)
[2024-09-30 05:45] LABS: BUN Creatinine Ratio 15.5 (10-20); Creatinine Clr Calc Pharmacy 24.5 ml/min; Phosphorus 4.1 mg/dl (2.5-4.9)
[2024-09-30 06:05] LABS: Basophils # (auto) 0.08 K/uL (0.00-0.20); Basophils % (auto) 0.3 %; Eosinophils # (auto) 0.01 K/uL (0.00-0.50); Immature Granulocytes # (auto) 1.72 K/uL (0.01-0.20); Immature Granulocytes % (auto) 5.9 %; Lymphocytes # (auto) 0.31 K/uL (1.20-3.40); Lymphocytes % (auto) 1.1 %; Monocytes # (auto) 0.77 K/uL (0.11-0.59); Monocytes % (auto) 2.7 %; Neutrophils # (auto) 26.03 K/uL (1.40-6.50); Platelet Estimate Decreased (Normal)
[2024-09-30] MEDS: MAGNESIUM SULFATE / D5W 1 GM/100 ML BAG IV SCH (06:13)
[2024-09-30] MEDS ORDERED: VANCOMYCIN HCL 1,000 MG/270 ML BAG IV SCH (07:00)
[2024-09-30] MEDS: ATORVASTATIN 40 MG TAB PO SCH (07:53)
[2024-09-30] MEDS: traMADol HCL 50 MG TABLET PO STA (08:41)
--- NOTE | 2024-09-30 11:05 | Hospitalist Progress Note ---
Date of Service September 30, 2024 Assessment & Plan (1) Septic shock: (2) S/P cystoscopy: Plan 84 yo female with pmhx of recent urologic procedure (on 09/29/2024), CKD stage 3a, osteoporosis, hx of herpes zoster, HLD who presents (on 09/29) for fatigue, weakness and fevers at home post discharge. She had procedure for laser lithotripsy w/ dilatation of L ureteral stricture and stent exchange on 09/29/2024, discharged home post procedure. Procedure was attempted in August 2024 but lithotripsy was aborted at that time due to mucosal splitting. She is being managed for the following: Urinary tract infection, complicated, related to recent instrumentation of urinary tract Septic shock: likely 2/2 above Nephrolithiasis s/p lithotripsy: see above Ureteral stricture s/p dilation and stent replacement RO bacteremia shock as evidenced by lactic acidosis, needing levophed and vasopressin at presentation, pt was admitted to ICU. s/p 3L IVF in ED. Admitting imagings: CXR w/ mild pulm vasc congestion. CTAP: Lt ureteral stent in position, b/l nonobstructive renal stones noted. CT Chest: neg for infectious process. UTI likely 2/2 instrumentation from urologic procedure, imaging unrevealing of other sources at this time. Currently being managed in icu f/u on cultures, c/w zosyn. urology consult, await recs RAJESH (acute kidney injury): in setting of severe sepsis/septic shock s/p urologic instrumentation trend creatinine, up today, pt needing pressors currently, received bolus IVF in ED, c/w maintenance ivf. If further worsening by jes, consider nephro consult. Hypoxia: Does not use oxygen at home, needed up to 2 L oxygen at presentation likely in the setting of acute illness [see above]. No respiratory distress mentioned in ED physician or admitting physician note, hence no respiratory failure. Continue to monitor, wean down oxygen as tolerated, encourage incentive spirometry. CT chest as above. HTN: currently home BP meds on hold. Patient DNRDNI but ok with pressors DVT Px: SCDs, has thrombocytopenia. Admission and Anticipated Discharge Date Admission Date: September 29, 2024 Subjective patient was seen and examined at bedside. Patient was lying in bed, on 2 L nasal cannula oxygen, NAD, resting comfortably. Patient denies any sore throat/cough/chest pain/belly pain/pain or burning with passing urine. Patient reports feeling better today. No new acute event overnight per patient. Physical Exam Physical Exam: GENERAL: Alert and oriented x3. NAD, on 2L NC O2. appears tired. HEENT: No pallor, no icterus. Pupils equal, round and reactive to light. Oral mucosa moist. NECK: No JVD, no neck masses. HEART: S1 and S2 heard. Regular rate and rhythm. No murmur, no gallop. RESPIRATORY SYSTEM: Normal AP diameter. No accessory muscle use. No wheezing, bb crackles. ABDOMEN: Soft, bowel sounds present, nontender, no distention. CENTRAL NERVOUS SYSTEM: No facial droop. Speech is clear. Obeys simple commands. Moves extremities. EXTREMITIES: trace ble edema, no erythema seen. Results & Data Results & Data Vital Signs (Past 12 Hours) Vital Signs Temp Pulse Resp BP Pulse Ox O2 Del Method O2 Flow Rate 09/30/24 10:09 86 22 83/49 L 94 09/30/24 09:06 92 H 27 H 95 09/30/24 09:00 85/52 L 09/30/24 08:57 92 H 17 96 09/30/24 08:15 92 H 20 93 09/30/24 08:00 86 09/30/24 07:30 Nasal Cannula 2 09/30/24 07:01 97/66 L 09/30/24 07:01 97/66 L 09/30/24 07:00 96 H 28 H 09/30/24 06:08 93 H 26 H 09/30/24 06:04 118/72 09/30/24 06:04 118/72 09/30/24 05:53 100 H 25 H 93 09/30/24 05:29 89 23 95 09/30/24 05:06 91 H 25 H 96 09/30/24 05:00 126/66 09/30/24 05:00 126/66 09/30/24 04:54 89 24 97 09/30/24 04:53 93 H 22 96 09/30/24 04:47 92 H 23 95 09/30/24 04:36 87 20 93 09/30/24 04:21 90 21 93 09/30/24 03:56 36.8 C 09/30/24 03:53 87 22 93 09/30/24 03:45 117/63 09/30/24 03:45 117/63 09/30/24 03:36 88 20 93 09/30/24 03:30 87 19 94 09/30/24 03:30 116/60 09/30/24 03:30 116/60 09/30/24 03:30 116/60 09/30/24 03:30 116/60 09/30/24 03:24 88 23 94 09/30/24 03:00 88 22 94 09/30/24 03:00 118/63 09/30/24 03:00 118/63 09/30/24 02:45 121/63 09/30/24 02:39 89 24 94 09/30/24 02:30 116/65 09/30/24 02:27 87 20 92 09/30/24 02:24 113/67 09/30/24 02:24 113/67 09/30/24 02:15 125/80 09/30/24 02:15 85 20 94 09/30/24 02:12 84 17 94 09/30/24 02:00 85 16 94 09/30/24 02:00 122/70 09/30/24 02:00 122/70 09/30/24 02:00 122/70 09/30/24 01:54 82 17 94 09/30/24 01:33 84 19 94 09/30/24 01:30 120/75 09/30/24 01:30 120/75 09/30/24 01:24 83 21 93 09/30/24 01:15 82 16 94 09/30/24 01:15 116/77 09/30/24 01:15 116/77 09/30/24 01:15 116/77 09/30/24 01:15 116/77 09/30/24 01:09 83 25 H 92 09/30/24 01:01 113/64 09/30/24 01:01 113/64 09/30/24 00:48 82 19 94 09/30/24 00:30 122/68 09/30/24 00:30 122/68 09/30/24 00:21 85 17 93 09/30/24 00:18 85 19 93 09/30/24 00:15 116/81 09/30/24 00:15 116/81 09/30/24 00:06 88 20 93 09/30/24 00:00 119/77 09/30/24 00:00 119/77 09/30/24 00:00 119/77 09/30/24 00:00 119/77 09/30/24 00:00 83 14 93 09/29/24 23:46 122/81 09/29/24 23:46 122/81 09/29/24 23:45 83 17 95 09/29/24 23:42 86 18 95 09/29/24 23:30 89 22 94 09/29/24 23:30 93/67 L 09/29/24 23:30 93/67 L 09/29/24 23:21 83 17 93 09/29/24 23:15 111/63 09/29/24 23:15 111/63 09/29/24 23:09 81 18 92 09/29/24 23:00 81 14 93 09/29/24 23:00 112/68 09/29/24 23:00 112/68 09/29/24 22:51 79 20 94 09/29/24 22:45 79 14 94 09/29/24 22:45 105/65 09/29/24 22:45 105/65 09/29/24 22:45 105/65
--- NOTE | 2024-09-30 11:13 | Critical Care Progress Note ---
Date of Service September 30, 2024 Assessment & Plan (1) Septic shock: (2) RAJESH (acute kidney injury): (3) Elevated lactic acid level: (4) Nephrolithiasis: Plan Reason Critically Ill: 1. Septic shock 2. Urinary tract infection, complicated, related to recent instrumentation of urinary tract 3. Nephrolithiasis s/p lithotripsy 4. 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 HAGMA 2/2 lactic acidosis 6. Mildly increased bilirubin and alkaline phosphatase without RUQ pain 7. RAJESH on CKDIII, prerenal Neuro - [facility] ICU: Negative RASS GOAL 0 APAP PRN pain/fever, low-dose Dilaudid PRN severe/breakthrough pain Cardiac - Hold Losartan, continue statin Continue norepinephrine for MAP goal > 65mmHg: Intermittently requiring vasoactive - Briefly required vasopressin however that has remained off LR at 100cc/hr TTE pending Respiratory - No acute concerns SpO2 > 92% IS/Flutter HOB 30 GI - Diet: Poor appetite however did have small bites of food: No abdominal pain SUP: N/A Bowel regimen: Miralax Previous transaminitis not present on initial laboratory evaluation RENAL/LYTES - Replete electrolytes as indicated Bladder scan and straight cath PRN Maintain net even to net negative ENDO - BG 140-180 per [facility] guidelines ISS if needed while inpatient HEME - No acute concerns ID - Received empiric Zosyn/Vancomycin, de-escalated to Zosyn: Continue until speciation given recent treatment of pansensitive E. coli BC x2 pending, UCx pending, patient reports was treated with 10 days of antibiotics for pansensitive E. coli which was resulted on September 18 LINES/TUBES/DRAINS - PIV x2 DVT PROPHYLAXIS - Enoxaparin in AM Admission and Anticipated Discharge Date Admission Date: September 29, 2024 Supervising Physician Co-Signing Physician Notes I have personally spent 35 minutes of critical care time in the direct management of this patient. This is a life/limb threatening event. This includes time spent evaluating patient, direct bedside care, chart review, placing orders, interpretation of diagnostic studies, discussion with consultants, patient, and family members, as well as other required patient management activities. This time is exclusive of all separately billable procedures, and teaching time and separate from and in addition to any other critical care service time. Subjective Reports feeling better than yesterday but still not 100%. Had similar episode with previous stenting and infection Physical Exam Physical Exam: General: Alert. nontoxic. Skin: Warm, dry, Head: Atraumatic Ears, nose, mouth and throat: airway patent Cardiovascular: Normal peripheral perfusion Respiratory: no respiratory distress Gastrointestinal: Non distended Musculoskeletal: No deformity Results & Data Results & Data Vital Signs (Past 12 Hours) Vital Signs Temp Pulse Resp BP Pulse Ox O2 Del Method O2 Flow Rate 09/30/24 10:09 86 22 83/49 L 94 09/30/24 09:06 92 H 27 H 95 09/30/24 09:00 85/52 L 09/30/24 08:57 92 H 17 96 09/30/24 08:15 92 H 20 93 09/30/24 08:00 86 09/30/24 07:30 Nasal Cannula 2 09/30/24 07:01 97/66 L 09/30/24 07:01 97/66 L 09/30/24 07:00 96 H 28 H 09/30/24 06:08 93 H 26 H 09/30/24 06:04 118/72 09/30/24 06:04 118/72 09/30/24 05:53 100 H 25 H 93 09/30/24 05:29 89 23 95 09/30/24 05:06 91 H 25 H 96 09/30/24 05:00 126/66 09/30/24 05:00 126/66 09/30/24 04:54 89 24 97 09/30/24 04:53 93 H 22 96 09/30/24 04:47 92 H 23 95 09/30/24 04:36 87 20 93 09/30/24 04:21 90 21 93 09/30/24 03:56 36.8 C 09/30/24 03:53 87 22 93 09/30/24 03:45 117/63 09/30/24 03:45 117/63 09/30/24 03:36 88 20 93 09/30/24 03:30 87 19 94 09/30/24 03:30 116/60 09/30/24 03:30 116/60 09/30/24 03:30 116/60 09/30/24 03:30 116/60 09/30/24 03:24 88 23 94 09/30/24 03:00 88 22 94 09/30/24 03:00 118/63 09/30/24 03:00 118/63 09/30/24 02:45 121/63 09/30/24 02:39 89 24 94 09/30/24 02:30 116/65 09/30/24 02:27 87 20 92 09/30/24 02:24 113/67 09/30/24 02:24 113/67 09/30/24 02:15 125/80 09/30/24 02:15 85 20 94 09/30/24 02:12 84 17 94 09/30/24 02:00 85 16 94 09/30/24 02:00 122/70 09/30/24 02:00 122/70 09/30/24 02:00 122/70 09/30/24 01:54 82 17 94 09/30/24 01:33 84 19 94 09/30/24 01:30 120/75 09/30/24 01:30 120/75 09/30/24 01:24 83 21 93 09/30/24 01:15 82 16 94 09/30/24 01:15 116/77 09/30/24 01:15 116/77 09/30/24 01:15 116/77 09/30/24 01:15 116/77 09/30/24 01:09 83 25 H 92 09/30/24 01:01 113/64 09/30/24 01:01 113/64 09/30/24 00:48 82 19 94 09/30/24 00:30 122/68 09/30/24 00:30 122/68 09/30/24 00:21 85 17 93 09/30/24 00:18 85 19 93 09/30/24 00:15 116/81 09/30/24 00:15 116/81 09/30/24 00:06 88 20 93 09/30/24 00:00 119/77 09/30/24 00:00 119/77 09/30/24 00:00 119/77 09/30/24 00:00 119/77 09/30/24 00:00 83 14 93 09/29/24 23:46 122/81 09/29/24 23:46 122/81 09/29/24 23:45 83 17 95 09/29/24 23:42 86 18 95 09/29/24 23:30 89 22 94 05/16/25 23:30 93/67 L 09/29/24 23:30 93/67 L 09/29/24 23:21 83 17 93 09/29/24 23:15 111/63 09/29/24 23:15 111/63 Critical Care Results & Data Vital Signs (Past 12 Hours) Vital Signs Temp Pulse Resp BP Pulse Ox O2 Del Method O2 Flow Rate 09/30/24 10:09 86 22 83/49 L 94 09/30/24 09:06 92 H 27 H 95 09/30/24 09:00 85/52 L 09/30/24 08:57 92 H 17 96 09/30/24 08:15 92 H 20 93 09/30/24 08:00 86 09/30/24 07:30 Nasal Cannula 2 09/30/24 07:01 97/66 L 09/30/24 07:01 97/66 L 09/30/24 07:00 96 H 28 H 09/30/24 06:08 93 H 26 H 09/30/24 06:04 118/72 09/30/24 06:04 118/72 09/30/24 05:53 100 H 25 H 93 09/30/24 05:29 89 23 95 09/30/24 05:06 91 H 25 H 96 09/30/24 05:00 126/66 09/30/24 05:00 126/66 09/30/24 04:54 89 24 97 09/30/24 04:53 93 H 22 96 09/30/24 04:47 92 H 23 95 09/30/24 04:36 87 20 93 09/30/24 04:21 90 21 93 09/30/24 03:56 36.8 C 09/30/24 03:53 87 22 93 09/30/24 03:45 117/63 09/30/24 03:45 117/63 09/30/24 03:36 88 20 93 09/30/24 03:30 87 19 94 09/30/24 03:30 116/60 09/30/24 03:30 116/60 09/30/24 03:30 116/60 09/30/24 03:30 116/60 09/30/24 03:24 88 23 94 09/30/24 03:00 88 22 94 09/30/24 03:00 118/63 09/30/24 03:00 118/63 09/30/24 02:45 121/63 09/30/24 02:39 89 24 94 09/30/24 02:30 116/65 09/30/24 02:27 87 20 92 09/30/24 02:24 113/67 09/30/24 02:24 113/67 09/30/24 02:15 125/80 09/30/24 02:15 85 20 94 09/30/24 02:12 84 17 94 09/30/24 02:00 85 16 94 09/30/24 02:00 122/70 09/30/24 02:00 122/70 09/30/24 02:00 122/70 09/30/24 01:54 82 17 94 09/30/24 01:33 84 19 94 09/30/24 01:30 120/75 09/30/24 01:30 120/75 09/30/24 01:24 83 21 93 09/30/24 01:15 82 16 94 09/30/24 01:15 116/09/30/24 01:15 116/09/30/24 01:15 116/77 09/30/24 01:15 116/77 09/30/24 01:09 83 25 H 92 09/30/24 01:01 11309/30/24 01:01 113/09/30/24 00:48 82 19 94 Lab & Micro Results (Past 24 Hours) RBC 3.89 M/uL (4.20-5.40) L 09/30/24 WBC 28.67 K/ul (4.8-10.8) H 09/30/24 Hgb 12.2 g/dl (12.0-16.0) 09/30/24 Hct 37.0 % (37.0-47.0) 09/30/24 MCV 95.1 fL (80.0-100.0) 09/30/24 MCH 31.4 pg (25.0-34.0) 09/30/24 MCHC 33.0 g/dL (32.0-36.0) 09/30/24 RDW Standard Deviation 48.2 fL (36.4-46.3) H 09/30/24 RDW Coefficient of Variation 13.8 % (11.5-14.5) 09/30/24 Plt Count 70 K/uL (130-400) L 09/30/24 MPV 11.6 fL (9.4-12.4) 09/30/24 Nucleated Red Blood Cells % (auto) 0.1 % 09/30 Nucleated RBC Absolute Count (auto) 0.04 K/uL (0.00-0.12) 0 09/30/24 Neutrophils (%) (Auto) 90.0 % 09/30/24 Lymphocytes (%) (Auto) 1.1 % 09/30/24 Monocytes # (Auto) 0.77 K/uL (0.11-0.59) H 09/30/24 Eosinophils # (Auto) 0.01 K/uL (0.00-0.50) 09/30/24 Immature Granulocyte % (Auto) 5.9 % 09/30/24 Neutrophils # (Auto) 26.03 K/uL (1.40-6.50) H 09/30/24 Lymphocytes # (Auto) 0.31 K/uL (1.20-3.40) L 09/30/24 Monocytes # (Auto) 0.77 K/uL (0.11-0.59) H 09/30/24 Eosinophils # (Auto) 0.01 K/uL (0.00-0.50) 09/30/24 Basophils # (Auto) 0.08 K/uL (0.00-0.20) 09/30/24 Immature Granulocyte # (Auto) 1.72 K/uL (0.01-0.20) H 09/30 Toxic Vacuolation 3+ 09/29/24 Na 136 mmol/L (136-145) 09/30/24 K 4.0 mmol/L (3.5-5.1) 09/30/24 Cl 104 mmol/L (98-107) 09/30/24 CO2 18 mmol/L (21-32) L 09/30/24 Anion Gap 14 (3-11) H 09/30/24 BUN 29 mg/dl (6-23) H 09/30/24 Creatinine 1.82 mg/dl (0.6-1.2) H 09/30/24 BUN/Creatinine Ratio 15.9 (10-20) 09/30/24 Glu 122 mg/dl (70-99(Fasting)) H 09/30/24 Ca 7.7 mg/dl (8.6-10.3) L 09/30/24 Phosphorus Level 4.1 mg/dl (2.5-4.9) 09/30/24 Total Bilirubin 1.2 mg/dl (0.2-1.0) H 09/29/24 AST 26 U/L (13-39) 09/29/24 ALT 17 U/L (7-52) 09/29/24 Alkaline Phosphatase 111 U/L (34-104) H 09/29/24 TP 7.1 gm/dl (6.0-8.3) 09/29/24 Albumin 4.0 gm/dl (3.4-5.0) 09/29/24 Globulin 3.1 gm/dl (2.5-4.0) 09/29/24 Albumin/Globulin Ratio 1.3 (0.9-2) 09/29/24 Mg 1.7 mg/dl (1.7-2.4) 09/30/24 04:58 Calcium Level 7.7 mg/dl (8.6-10.3) L 09/30/24 12:03 Prothromb Time International Ratio 1.3 (0.9-1.1) H 09/29/24 15 :30 Diagnostic Findings (Past 24 Hours) Chest X-Ray 09/29/24 15:32 Clinical History: Sepsis Technique: A frontal view of the chest was obtained Comparison is made to the prior examination dated 10/26/2023 Findings: There are no definite pulmonary infiltrates. The heart size is within normal limits. No pleural effusion or pneumothorax is seen. There is suspected mild pulmonary vascular congestion No fracture is noted. There is scoliosis Impression: Suspected mild pulmonary vascular congestion Electronically signed by Bill Guallpa 09-29-2024 4:19 PM Abdomen/Pelvis CT 09/29/24 17:22 EXAMINATION: CT urogram of the abdomen and pelvis performed before and after the administration of IV contrast TECHNIQUE: Helical CT images from the lung bases through the symphysis pubis were obtained with and without contrast. Coronal and sagittal reformatted images were generated at a workstation for further assessment. Dose reduction techniques were achieved by using automatic exposure control and/or adjustment of mA and/or kV according to patient size and/or use of iterative reconstruction technique. COMPARISON: 04/25/2024 HISTORY: Renal stones FINDINGS: Lower chest: No acute abnormality. Liver: Unremarkable. No focal lesions are seen. Gallbladder and biliary tree: No calcified gallstones. Normal caliber wall. No intra- or extrahepatic biliary ductal dilation. There is pericholecystic fluid. Pancreas: Unremarkable, no focal lesions. Spleen: Unremarkable. Adrenals: Unremarkable. Kidneys and ureters: Nonobstructive stones are seen in the bilateral kidneys, not significantly changed. There are coarsened, prominent stones throughout the inferior aspect of the left kidney, which are nonobstructing. No evidence of hydronephrosis. There is a left nephroureteral stent placed. There is contrast excretion into the renal collecting systems, and into the ureters. No renal masses. There is a duplicated right renal collecting system, and 2 ureters. Bladder: Unremarkable. No suspicious filling defects. Reproductive organs: Unremarkable. No adnexal mass. Bowel: A hiatal hernia is seen. Diverticulosis is seen without diverticulitis. Lymph nodes Retroperitoneal: Subcentimeter lymph nodes are noted. Pelvic: Unremarkable. Mesenteric: Unremarkable. Peritoneum: Normal. Vessels: Atherosclerotic calcifications are seen. Abdominal wall: Unremarkable. Bones: Degenerative changes are seen with grade 1 anterolisthesis of L4-L5. IMPRESSION: Left nephroureteral stent in position. No hydronephrosis or hydroureter. Duplicated right renal collecting system. Nonobstructive stones are seen in the bilateral kidneys, are similar to prior. Electronically signed by Ramirez Marie 09-29-2024 6:[address] 09/29/24 17:22 CT chest without contrast History: Sepsis Comparison: None Technique: Helical CT imaging of the chest performed without IV contrast Dose reduction techniques were achieved by using automatic exposure control and/or adjustment of mA and/or kV according to patient size and/or use of iterative reconstruction technique. Findings: No focal consolidation. No pleural effusion. No pneumothorax. Heart size is normal. Moderate coronary calcification. The thoracic aorta is normal in size. The pulmonary artery is normal in size. No significant pericardial effusion. No suspicious lymphadenopathy in the chest. The central airway is clear. Limited visualized upper abdomen. Small sliding hiatal hernia. No acute bony abnormalities. Impression: Normal CT chest. No evidence for an infectious process in the lungs. Electronically signed by Ramirez Marie 09-29-2024 6:05 PM I & O Totals 24 Hours 09/29/24 09/30/24 10/01/24 06:59 06:59 06:59 Intake Total 3631.118 / 3631.118 485.833 / 485.833 Output Total 200 / 200 Balance 3431.118 / 3431.118 485.833 / 485.833 Cumulative 09/29/24 15:10 thru 09/30/24 11:43 Intake Total 4116.951 Output Total 200 Balance 3916.951 RT Ventilator Mngmt (Last Documented) Ventilator Ordered Settings Respiratory Rate 22 09/30/24 10:09 Ventilator - PT Measurements Respiratory Rate 22 Coding Level of Care Code 40160 CRITICAL CARE 1ST 30-74M Diagnoses Septic shock A41.9; R65.21 RAJESH (acute kidney injury) N17.9 Elevated lactic acid level R79.89 Nephrolithiasis N20.0
[2024-09-30 12:16] LABS: Hemoglobin 12.2 g/dl (12.0-16.0); Mean Corpuscular Hemoglobin 31.4 pg (25.0-34.0); Mean Corpuscular Volume 95.1 fL (80.0-100.0); Mean Platelet Volume 11.6 fL (9.4-12.4); Platelet Count 70 K/uL (130-400); RDW Coefficient of Variation 13.8 % (11.5-14.5); RDW Standard Deviation 48.2 fL (36.4-46.3); Red Blood Count 3.89 M/uL (4.20-5.40); White Blood Count 28.67 K/ul (4.8-10.8)
[2024-09-30 12:38] LABS: Calcium 7.7 mg/dl (8.6-10.3)
[2024-09-30 12:44] LABS: BUN Creatinine Ratio 15.9 (10-20); Creatinine Clr Calc Pharmacy 20.8 ml/min
--- NOTE | 2024-09-30 13:47 | Electrocardiogram Report ---
Test Reason : Blood Pressure : */* mmHG Vent. Rate : 115 BPM Atrial Rate : 115 BPM P-R Int : 118 ms QRS Dur : 70 ms QT Int : 312 ms P-R-T Axes : 47 57 27 degrees QTcB Int : 431 ms Sinus tachycardia Nonspecific ST abnormality Abnormal ECG When compared with ECG of 26-Oct-2023 21:56, No significant change was found Confirmed by Tristen العلي ([id number]) on 09/30/2024 1:46:59 PM Referred By: Confirmed By: Tristen العلي
--- NOTE | 2024-09-30 15:31 | Urology Consultation ---
Date of Consultation September 30, 2024 Assessment & Plan (1) Septic shock: (2) RAJESH (acute kidney injury): (3) Elevated troponin: (4) Elevated procalcitonin: (5) Elevated lactic acid level: (6) Severe sepsis: (7) Nephrolithiasis: (8) Ureteral stone: Plan Patient with severe sepsis with development of septic shock with significant hypotension with resuscitation. Patient likely experiencing severe pyelonephritis. Patient had undergone ureteroscopy. Had developed severe issues afterwards. Had initially been discharged home after procedure. Developed significant nausea and vomiting at home. Developed sudden increase in pain and discomfort and on presentation was found to be severely ill with developing sepsis and severe hypotension. Patient has improved drastically overnight. Per patient her nausea and vomiting issues have resolved completely. Abdominal pain and discomfort have decreased significantly. Currently not having major symptoms or problems. Is being monitored closely. Blood pressures have remained below and have had to be closely monitored throughout the process. Patient has not had severe fever this morning. Tmax since admission has only been 37.5. Did have some lower temperatures throughout the night. Pulse was currently 86. Respirations 22 oxygen saturation 94% on 2 L nasal cannula. Patient is undergoing close monitoring in the intensive care unit. Is being monitored for worsening issues. Also is being covered with broad-spectrum antibiotics. Patient independently assessed, examined, interviewed, and evaluated. Patient's vitals and labs were all reviewed. Pertinent values in the HPI and plan section. Imaging was reviewed interpreted by myself. Agree with read. Vitals were reviewed. Discussed findings extensively with patient and family. Reviewed with consulting physicians/team yesterday on patient's admission. Patient's complicated medical and surgical history was reviewed and summarized above. Patient's surgical, medical, social, and family history were all reviewed with pertinent values as above. Discussed patient's current diagnosis as well as concerns and issues. Reviewed different options moving forward. Discussed potential risks and benefits as well as possible options and concerns. Reviewed potential surgical options and interventions. Current imaging have been thoroughly reviewed. The stent on the left side does appear to be in good position. 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 Discussed potential issues and concerns related to intervention. Risk and benefits were discussed extensively with patient and any available family. Discussed potential risks related to anesthesia. Discussed risks of bleeding infection and injury. With stent in good position would recommend against invasive intervention. Would likely need continued supportive care and full resuscitation before procedure would be warranted and less patient developed severe worsening sepsis unresponsive. Patient's CT of the chest was also reviewed and interpreted by myself. No significant signs of pneumonia or other major issue on that imaging. Current imaging did have concern for possible developing pyelonephritis. May also be postsurgical changes. Patient once labs were all thoroughly reviewed pertinent values in the HPI or plan section. Most significantly is the patient's white count which is at 28.67. Agree with plans for supportive care. Discussed close monitoring. With patient's acute illness will plan to continue to follow moving forward. If surgical intervention or other issue is needed we will plan to move forward otherwise we will plan to continue to observe. Agree with plans for continued resuscitation broad-spectrum antibiotics and awaiting full culture results and assessment for infectious agent. History of Present Illness Attending Physician: Ino Hubbard MD History of Present Illness New consultation for acutely ill and septic patient with UTI/Pyelo, discomfort, and ill feelings. Patient had undergone procedure yesterday with Dr. Chaney. After procedure patient was able to be discharged home. At home patient developed some nausea and did suddenly developed vomiting. After the vomiting developed patient became significantly more acutely ill. Patient developed sudden onset of pain into flank going down and radiating into groin and back in waves comes and goes. Can be severe at times. Presented with severe illness. Had presented with altered mental status due to acute illness Patient was admitted to the critical care unit where she was undergoing close observation resuscitation and close monitoring. Was found to have significant sepsis with hypotension. Required pressors for maintenance while undergoing resuscitation. Patient had significantly elevated lactic acid level. Also had elevated troponins. Patient had significant RAJESH on presentation as well. White count was severely elevated. Patient did have preoperative antibiotics. Hemoglobin 12.2. Creatinine up to 1.82 today. White count is significantly elevated at 28.67. Patient also had undergone evaluation for possible source. Had undergone CT of abdomen pelvis and chest. Had undergone panel for possible infectious source Cultures are currently pending. Had blood cultures as well as urine culture. Preoperative urine culture was clear with previous ones showing E. coli. No major findings of obstruction were discovered on the CT of the abdomen pelvis. Stent on the left side did appear to be in good position. 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 Patient was admitted yesterday. Evaluated this morning after resuscitation. Patient is still having issues with hypotension. Has considerable improvement of mentation. Altered mental status has improved. Nausea and vomiting have resolved as well. Having some minor pain with urgency and frequency without severe issues. Discussed and reviewed patient's personal medical, surgical, social, and family history for any history of issues, infections, and disease. Also, discussed patient's medical/surgery history especially related to any history of urinary issues or stone disease. Patient is undergoing intense/critical management for acute illness and being monitored with the critical care unit. Hospitalist/ICU team has admitted and is undergoing observation with broad spectrum IV antibiotics. Allergies Allergy/AdvReac Type Severity Reaction Status Date / Time No Known Allergies Allergy Verified 09/29/24 18:27 Home Medications Medication Instructions Recorded Confirmed Type multivitamin 1 tab PO QAM 10/26/23 09/29/24 History cephalexin 500 mg capsule 500 mg PO BID #20 caps 09/20/24 09/29/24 Rx losartan 50 mg tablet 75 mg PO QAM 09/29/24 09/29/24 History Patient History Medical History Kidney infection current abx tx/started abx 09/20/24 - pt reports some improvement with symptoms. urine upcoming 09/26/24. 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 Hx of decompression of ulnar nerve right side History of open reduction and internal fixation (ORIF) procedure left wrist - 2 plates Hx of colonoscopy with polypectomy S/P cystoscopy with ureteral stent placement (11/2023) x2 Hx of appendectomy (1969) History of parathyroid surgery (2009) removal Hx of cataract surgery (2018) b/l Social History Smoking Status: Never smoker Second Hand Exposure: No; Do You Dip or Chew Tobacco: No; Hx Alcohol Use: No Hx Substance Use: No Preferred Language: Turkmen Communication Ability: Effective Engineering Specialist Technician Required: No Beliefs That Will Affect Care: None Current Living Situation: Spouse Feels Safe at Home: Yes Safety Concerns: Feels Safe At This Time Assistive Devices: None Review of Systems Review of Systems: All systems reviewed & are unremarkable except as noted in HPI & below Limited due to patient illness Physical Exam Physical Exam: General: Acutely ill. Undergoing critical care management for acute severe infection. Persistent hypotension HEENT: Normocephalic Atraumatic. Inspection normal. Cranial Nerves 2-12 Grossly intact. Nares are clear. Neck is supple. Normal inspection of face. Normal inspection of neck. Neurologic: No deficits on inspection. Baseline for motor function and sensory. Psychologic: Anxious, delirium resolved Respiratory: Mild labored. No use of accessory muscles. No severe dyspnea. Cardiovascular: tachycardia Skin: [place] and Dry. No rashes or visible lesions. Febrile Extremities: Moving without issues. No motor deficits on inspection Lymphatics: Mild edema Abdomen: Mildly distended. No rebound or guarding. Mild suprapubic/flank tenderness Results & Data Vital Signs (Past 12 Hours) Vital Signs Temp Pulse Resp BP Pulse Ox O2 Del Method O2 Flow Rate 09/30/24 10:09 86 22 83/49 L 94 09/30/24 09:06 92 H 27 H 95 09/30/24 09:00 85/52 L 09/30/24 08:57 92 H 17 96 09/30/24 08:15 92 H 20 93 09/30/24 08:00 86 09/30/24 07:30 Nasal Cannula 2 09/30/24 07:01 97/66 L 09/30/24 07:01 97/66 L 09/30/24 07:00 96 H 28 H 09/30/24 06:08 93 H 26 H 09/30/24 06:04 118/72 09/30/24 06:04 118/72 09/30/24 05:53 100 H 25 H 93 09/30/24 05:29 89 23 95 09/30/24 05:06 91 H 25 H 96 09/30/24 05:00 126/66 09/30/24 05:00 126/66 09/30/24 04:54 89 24 97 09/30/24 04:53 93 H 22 96 09/30/24 04:47 92 H 23 95 09/30/24 04:36 87 20 93 09/30/24 04:21 90 21 93 09/30/24 03:56 36.8 C 09/30/24 03:53 87 22 93 09/30/24 03:45 117/63 09/30/24 03:45 117/63 09/30/24 03:36 88 20 93 09/30/24 03:30 87 19 94 09/30/24 03:30 116/60 09/30/24 03:30 116/60 09/30/24 03:30 116/60 09/30/24 03:30 116/60 09/30/24 03:24 88 23 94 09/30/24 03:00 88 22 94 09/30/24 03:00 118/63 09/30/24 03:00 118/63 09/30/24 02:45 121/63 09/30/24 02:39 89 24 94 09/30/24 02:30 116/65 09/30/24 02:27 87 20 92 09/30/24 02:24 113/67 09/30/24 02:24 113/67 09/30/24 02:15 125/80 09/30/24 02:15 85 20 94 09/30/24 02:12 84 17 94 09/30/24 02:00 85 16 94 09/30/24 02:00 122/70 09/30/24 02:00 122/70 09/30/24 02:00 122/70 09/30/24 01:54 82 17 94 09/30/24 01:33 84 19 94 09/30/24 01:30 120/75 09/30/24 01:30 120/75 09/30/24 01:24 83 21 93 09/30/24 01:15 82 16 94 09/30/24 01:15 116/77 09/30/24 01:15 116/77 09/30/24 01:15 116/77 09/30/24 01:15 116/77 09/30/24 01:09 83 25 H 92 09/30/24 01:01 113/64 09/30/24 01:01 113/64 09/30/24 00:48 82 19 94 PG Care Time/CCT Total # of Minutes Spent Total Time Spent with Patient: Total time spent is greater than 50% in coordination of care (as documented) at patient's floor/unit and/or counseling patient: Coding Level of Care Code 49743 INT INP/OBS CARE 3/75MIN Diagnoses Septic shock A41.9; R65.21 RAJESH (acute kidney injury) N17.9 Elevated troponin R79.89 Elevated procalcitonin R79.89 Elevated lactic acid level R79.89 Severe sepsis A41.9; R65.20 Nephrolithiasis N20.0 Ureteral stone N20.1
[2024-10-01 05:15] LABS: ALC (manual) 0.25 K/uL (1.2-3.4); Dohle Bodies 1+; Hemoglobin 12.2 g/dl (12.0-16.0); Lymphocytes # (manual) 0.25 K/uL (1.2-3.4); Lymphocytes % (manual) 1 %; Mean Corpuscular Hemoglobin 31.6 pg (25.0-34.0); Mean Corpuscular Hgb Conc 33.9 g/dL (32.0-36.0); Mean Corpuscular Volume 93.3 fL (80.0-100.0); Mean Platelet Volume 12.1 fL (9.4-12.4); Metamyelocytes # (manual) 2.01 K/uL (0-0); Metamyelocytes % (manual) 8 %; Monocytes % (manual) 2 %; Myelocytes % (manual) 2 %; Neutrophils % (manual) 87 %; Platelet Count 56 K/uL (130-400); Polychromasia 1+; RDW Coefficient of Variation 13.7 % (11.5-14.5); RDW Standard Deviation 46.6 fL (36.4-46.3); Red Blood Count 3.86 M/uL (4.20-5.40); Toxic Vacuolation 1+; White Blood Count 25.17 K/ul (4.8-10.8)
[2024-10-01 05:28] LABS: Bilirubin Direct 0.4 mg/dl (0-0.2); Bilirubin,Total 1.1 mg/dl (0.2-1.0); Calcium 7.8 mg/dl (8.6-10.3); Magnesium 2.2 mg/dl (1.7-2.4); Potassium 4.5 mmol/L (3.5-5.1)
[2024-10-01 05:34] LABS: BUN Creatinine Ratio 17.9 (10-20); Creatinine Clr Calc Pharmacy 18.9 ml/min; Phosphorus 5.1 mg/dl (2.5-4.9); Total Protein 5.8 gm/dl (6.0-8.3)
[2024-10-01 07:43] LABS: Fibrinogen 312 mg/dl (184-400); INR 1.3 (0.9-1.1); Partial Thromboplastin Ratio 1.4; Partial Thromboplastin Time 38 Seconds (21-31); Prothrombin Time 13.9 Seconds (9.0-12.0)
--- NOTE | 2024-10-01 07:54 | Critical Care Progress Note ---
Date of Service October 01, 2024 Assessment & Plan (1) Septic shock: (2) RAJESH (acute kidney injury): (3) Elevated lactic acid level: (4) Nephrolithiasis: Plan Reason Critically Ill: 1. Septic shock 2. Urinary tract infection, complicated, related to recent instrumentation of urinary tract 3. Nephrolithiasis s/p lithotripsy 4. 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 HAGMA 2/2 lactic acidosis 6. Mildly increased bilirubin and alkaline phosphatase without RUQ pain 7. RAJESH on CKDIII, prerenal Neuro - [facility] ICU: Negative RASS GOAL 0 APAP PRN pain/fever, low-dose Dilaudid PRN severe/breakthrough pain Cardiac - Hold Losartan, continue statin Has remained off vasoactive medication since 5 AM -Echocardiogram reviewed Respiratory - No acute concerns SpO2 > 92% IS/Flutter HOB 30 GI - Diet: Tolerating diet SUP: N/A Bowel regimen: Miralax Previous transaminitis not present on initial laboratory evaluation RENAL/LYTES - Acute kidney injury: Acute renal failure: Hopefully creatinine has nadired: Nonoliguric Lactic acid acidosis - Thiamine supplementation will recheck Bladder scan and straight cath PRN - Tolerating p.o. intake discontinue supplemental fluid: Approximately 6 L positive fluid balance ENDO - BG 140-180 per [facility]M guidelines ISS if needed while inpatient HEME - Leukocytosis: Likely reactionary Thrombocytopenia: Low probability for heparin-induced thrombocytopenia: No exposure Mildly elevated INR and elevated split products fibrinogen within normal limits - This would be anticipated in the setting of sepsis/SIRS ID - Received empiric Zosyn/Vancomycin, de-escalated to Zosyn: Continue until speciation given recent treatment of pansensitive E. coli No growth to date however patient clinically improved and afebrile. Will transition from IV Zosyn to oral Augmentin for for 14-day treatment course in total given indwelling ureteral stent LINES/TUBES/DRAINS - PIV x2 DVT PROPHYLAXIS - Heparin 5000 twice times daily Encourage ambulation Stable for downgrade out of ICU Admission and Anticipated Discharge Date Admission Date: September 29, 2024 Subjective Patient feels improved compared to yesterday. Desires to ambulate. Physical Exam Physical Exam: General: Alert. nontoxic. Skin: Warm, dry, Head: Atraumatic Ears, nose, mouth and throat: airway patent Cardiovascular: Normal peripheral perfusion Respiratory: no respiratory distress Gastrointestinal: Non distended Musculoskeletal: No deformity Results & Data Results & Data Vital Signs (Past 12 Hours) Vital Signs Temp Pulse Pulse Resp BP BP Pulse Ox 10/01/24 07:03 83 19 93 10/01/24 07:00 115/59 L 10/01/24 07:00 36.6 C 78 18 115/59 L 92 10/01/24 06:39 83 14 92 10/01/24 06:06 85 19 99 10/01/24 06:01 110/70 10/01/24 06:01 110/70 10/01/24 05:54 85 16 99 10/01/24 05:15 84 29 H 98 10/01/24 05:01 132/66 10/01/24 05:00 82 18 98 10/01/24 04:48 173/71 H 10/01/24 04:48 173/71 H 10/01/24 04:48 85 29 H 92 10/01/24 04:06 75 14 98 10/01/24 04:00 112/62 10/01/24 04:00 112/62 10/01/24 03:51 75 21 99 10/01/24 03:06 72 21 99 10/01/24 03:00 109/60 10/01/24 02:54 73 30 H 99 10/01/24 02:00 100/56 L 10/01/24 02:00 76 17 98 10/01/24 01:15 76 16 93 10/01/24 01:01 104/56 L 10/01/24 00:57 77 17 89 L 10/01/24 00:15 84 18 98 10/01/24 00:01 100/64 10/01/24 00:01 100/64 10/01/24 00:00 87 17 99 09/30/24 23:03 82 15 99 09/30/24 23:01 130/63 09/30/24 23:01 130/63 09/30/24 23:01 130/63 09/30/24 22:48 85 22 99 09/30/24 22:00 77 17 99 09/30/24 21:16 102/76 09/30/24 21:15 85 24 100 09/30/24 21:00 83 16 99 09/30/24 20:07 09/30/24 20:07 09/30/24 20:06 91 H 22 92 09/30/24 20:00 121/74 09/30/24 19:57 85 22 92 Pulse Ox O2 Del Method O2 Del Method O2 Flow Rate O2 Flow Rate 10/01/24 07:03 10/01/24 07:00 10/01/24 07:00 Room Air, Nasal Cannula 10/01/24 06:39 10/01/24 06:06 10/01/24 06:01 10/01/24 06:01 10/01/24 05:54 10/01/24 05:15 10/01/24 05:01 10/01/24 05:00 10/01/24 04:48 10/01/24 04:48 10/01/24 04:48 10/01/24 04:06 10/01/24 04:00 10/01/24 04:00 10/01/24 03:51 10/01/24 03:06 10/01/24 03:00 10/01/24 02:54 10/01/24 02:00 10/01/24 02:00 10/01/24 01:15 10/01/24 01:01 10/01/24 00:57 10/01/24 00:15 10/01/24 00:01 10/01/24 00:01 10/01/24 00:00 09/30/24 23:03 09/30/24 23:01 09/30/24 23:01 09/30/24 23:01 09/30/24 22:48 09/30/24 22:00 09/30/24 21:16 09/30/24 21:15 09/30/24 21:00 09/30/24 20:07 93 Nasal Cannula 2 09/30/24 20:07 Nasal Cannula 2 09/30/24 20:06 09/30/24 20:00 09/30/24 19:57 Critical Care Results & Data Vital Signs (Past 12 Hours) Vital Signs Temp Pulse Pulse Resp BP BP Pulse Ox 10/01/24 07:03 83 19 93 10/01/24 07:00 115/59 L 10/01/24 07:00 36.6 C 78 18 115/59 L 92 10/01/24 06:39 83 14 92 10/01/24 06:06 85 19 99 10/01/24 06:01 110/70 10/01/24 06:01 110/70 10/01/24 05:54 85 16 99 10/01/24 05:15 84 29 H 98 10/01/24 05:01 132/66 10/01/24 05:00 82 18 98 10/01/24 04:48 173/71 H 10/01/24 04:48 173/71 H 10/01/24 04:48 85 29 H 92 10/01/24 04:06 75 14 98 10/01/24 04:00 112/62 10/01/24 04:00 112/62 10/01/24 03:51 75 21 99 10/01/24 03:06 72 21 99 10/01/24 03:00 109/60 10/01/24 02:54 73 30 H 99 10/01/24 02:00 100/56 L 10/01/24 02:00 76 17 98 10/01/24 01:15 76 16 93 10/01/24 01:01 104/56 L 10/01/24 00:57 77 17 89 L 10/01/24 00:15 84 18 98 10/01/24 00:01 100/64 10/01/24 00:01 100/64 10/01/24 00:00 87 17 99 O2 Del Method 10/01/24 07:03 10/01/24 07:00 10/01/24 07:00 Room Air, Nasal Cannula 10/01/24 06:39 10/01/24 06:06 10/01/24 06:01 10/01/24 06:01 10/01/24 05:54 10/01/24 05:15 10/01/24 05:01 10/01/24 05:00 10/01/24 04:48 10/01/24 04:48 10/01/24 04:48 10/01/24 04:06 10/01/24 04:00 10/01/24 04:00 10/01/24 03:51 10/01/24 03:06 10/01/24 03:00 10/01/24 02:54 10/01/24 02:00 10/01/24 02:00 10/01/24 01:15 10/01/24 01:01 10/01/24 00:57 10/01/24 00:15 10/01/24 00:01 10/01/24 00:01 10/01/24 00:00 Lab & Micro Results (Past 24 Hours) RBC 3.86 M/uL (4.20-5.40) L 10/01/24 WBC 25.17 K/ul (4.8-10.8) H 10/01/24 Hgb 12.2 g/dl (12.0-16.0) 10/01/24 Hct 36.0 % (37.0-47.0) L 10/01/24 MCV 93.3 fL (80.0-100.0) 10/01/24 MCH 31.6 pg (25.0-34.0) 10/01/24 MCHC 33.9 g/dL (32.0-36.0) 10/01/24 RDW Standard Deviation 46.6 fL (36.4-46.3) H 10/01/24 RDW Coefficient of Variation 13.7 % (11.5-14.5) 10/01/24 Plt Count 56 K/uL (130-400) L 10/01/24 MPV 12.1 fL (9.4-12.4) 10/01/24 ANC 21.90 K/uL (1.4-6.5) H 10/01/24 ALC 0.25 K/uL (1.2-3.4) L 10/01/24 Neutrophils % (Manual) 87 % 10/01/24 Lymphocytes % (Manual) 1 % 10/01/24 Monocytes % (Manual) 2 % 10/01/24 Metamyelocytes % (manual) 8 % 10/01/24 Myelocytes % (Manual) 2 % 10/01/24 Neutrophils # (Manual) 21.90 K/uL (1.40-6.50) H 10/01/24 Lymphocytes # (Manual) 0.25 K/uL (1.2-3.4) L 10/01/24 Monocytes # (Manual) 0.50 K/uL (0.11-0.59) 10/01/24 Metamyelocytes # (Manual) 2.01 K/uL (0-0) H 10/01/24 Myelocytes # (Manual) 0.50 K/uL (0-0) H 10/01/24 Polychromasia 1+ 10/01/24 Toxic Vacuolation 1+ 10/01/24 Dohle Bodies 1+ 10/01/24 Na 134 mmol/L (136-145) L 10/01/24 K 4.5 mmol/L (3.5-5.1) 10/01/24 Cl 104 mmol/L (98-107) 10/01/24 CO2 19 mmol/L (21-32) L 10/01/24 Anion Gap 11 (3-11) 10/01/24 BUN 36 mg/dl (6-23) H 10/01/24 Creatinine 2.01 mg/dl (0.6-1.2) H 10/01/24 BUN/Creatinine Ratio 17.9 (10-20) 10/01/24 Glu 92 mg/dl (70-99(Fasting)) 10/01/24 Ca 7.8 mg/dl (8.6-10.3) L 10/01/24 Phosphorus Level 5.1 mg/dl (2.5-4.9) H 10/01/24 Total Bilirubin 1.1 mg/dl (0.2-1.0) H 10/01/24 Direct Bilirubin 0.4 mg/dl (0-0.2) H 10/01/24 AST 34 U/L (13-39) 10/01/24 ALT 22 U/L (7-52) 10/01/24 Alkaline Phosphatase 57 U/L (34-104) 10/01/24 TP 5.8 gm/dl (6.0-8.3) L 10/01/24 Albumin 3.0 gm/dl (3.4-5.0) L 10/01/24 Mg 2.2 mg/dl (1.7-2.4) 10/01/24 04:26 Calcium Level 7.8 mg/dl (8.6-10.3) L 10/01/24 04:26 Prothromb Time International Ratio 1.3 (0.9-1.1) H 10/01/24 06 :54 Microbiology 09/29/24 16:08 Aerobic Blood Culture - Preliminary Blood No growth in Aerobic bottle after 24 hours. Anaerobic Blood Culture - Preliminary No growth in Anaerobic bottle after 24 hours. 09/29/24 15:30 Aerobic Blood Culture - Preliminary Blood No growth in Aerobic bottle after 24 hours. Anaerobic Blood Culture - Preliminary No growth in Anaerobic bottle after 24 hours. I & O Totals 24 Hours 09/30/24 10/01/24 10/02/24 06:59 06:59 06:59 Intake Total 3631.118 / 3631.118 4293.010 / 4293.010 Output Total 200 / 200 1445 / 1445 550 / 550 Balance 3431.118 / 3431.118 2848.010 / 2848.010 -550 / -550 Cumulative 09/29/24 15:10 thru 10/01/24 07:58 Intake Total 7924.128 Output Total 2195 Balance 5729.128 RT Ventilator Mngmt (Last Documented) Ventilator Ordered Settings Respiratory Rate 19 10/01/24 07:03 Ventilator - PT Measurements Respiratory Rate 19 Coding Level of Care Code 47501 SUB INP/OBS CARE 3/50MIN Diagnoses Septic shock A41.9; R65.21 RAJESH (acute kidney injury) N17.9 Elevated lactic acid level R79.89 Nephrolithiasis N20.0
[2024-10-01 08:10] LABS: D Dimer > 35200 ug/L FEU (0-500)
[2024-10-01] MEDS: traMADol HCL 50 MG TABLET PO PRN (08:22)
--- NOTE | 2024-10-01 10:45 | Urology Progress Note ---
Date of Service October 01, 2024 Assessment & Plan (1) Nephrolithiasis: (2) Severe sepsis: (3) Ureteral stone: (4) Elevated procalcitonin: (5) Acute hypoxemic respiratory failure: (6) RAJESH (acute kidney injury): (7) Septic shock: Plan Patient postop day 2 status post ureteroscopy. Patient developed severe sepsis after discharge. Had initially presented with nausea and vomiting but developed severe hypotension. Patient's current blood cultures have no growth. Patient's preoperative culture was negative with no growth. Previous urinary cultures had shown pansensitive E. coli. Patient is continuing on supportive care. Has been dealing with significant hypotensive issues and had undergone a extensive resuscitation as well as critical care management and monitoring. Patient has been improving from critically ill state. Is not having severe pain or issues. Is having some urgency and frequency. Has not had major bleeding or other development of problems. Patient's lab work is up to monitor. White count is still severely elevated at 25.17. Creatinine was at 2.01. Reviewed extensively continued observation. Presumed pyelonephritis. Will need to await full results from culture results. Will likely be able to de-escalate antibiotic once full culture results are available. Will need to monitor closely. Patient blood pressure has been improving we will need to monitor for now to see if develops worsening issues again. Symptomatically patient does appear to be improving Patient in guarded condition however with recent severe sepsis/septic shock hypotension and persistent elevation of white count.. Will plan to continue follow-up. Admission and Anticipated Discharge Date Admission Date: September 29, 2024 Subjective Patient admitted with fever and sepsis after ureteroscopy with history of obstruction/stone and discomfort. Patient is afebrile. White count was severely elevated. Patient was significantly hypotensive. Is still borderline with blood pressures but drastically improved since yesterday and the day prior. Has been undergoing resuscitation followed by supportive care/hydration therapy with oral medications, IV medications, IV fluids, and oral intake. Is doing better without considerable increase in pain or major issues. Has not developed severe vomiting or other issues. Blood pressure issues have finally improved. Had been dealing with significant episodes of hypotension especially yesterday even with IV antibiotic treatment. Currently in guarded position. Improving from critically ill. Has not experienced severe fever or chills. Has been tolerating oral medications. Is tolerating fluids. Has noticed some frequency and urgency. Has not had severe pain in the back and flank. Does have occasional burning and irritation. No severe episodes or major changes. Has not passed a large amount of blood or debris Review of Systems Review of Systems: All systems reviewed & are unremarkable except as noted in HPI & below Physical Exam Physical Exam: General: Alert in no acute distress. HEENT: Normocephalic Atraumatic. Inspection normal. Cranial Nerves 2-12 Grossly intact. Normal inspection of face. Normal inspection of neck. Psychologic: Normal affect. Respiratory: Nonlabored. No use of accessory muscles. No tachypnea or dyspnea. Cardiovascular: No tachycardia Skin: [place] and Dry. No rashes or visible lesions. Extremities/Lymphatics: No edema Abdomen: Soft Non-distended. No rebound or guarding. Results & Data Vital Signs (Past 12 Hours) Vital Signs Temp Pulse Pulse Resp BP BP Pulse Ox 10/01/24 07:03 83 19 93 10/01/24 07:00 115/59 L 10/01/24 07:00 36.6 C 78 18 115/59 L 92 10/01/24 06:39 83 14 92 10/01/24 06:06 85 19 99 10/01/24 06:01 110/70 10/01/24 06:01 110/70 10/01/24 05:54 85 16 99 10/01/24 05:15 84 29 H 98 10/01/24 05:01 132/66 10/01/24 05:00 82 18 98 10/01/24 04:48 173/71 H 10/01/24 04:48 173/71 H 10/01/24 04:48 85 29 H 92 10/01/24 04:06 75 14 98 10/01/24 04:00 112/62 10/01/24 04:00 112/62 10/01/24 03:51 75 21 99 10/01/24 03:06 72 21 99 10/01/24 03:00 109/60 10/01/24 02:54 73 30 H 99 10/01/24 02:00 100/56 L 10/01/24 02:00 76 17 98 10/01/24 01:15 76 16 93 10/01/24 01:01 104/56 L 10/01/24 00:57 77 17 89 L 10/01/24 00:15 84 18 98 10/01/24 00:01 100/64 10/01/24 00:01 100/64 10/01/24 00:00 87 17 99 09/30/24 23:03 82 15 99 09/30/24 23:01 130/63 09/30/24 23:01 130/63 09/30/24 23:01 130/63 09/30/24 22:48 85 22 99 O2 Del Method 10/01/24 07:03 10/01/24 07:00 10/01/24 07:00 Room Air, Nasal Cannula 10/01/24 06:39 10/01/24 06:06 10/01/24 06:01 10/01/24 06:01 10/01/24 05:54 10/01/24 05:15 10/01/24 05:01 10/01/24 05:00 10/01/24 04:48 10/01/24 04:48 10/01/24 04:48 10/01/24 04:06 10/01/24 04:00 10/01/24 04:00 10/01/24 03:51 10/01/24 03:06 10/01/24 03:00 10/01/24 02:54 10/01/24 02:00 10/01/24 02:00 10/01/24 01:15 10/01/24 01:01 10/01/24 00:57 10/01/24 00:15 10/01/24 00:01 10/01/24 00:01 10/01/24 00:00 09/30/24 23:03 09/30/24 23:01 09/30/24 23:01 09/30/24 23:01 09/30/24 22:48 PG Care Time/CCT Total # of Minutes Spent Total Time Spent with Patient: Total time spent is greater than 50% in coordination of care (as documented) at patient's floor/unit and/or counseling patient: Coding Level of Care Code 31913 SUB INP/OBS CARE 3/50MIN Diagnoses Nephrolithiasis N20.0 Severe sepsis A41.9; R65.20 Ureteral stone N20.1 Elevated procalcitonin R79.89 Acute hypoxemic respiratory failure J96.01 RAJESH (acute kidney injury) N17.9 Septic shock A41.9; R65.21
--- NOTE | 2024-10-01 12:50 | Hospitalist Progress Note ---
Date of Service October 01, 2024 Assessment & Plan (1) Septic shock: (2) S/P cystoscopy: Plan 84 yo female with pmhx of recent urologic procedure (on 09/29/2024), CKD stage 3a, osteoporosis, hx of herpes zoster, HLD who presents (on 09/29) for fatigue, weakness and fevers at home post discharge. She had procedure for laser lithotripsy w/ dilatation of L ureteral stricture and stent exchange on 09/29/2024, discharged home post procedure. Procedure was attempted in August 2024 but lithotripsy was aborted at that time due to mucosal splitting. She is being managed for the following: Urinary tract infection, complicated, related to recent instrumentation of urinary tract Septic shock: likely 2/2 above Nephrolithiasis s/p lithotripsy: see above Ureteral stricture s/p dilation and stent replacement RO bacteremia shock as evidenced by lactic acidosis, needing levophed and vasopressin at presentation, pt was admitted to ICU. s/p 3L IVF in ED. Admitting imagings: CXR w/ mild pulm vasc congestion. CTAP: Lt ureteral stent in position, b/l nonobstructive renal stones noted. CT Chest: neg for infectious process. UTI likely 2/2 instrumentation from urologic procedure, imaging unrevealing of other sources at this time. 09/29 Zosyn --> 10/01 Augmentin, plan for 14 day. Follow cultures - no growth so far. Off of pressors since 5 am, d/w ICU, plan for dc ivf and able to downgrade to pcu. Uro on board, appreciate recs. Pt feels better, is afebrile, maintaining BP, WBC still high but very gradually improving, LA trending down, will follow. RAJESH (acute kidney injury): in setting of severe sepsis/septic shock s/p urologic instrumentation OP chart review, baseline Cr about 1.0 s/p IVF, about 6 L positive, Cr uptrending, now 2.01 Encourage po intake, ivf dc'd, avoid nephrotoxins. Pt w/ improving urine OP, expect to improve renal fxn by jes, if not consider nephro consult. Hypoxia: Does not use oxygen at home, needed up to 2 L oxygen at presentation likely in the setting of acute illness [see above]. No respiratory failure POA. Continue to monitor, wean down oxygen as tolerated, encourage incentive spirometry. CT chest as above. Elevated D dimer likely iso septic shock and renal failure, pt's resp status has been improving and HR has been stable, hence likely no concern of PE/DVT (pt doesn't have calf swelling/tenderness/erythema). Will continue to monitor. HTN: currently home BP meds on hold. Patient DNRDNI but ok with pressors DVT Px: SCDs, has thrombocytopenia. Admission and Anticipated Discharge Date Admission Date: September 29, 2024 Subjective Patient was seen and examined at bedside. Patient was lying in bed, on RA, NAD, resting comfortably. Patient denies any sore throat/cough/chest pain/belly pain/pain or burning with passing urine. Per RN, concentrated urine yesterday, now clearing up lately w/ light yellow urine pt has poorer appetite but has been drinking adequate per RN. Had small BM in AM. Patient reports feeling better. No new acute event overnight per patient. Physical Exam Physical Exam: GENERAL: Alert and oriented x3. NAD, on RA. appears tired. HEENT: No pallor, no icterus. Pupils equal, round and reactive to light. Oral mucosa moist. NECK: No JVD, no neck masses. HEART: S1 and S2 heard. Regular rate and rhythm. No murmur, no gallop. RESPIRATORY SYSTEM: Normal AP diameter. No accessory muscle use. No wheezing, bb crackles. ABDOMEN: Soft, bowel sounds present, nontender, no distention. CENTRAL NERVOUS SYSTEM: No facial droop. Speech is clear. Obeys simple commands. Moves extremities. EXTREMITIES: trace ble edema, no erythema seen. Results & Data Results & Data Vital Signs (Past 12 Hours) Vital Signs Temp Pulse Pulse Resp BP BP Pulse Ox 10/01/24 07:03 83 19 93 10/01/24 07:00 115/59 L 10/01/24 07:00 36.6 C 78 18 115/59 L 92 10/01/24 06:39 83 14 92 10/01/24 06:06 85 19 99 10/01/24 06:01 110/70 10/01/24 06:01 110/70 10/01/24 05:54 85 16 99 10/01/24 05:15 84 29 H 98 10/01/24 05:01 132/66 10/01/24 05:00 82 18 98 10/01/24 04:48 173/71 H 10/01/24 04:48 173/71 H 10/01/24 04:48 85 29 H 92 10/01/24 04:06 75 14 98 10/01/24 04:00 112/62 10/01/24 04:00 112/62 10/01/24 03:51 75 21 99 10/01/24 03:06 72 21 99 10/01/24 03:00 109/60 10/01/24 02:54 73 30 H 99 10/01/24 02:00 100/56 L 10/01/24 02:00 76 17 98 10/01/24 01:15 76 16 93 10/01/24 01:01 104/56 L 10/01/24 00:57 77 17 89 L O2 Del Method 10/01/24 07:03 10/01/24 07:00 10/01/24 07:00 Room Air, Nasal Cannula 10/01/24 06:39 10/01/24 06:06 10/01/24 06:01 10/01/24 06:01 10/01/24 05:54 10/01/24 05:15 10/01/24 05:01 10/01/24 05:00 10/01/24 04:48 10/01/24 04:48 10/01/24 04:48 10/01/24 04:06 10/01/24 04:00 10/01/24 04:00 10/01/24 03:51 10/01/24 03:06 10/01/24 03:00 10/01/24 02:54 10/01/24 02:00 10/01/24 02:00 10/01/24 01:15 10/01/24 01:01 10/01/24 00:57
[2024-10-01] MEDS: THIAMINE HCL 100 MG TAB PO SCH (13:52)
[2024-10-01] MEDS: AMOXICILLIN/CLAVULANATE 500 MG TAB PO SCH (17:20)
[2024-10-01] MEDS: ONDANSETRON INJ 2 MG/ML 2 ML VIAL IV ONE (18:33)
[2024-10-01] MEDS: HEPARIN SOD 5,000 UNIT/0.5 ML VIAL SQ SCH (20:50)
[2024-10-02 05:15] LABS: Hematocrit (blood only) 35.1 % (37.0-47.0); Hemoglobin 11.8 g/dl (12.0-16.0); Mean Corpuscular Hemoglobin 31.2 pg (25.0-34.0); Mean Corpuscular Hgb Conc 33.6 g/dL (32.0-36.0); Mean Corpuscular Volume 92.9 fL (80.0-100.0); Mean Platelet Volume 12.9 fL (9.4-12.4); Platelet Count 55 K/uL (130-400); RDW Standard Deviation 48.1 fL (36.4-46.3); Red Blood Count 3.78 M/uL (4.20-5.40); White Blood Count 26.74 K/ul (4.8-10.8)
[2024-10-02 05:32] LABS: BUN Creatinine Ratio 18.3 (10-20); Calcium 8.3 mg/dl (8.6-10.3); Creatinine Clr Calc Pharmacy 19.1 ml/min; Magnesium 2.4 mg/dl (1.7-2.4); Phosphorus 4.5 mg/dl (2.5-4.9)
[2024-10-02 05:58] LABS: Dohle Bodies 2+; Eosinophils # (manual) 0.27 K/uL (0-0.50); Eosinophils % (manual) 1 %; Metamyelocytes # (manual) 0.27 K/uL (0-0); Metamyelocytes % (manual) 1 %; Monocytes % (manual) 3 %; Neutrophils % (manual) 95 %; Polychromasia 1+; Toxic Granulation 1+
--- NOTE | 2024-10-02 10:37 | Urology Progress Note ---
Date of Service October 02, 2024 Assessment & Plan (1) S/P cystoscopy: (2) Severe sepsis: Plan: Follow-up of severe sepsis status post ureteroscopy 09/29 No longer requiring pressors as of 10/01 Patient afebrile with stable vitals Labs reviewedcontinues with significant leukocytosis of 26.74, creatinine 1.97 Preop urine culture 09/26 showed no growth Blood cultures 09/29 with no growth to date Left ureteral stent in good position on imaging Patient subjectively feeling better Continue to trend labs Continue antibiotics for presumed pyelonephritis Continue supportive care and medical management per hospital medicine Will arrange outpatient follow-up with our service will sign off, please contact our service with any additional questions or concerns Admission and Anticipated Discharge Date Admission Date: September 29, 2024 Subjective Patient seen and examined at bedside this morning. She is awake and sitting up in bed. No acute issues overnight. Denies fever or chills. Voiding spontaneously. Denies discomfort. Reports some mild nausea this am after having milk, no vomiting. Review of Systems Constitutional: as per Subjective / HPI Genitourinary: as per Subjective / HPI Physical Exam Constitutional: well developed and well nourished; no acute distress Respiratory: normal respiratory effort; no respiratory distress and no labored breathing Gastrointestinal (Abdomen): Inspection/Auscultation: abdomen normal to inspection Musculoskeletal: Head/Neck/Chest: normocephalic Neurologic: moves all extremities and awake Psychiatric: Orientation: alert and oriented x 3 Results & Data Vital Signs (Past 12 Hours) Vital Signs Temp Pulse Pulse Pulse Resp BP BP 10/02/24 08:17 36.4 C L 88 18 115/71 10/02/24 08:00 84 10/02/24 05:20 36.5 C 84 16 137/78 10/02/24 03:46 36.4 C L 10/02/24 02:09 84 16 10/02/24 02:00 134/70 10/02/24 02:00 134/70 10/02/24 01:48 83 13 10/02/24 00:03 80 19 10/02/24 00:00 112/63 10/02/24 00:00 112/63 10/01/24 23:57 79 25 H 10/01/24 23:54 79 18 10/01/24 23:46 110/64 10/01/24 23:46 110/64 10/01/24 23:46 110/64 10/01/24 23:46 80 10/01/24 23:44 37.0 C 10/01/24 23:33 81 13 Pulse Ox O2 Del Method 10/02/24 08:17 90 Room Air 10/02/24 08:00 10/02/24 05:20 91 Room Air 10/02/24 03:46 10/02/24 02:09 97 10/02/24 02:00 10/02/24 02:00 10/02/24 01:48 97 10/02/24 00:03 98 10/02/24 00:00 10/02/24 00:00 10/01/24 23:57 98 10/01/24 23:54 98 10/01/24 23:46 10/01/24 23:46 10/01/24 23:46 10/01/24 23:46 10/01/24 23:44 10/01/24 23:33 97 PG Care Time/CCT Total # of Minutes Spent Total Time Spent with Patient: Total time spent is greater than 50% in coordination of care (as documented) at patient's floor/unit and/or counseling patient: Coding Level of Care Code 22726 SUB INP/OBS CARE 2/35MIN Diagnoses S/P cystoscopy Z98.890 Severe sepsis A41.9; R65.20
--- NOTE | 2024-10-02 12:24 | Nephrology Consultation ---
Date of Consultation October 02, 2024 Assessment & Plan (1) RAJESH (acute kidney injury): Stage 2 nonoliguric RAJESH on mild CKD3A presenting creatinine was 1.2 on 09/29; peaked on 10/01 at 2.0, today at 2.0 again; PMH non albuminuric CKD3A baseline creatinine 1.0-1.1. 6L + on admission, so doubt prerenal >contrast induced nephropathy (obligate contrast on admission to check stent position) may have a role; versus ischemic ATN -acceptable voluem status and electrolytes -daily bmp -continue nephrotoxin avoidance >> cont to hold losartan (2) Severe sepsis: fever, marked leukocytosis, transient pressor dependence now weaned off -f/u pending blood, urine cxs (NGTD) (3) Nephrolithiasis: no e/o obstrution; s/p laser lithotripsy -f/u urology recs -metabolic w/u as OP History of Present Illness Reason for Consultation: RAJESH not improving Requesting Physician: Dr Hubbard Attending Physician: Ino Hubbard MD History of Present Illness 84 y/o F whom I'm asked to see for RAJESH not improving was admitted here 09/29 w/ septic shock a few hours after urologic implementation. PMH includes non albuminuric CKD3A baseline creatinine 1.0-1.1, nephrolithiasis, HTN, impaired glucose tolerance. On 09/29, she underwent L stent exchange and laser therapy for stone as well as dilatation of L ureteral stricture. She presented to ED about 2 hrs after d/c w/ rigors, temp 101, emesis x 6, lethargy. She had 1.5L NS in ED, started on zosyn, given a gram of mag. ultimately required another 1.5L NS but then transitioned to levophed. blood and urine cxs negative/NGTD. did have HAGMA attributed to infection. Her presenting creatinine was 1.2 on 09/29; peaked on 10/01 at 2.0, today at 2.0 again. IVF stopped yesterday. Seen on midday rounds; at bedside. pt states she came up from ICU to hospital floor approx 6 AM; feels much better today. no N/v/d/abd pain, no sob; still weak; some R groin pain at times. no further rigors. denies voiding c/o. + edema R hand and BL feelt. Allergies Allergy/AdvReac Type Severity Reaction Status Date / Time No Known Allergies Allergy Verified 09/29/24 18:27 Home Medications Medication Instructions Recorded Confirmed Type multivitamin 1 tab PO QAM 10/26/23 09/29/24 History cephalexin 500 mg capsule 500 mg PO BID #20 caps 09/20/24 09/29/24 Rx losartan 50 mg tablet 75 mg PO QAM 09/29/24 09/29/24 History Patient History Medical History Kidney infection current abx tx/started abx 09/20/24 - pt reports some improvement with symptoms. urine upcoming 09/26/24. 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 Hx of decompression of ulnar nerve right side History of open reduction and internal fixation (ORIF) procedure left wrist - 2 plates Hx of colonoscopy with polypectomy S/P cystoscopy with ureteral stent placement (11/2023) x2 Hx of appendectomy (1969) History of parathyroid surgery (2009) removal Hx of cataract surgery (2018) b/l Social History Smoking Status: Never smoker Second Hand Exposure: No; Do You Dip or Chew Tobacco: No; Hx Alcohol Use: No Hx Substance Use: No Preferred Language: Croatian Communication Ability: Effective Principal Solutions Architect Required: No Beliefs That Will Affect Care: None Current Living Situation: Spouse Feels Safe at Home: Yes Safety Concerns: Feels Safe At This Time Assistive Devices: None Review of Systems 2 Review of Systems: All systems reviewed & are unremarkable except as noted in HPI & below Physical Exam 2 Constitutional: well developed and well nourished Eyes: EOM intact bilaterally ENMT: Mouth: + dry oral mucous membranes Respiratory: normal respiratory effort Auscultation: + diminished lung sounds Cardiovascular: Rate/Rhythm: regular rate and regular rhythm Extremities: n o edema Gastrointestinal (Abdomen): Inspection/Auscultation: normal bowel sounds P ercussion/Palpation: abdomen soft; abdomen nontender Musculoskeletal: Extremities: strength 5/5 throughout Skin: no rashes, warm and dry Neurologic: morris, fluent speech, no tremor Results & Data Vital Signs (Past 12 Hours) Vital Signs Temp Pulse Pulse Pulse Resp BP BP 10/02/24 12:09 36.9 C 90 20 132/67 10/02/24 08:17 36.4 C L 88 18 115/71 10/02/24 08:00 84 10/02/24 05:20 36.5 C 84 16 137/78 10/02/24 03:46 36.4 C L 10/02/24 02:09 84 16 10/02/24 02:00 134/70 10/02/24 02:00 134/70 10/02/24 01:48 83 13 Pulse Ox O2 Del Method 10/02/24 12:09 92 Room Air 10/02/24 08:17 90 Room Air 10/02/24 08:00 10/02/24 05:20 91 Room Air 10/02/24 03:46 10/02/24 02:09 97 10/02/24 02:00 10/02/24 02:00 10/02/24 01:48 97 Laboratory Results 10/02/24 04:29 10/02/24 04:29 admission ua 5/16 > 2+ blood, 3+ protein, WBC, no bacteria Diagnostic Findings CT a/p w/ con admission (no renal mass; unremarkabl adrenals) Left nephroureteral stent in position. No hydronephrosis or hydroureter. Duplicated right renal collecting system. Nonobstructive stones are seen in the bilateral kidneys, are similar to prior. chest CT non con > unremarkable
--- NOTE | 2024-10-02 15:11 | Hospitalist Progress Note ---
Date of Service October 02, 2024 Assessment & Plan (1) Septic shock: (2) S/P cystoscopy: Plan 84 yo female with pmhx of recent urologic procedure (on 09/29/2024), CKD stage 3a, osteoporosis, hx of herpes zoster, HLD who presents (on 09/29) for fatigue, weakness and fevers at home post discharge. She had procedure for laser lithotripsy w/ dilatation of L ureteral stricture and stent exchange on 09/29/2024, discharged home post procedure. Procedure was attempted in August 2024 but lithotripsy was aborted at that time due to mucosal splitting. She is being managed for the following: Urinary tract infection, complicated, related to recent instrumentation of urinary tract Septic shock: likely 2/2 above Nephrolithiasis s/p lithotripsy: see above Ureteral stricture s/p dilation and stent replacement RO bacteremia shock as evidenced by lactic acidosis, needing levophed and vasopressin at presentation, pt was admitted to ICU. s/p 3L IVF in ED. Off of pressors since 10/01 AM. Admitting imagings: CXR w/ mild pulm vasc congestion. CTAP: Lt ureteral stent in position, b/l nonobstructive renal stones noted. CT Chest: neg for infectious process. UTI likely 2/2 instrumentation from urologic procedure, imaging unrevealing of other sources at this time. 09/29 Zosyn --> 10/01 Augmentin, plan for 14 day. Follow cultures - no growth so far. Pt afebrile, feels better, clinically improving, WBC still high, will continue to monitor. Uro on board, appreciate recs. RAJESH (acute kidney injury): in setting of severe sepsis/septic shock s/p urologic instrumentation OP chart review, baseline Cr about 1.0 s/p IVF, about 6 L positive, Cr uptrending, now around 2 Encourage po intake, ivf dc'd 10/01, avoid nephrotoxins. Pt w/ improving urine OP, Cr not improving as expected, nephro consult. Hypoxia: Does not use oxygen at home, needed up to 2 L oxygen at presentation likely in the setting of acute illness [see above]. No respiratory failure POA. Continue to monitor, wean down oxygen as tolerated, encourage incentive spirometry. CT chest as above. Elevated D dimer likely iso septic shock and renal failure, pt's resp status has been improving and HR has been stable, hence likely no concern of PE/DVT (pt doesn't have calf swelling/tenderness/erythema). Will continue to monitor. HTN: currently home BP meds on hold. Patient DNRDNI but ok with pressors DVT Px: SCDs, has thrombocytopenia. Admission and Anticipated Discharge Date Admission Date: September 29, 2024 Subjective Patient was seen and examined at bedside. Patient was lying in bed, on RA, NAD, resting comfortably. Patient denies any sore throat/cough/chest pain/belly pain/pain or burning with passing urine. Pt reports passing urine ok, no issues, it has been clear in color. Pt w/ UE and facial swelling today, renal fxn appears to have plateaued, will consult nephro. pt has poorer appetite but has been drinking adequate per RN. Had BM yesterday. Patient reports feeling better. No new acute event overnight per patient. Physical Exam Physical Exam: GENERAL: Alert and oriented x3. NAD, on RA. HEENT: No pallor, no icterus. Pupils equal, round and reactive to light. Oral mucosa moist. NECK: No JVD, no neck masses. HEART: S1 and S2 heard. Regular rate and rhythm. No murmur, no gallop. RESPIRATORY SYSTEM: Normal AP diameter. No accessory muscle use. No wheezing, bb crackles. ABDOMEN: Soft, bowel sounds present, nontender, no distention. CENTRAL NERVOUS SYSTEM: No facial droop. Speech is clear. Obeys simple commands. Moves extremities. EXTREMITIES: trace ble edema, no erythema seen. UE and facial edema noted. Results & Data Results & Data Vital Signs (Past 12 Hours) Vital Signs Temp Pulse Pulse Pulse Resp BP Pulse Ox 10/02/24 14:31 92 H 10/02/24 12:09 36.9 C 90 20 132/67 92 10/02/24 08:17 36.4 C L 88 18 115/71 90 10/02/24 08:00 84 10/02/24 05:20 36.5 C 84 16 137/78 91 10/02/24 03:46 36.4 C L O2 Del Method 10/02/24 14:31 10/02/24 12:09 Room Air 10/02/24 08:17 Room Air 10/02/24 08:00 10/02/24 05:20 Room Air 10/02/24 03:46
[2024-10-02] MEDS: amLODIPine BESYLATE 5 MG TAB PO SCH (21:21)
[2024-10-03 05:14] LABS: Hemoglobin 10.5 g/dl (12.0-16.0); Mean Corpuscular Hemoglobin 31.3 pg (25.0-34.0); Mean Corpuscular Hgb Conc 33.9 g/dL (32.0-36.0); Mean Corpuscular Volume 92.3 fL (80.0-100.0); Mean Platelet Volume 12.8 fL (9.4-12.4); Platelet Count 63 K/uL (130-400); RDW Coefficient of Variation 13.8 % (11.5-14.5); RDW Standard Deviation 47.1 fL (36.4-46.3); Red Blood Count 3.36 M/uL (4.20-5.40); White Blood Count 22.02 K/ul (4.8-10.8)
[2024-10-03 05:36] LABS: Calcium 8.4 mg/dl (8.6-10.3); Magnesium 2.2 mg/dl (1.7-2.4); Potassium 3.7 mmol/L (3.5-5.1)
[2024-10-03 05:42] LABS: BUN Creatinine Ratio 18.4 (10-20); Creatinine Clr Calc Pharmacy 20.5 ml/min; Phosphorus 2.8 mg/dl (2.5-4.9)
--- NOTE | 2024-10-03 08:41 | Communication Note ---
Date of Service: October 02, 2024 Made aware by RN of uncontrolled blood pressure last night. SBP 150-160s since yesterday afternoon. Patient asking about home losartan Rx. Patient asymptomatic as per RN. AP Uncontrolled hypertension BP meds hold on admission due to hypotension. Kidney dysfunction Amlodipine while losartan on hold Will relay to AM provider.
--- NOTE | 2024-10-03 12:33 | Nephrology Progress Note ---
Date of Service October 03, 2024 Assessment & Plan (1) RAJESH (acute kidney injury): Plan: Stage 2 nonoliguric RAJESH on mild CKD3A presenting creatinine was 1.2 on 09/29; peaked on 10/01 at 2.0, today down slightly to 1.9; PMH non albuminuric CKD3A baseline creatinine 1.0-1.1. 6L + on admission by the time she came out of the ICU. No longer tracking output which is reasonable. Doubt prerenal. >contrast induced nephropathy (obligate contrast on admission to check stent position) may have a role; versus ischemic ATN -acceptable volume status and electrolytes -daily bmp -continue nephrotoxin avoidance >> cont to hold losartan; agree with amlodipine; could also use as needed hydralazine Encouraged incentive spirometry Care coordinated w/ Dr Stevie Bustillo re BP control, renal status, d/c dispo; we are in agreement. (2) Severe sepsis: Plan: fever, marked leukocytosis, transient pressor dependence now weaned off. White cell count remains greater than 20,000 at 22. -f/u pending blood, urine cxs (NGTD) (3) Nephrolithiasis: Plan: no e/o obstrution; s/p laser lithotripsy -f/u urology recs -metabolic w/u as OP Fluid intake targets reviewed Admission and Anticipated Discharge Date Admission Date: September 29, 2024 Subjective Ongoing poor appetite which is close to her baseline. Denies shortness of breath cough wheeze or orthopnea. Refusing to take statin. Drinking about 64 ounces of water daily in house. Review of Systems 2 Review of Systems: All systems reviewed & are unremarkable except as noted in Subjective Physical Exam 2 Constitutional: well developed and well nourished Eyes: EOM intact bilaterally ENMT: Mouth: + dry oral mucous membranes Respiratory: normal respiratory effort Auscultation: + diminished lung sounds and + crackles (Pronounced bibasilar) Cardiovascular: Rate/Rhythm: regular rate and regular rhythm Extremities: n o edema Gastrointestinal (Abdomen): Inspection/Auscultation: normal bowel sounds P ercussion/Palpation: abdomen soft; abdomen nontender Musculoskeletal: Extremities: strength 5/5 throughout Skin: no rashes, warm and dry Results & Data Vital Signs (Past 12 Hours) Vital Signs Temp Pulse Pulse Resp BP BP Pulse Ox 10/03/24 11:18 37.1 C 87 16 168/81 H 95 10/03/24 08:00 88 10/03/24 07:57 36.8 C 85 18 143/83 H 96 10/03/24 04:25 36.9 C 100 H 17 153/73 H 92 O2 Del Method 10/03/24 11:18 Room Air 10/03/24 08:00 10/03/24 07:57 Room Air 10/03/24 04:25 Room Air Laboratory Results 10/03/24 04:42 10/03/24 04:42
--- NOTE | 2024-10-03 14:56 | Hospitalist Progress Note ---
Date of Service October 03, 2024 Assessment & Plan (1) Septic shock: (2) S/P cystoscopy: Plan 84 yo female with pmhx of recent urologic procedure (on 09/29/2024), CKD stage 3a, osteoporosis, hx of herpes zoster, HLD who presents (on 09/29) for fatigue, weakness and fevers at home post discharge. She had procedure for laser lithotripsy w/ dilatation of L ureteral stricture and stent exchange on 09/29/2024, discharged home post procedure. Procedure was attempted in August 2024 but lithotripsy was aborted at that time due to mucosal splitting. She is being managed for the following: Urinary tract infection, complicated, related to recent instrumentation of urinary tract Septic shock: likely 2/2 above Nephrolithiasis s/p lithotripsy: see above Ureteral stricture s/p dilation and stent replacement RO bacteremia shock as evidenced by lactic acidosis, needing levophed and vasopressin at presentation, pt was admitted to ICU. s/p 3L IVF in ED. Off of pressors since 10/01 AM. Admitting imagings: CXR w/ mild pulm vasc congestion. CTAP: Lt ureteral stent in position, b/l nonobstructive renal stones noted. CT Chest: neg for infectious process. UTI likely 2/2 instrumentation from urologic procedure, imaging unrevealing of other sources at this time. 09/29 Zosyn --> 10/01 Augmentin, plan for 14 day. Follow cultures - no growth so far. Pt afebrile, feels better, clinically improving, WBC still high though downtrending, will continue to monitor. Uro on board, appreciate recs. RAJESH (acute kidney injury): in setting of severe sepsis/septic shock s/p urologic instrumentation OP chart review, baseline Cr about 1.0 s/p IVF, about 6 L positive, Cr uptrended, peak around 2 Encourage po intake, ivf dc'd 10/01, avoid nephrotoxins. Pt w/ improving urine OP, Cr not improving as expected, nephro on board. Hypoxia: Does not use oxygen at home, needed up to 2 L oxygen at presentation likely in the setting of acute illness [see above]. Now resolved. HTN: currently home BP meds on hold. amlod dose increased, prn labetatol in. Patient DNRDNI but ok with pressors DVT Px: Heparin sc Admission and Anticipated Discharge Date Admission Date: September 29, 2024 Subjective Patient was seen and examined at bedside. Patient was lying in bed, on RA, NAD, resting comfortably. Patient denies any sore throat/cough/chest pain/belly pain/pain or burning with passing urine. Pt reports passing urine ok, no issues, it has been clear in color. Pt's UE and facial swelling/puffiness improving today, ble still appears puffy. No erythema/calf tenderness. pt has poorer appetite but states it has improved to her baseline po intake which still is poor. Hs been drinking adequate, moving bowels ok. Patient reports feeling better. No new acute event overnight per patient. Physical Exam Physical Exam: GENERAL: Alert and oriented x3. NAD, on RA. HEENT: No pallor, no icterus. Pupils equal, round and reactive to light. Oral mucosa moist. NECK: No JVD, no neck masses. HEART: S1 and S2 heard. Regular rate and rhythm. No murmur, no gallop. RESPIRATORY SYSTEM: Normal AP diameter. No accessory muscle use. No wheezing, bb crackles. ABDOMEN: Soft, bowel sounds present, nontender, no distention. CENTRAL NERVOUS SYSTEM: No facial droop. Speech is clear. Obeys simple commands. Moves extremities. EXTREMITIES: trace ble edema, no erythema seen. UE and facial edema improving. Results & Data Results & Data Vital Signs (Past 12 Hours) Vital Signs Temp Pulse Pulse Resp BP BP Pulse Ox 10/03/24 11:18 37.1 C 87 16 168/81 H 95 10/03/24 08:00 88 10/03/24 07:57 36.8 C 85 18 143/83 H 96 10/03/24 04:25 36.9 C 100 H 17 153/73 H 92 O2 Del Method 10/03/24 11:18 Room Air 10/03/24 08:00 10/03/24 07:57 Room Air 10/03/24 04:25 Room Air
[2024-10-03] MEDS: amLODIPine BESYLATE 5 MG TAB PO ONE (15:35)
[2024-10-03] MEDS: LABETALOL HCL IV 5 MG/ML 20ML IV PRN (20:11)
[2024-10-04 06:01] LABS: Hemoglobin 10.5 g/dl (12.0-16.0); Mean Corpuscular Hemoglobin 30.8 pg (25.0-34.0); Mean Corpuscular Hgb Conc 33.9 g/dL (32.0-36.0); Mean Corpuscular Volume 90.9 fL (80.0-100.0); Mean Platelet Volume 12.1 fL (9.4-12.4); Platelet Count 76 K/uL (130-400); RDW Coefficient of Variation 13.5 % (11.5-14.5); RDW Standard Deviation 45.6 fL (36.4-46.3); Red Blood Count 3.41 M/uL (4.20-5.40); White Blood Count 10.94 K/ul (4.8-10.8)
[2024-10-04 06:27] LABS: BUN Creatinine Ratio 18.4 (10-20); Calcium 8.7 mg/dl (8.6-10.3); Creatinine Clr Calc Pharmacy 22.2 ml/min; Phosphorus 3.6 mg/dl (2.5-4.9); Potassium 3.4 mmol/L (3.5-5.1)
[2024-10-04 07:51] VITALS: TEMP 97.9
[2024-10-04] MEDS: amLODIPine BESYLATE 5 MG TAB PO SCH (08:36)
--- NOTE | 2024-10-04 09:10 | Nephrology Progress Note ---
Date of Service October 04, 2024 Assessment & Plan (1) RAJESH (acute kidney injury): Plan: improving Stage 2 nonoliguric RAJESH on mild CKD3A presenting creatinine was 1.2 on 09/29; peaked on 10/01 at 2.0, today down to 1.7; PMH non albuminuric CKD3A baseline creatinine 1.0-1.1. 6L + on admission by the time she came out of the ICU. No longer tracking output which is reasonable. Doubt prerenal. >multifactorial ischemic ATN from contrast induced nephropathy (obligate contrast on admission to check stent position) plus sepsis -acceptable volume status and electrolytes apart from mild low K 3.4 >>agree w/ already given K 40 mEq x 1 po -daily bmp -continue nephrotoxin avoidance >> cont to hold losartan; agree with amlodipine (started 10/03) >>>>>>>started hydralazine 10 mg tid, hold for sbp <120 Encouraged incentive spirometry Care coordinated w/ Dr Se Bustillo re BP control, renal status, d/c dispo; we are in agreement. (2) Severe sepsis: Plan: on admission; resolved now. p/w fever, marked leukocytosis, transient pressor dependence now weaned off. White cell count improved to 11K today from 20K yesterday. -f/u pending blood, urine cxs (NGTD) (3) Nephrolithiasis: Plan: no e/o obstrution; s/p laser lithotripsy -f/u urology recs -metabolic w/u as OP Fluid intake targets reviewed Admission and Anticipated Discharge Date Admission Date: September 29, 2024 Subjective seen on early afternoon rounds. continues to feel improved. no chest pain, no sob, no palpitations. edema minimally changed. using ISS Review of Systems 2 Review of Systems: All systems reviewed & are unremarkable except as noted in Subjective Physical Exam 2 Constitutional: well developed (sitting up in chair on RA) and well nourished Eyes: EOM intact bilaterally ENMT: Mouth: + dry oral mucous membranes Respiratory: normal respiratory effort Auscultation: + diminished lung sounds and + crackles (Pronounced bibasilar) Cardiovascular: Rate/Rhythm: regular rate and regular rhythm Extremities: n o edema Gastrointestinal (Abdomen): Inspection/Auscultation: normal bowel sounds P ercussion/Palpation: abdomen soft; abdomen nontender Musculoskeletal: Extremities: strength 5/5 throughout Skin: no rashes, warm and dry Results & Data Vital Signs (Past 12 Hours) Vital Signs Temp Pulse Pulse Resp BP Pulse Ox O2 Del Method 10/04/24 07:00 36.6 C 94 H 16 159/62 H 93 Room Air 10/04/24 02:31 37 C 82 148/65 H 93 Room Air 10/03/24 22:50 36.7 C 87 16 143/70 H 92 Room Air 10/03/24 22:00 78 Laboratory Results 10/04/24 05:24 10/04/24 05:24
[2024-10-04] MEDS: POTASSIUM CHLORIDE CRTAB 20 MEQ TABCR PO STA (10:11)
[2024-10-04] MEDS: hydrALAZINE 10 MG TAB PO SCH (11:18)
[2024-10-04 11:19] VITALS: RESP 18; O2SAT 94
[2024-10-04 13:04] VITALS: BP 153/73; PULSE 90
--- NOTE | 2024-10-04 17:08 | Discharge Summary ---
Discharge Summary Date of Service October 04, 2024 Principal Dx & Hospital Course #1 = Principal Diagnosis (1) Septic shock: (2) S/P cystoscopy: Plan 84 yo female with pmhx of recent urologic procedure (on 09/29/2024), CKD stage 3a, osteoporosis, hx of herpes zoster, HLD who presents (on 09/29) for fatigue, weakness and fevers at home post discharge. She had procedure for laser lithotripsy w/ dilatation of L ureteral stricture and stent exchange on 09/29/2024, discharged home post procedure. Procedure was attempted in August 2024 but lithotripsy was aborted at that time due to mucosal splitting. She is being managed for the following: Urinary tract infection, complicated, related to recent instrumentation of urinary tract Septic shock: likely 2/2 above Nephrolithiasis s/p lithotripsy: see above Ureteral stricture s/p dilation and stent replacement RO bacteremia shock as evidenced by lactic acidosis, needing levophed and vasopressin at presentation, pt was admitted to ICU. s/p 3L IVF in ED. Off of pressors since 10/01 AM. Admitting imagings: CXR w/ mild pulm vasc congestion. CTAP: Lt ureteral stent in position, b/l nonobstructive renal stones noted. CT Chest: neg for infectious process. UTI likely 2/2 instrumentation from urologic procedure, imaging unrevealing of other sources at this time. 09/29 Zosyn --> 10/01 Augmentin, plan for 14 day. Follow cultures - no growth so far. Pt afebrile, feels better, clinically improving, WBC still high though downtrending, will continue to monitor. Uro on board, appreciate recs. RAJESH (acute kidney injury): in setting of severe sepsis/septic shock s/p urologic instrumentation OP chart review, baseline Cr about 1.0 s/p IVF, about 6 L positive, Cr uptrended, peak around 2 Encourage po intake, ivf dc'd 10/01, avoid nephrotoxins. Pt w/ improving urine OP, Cr not improving as expected, nephro on board. Hypoxia: Does not use oxygen at home, needed up to 2 L oxygen at presentation likely in the setting of acute illness [see above]. Now resolved. HTN: currently home BP meds on hold. amlod dose increased, prn labetatol in. Patient DNRDNI but ok with pressors DVT Px: Heparin sc Notes For Next Care Provider 84 yo female with pmhx of recent urologic procedure (on 09/29/2024), CKD stage 3a, osteoporosis, hx of herpes zoster, HLD who presents (on 09/29) for fatigue, weakness and fevers at home post discharge. She had procedure for laser lithotripsy w/ dilatation of L ureteral stricture and stent exchange on 09/29/2024, discharged home post procedure. On medicine, course complicated by septic shock in setting recent urologic instrumentation, required pressor support for several days. Improved significantly with abx. On 10/04/2024 patient medically stable for discharge home. To do: [ ] f/u with PCP and urology [ ] finish abx course Medication Changes From Visit -see below Admission HPI Per Admitting Provider 84 yo female with pmhx of recent urologic procedure (stent placement for stone, left stent, discharged today 09/29/2024), CKD stage 3a, osteoporosis, hx of herpes zoster, HLD who presents for fatigue, weakness and fevers at home post discharge. Had procedure for stent exchange, cystoscopy and laser lithotripsy on 09/29/2024, discharged home post procedure. Patient seen and examined at bedside. present. Patient not feeling well today at all. Went home post procedure, got profound fatigue, weakness, and fevers, chills as well, came to hospital. Did not feel well post procedure but went home anyways. states she looks ill. Does feel slightly SOB as well. No chest pain, nausea or vomiting at this time. Does have some lower abdominal pain as well. Discussed code status with patient, she would like to be DNRDNI at this time. Discharge Exam Gen: A&O 3 NAD HEENT: NCAT, EOMI, not icteric. External ears normal. No rhinorrhea. Moist mucous membranes. Neck: Supple, full range of motion, no observable masses, No meningeal sign. Lungs: No Respiratory distress. CV: tachycardic, regular rhythm Abdomen: no tenderness to palpation MSK: No joint swelling, no redness. Skin: No rashes, petechiae, lesions. Normal color per patient. Neuro: Normal Gait, Grossly intact. Psych: Appropriate for situation. 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 Please follow up with PCP and urology. 2. Take medications as prescribed. 3. Stay hydrated! Total Time Total Time Spent Total Time Spent (In Minutes): I spent a total of 35 minutes in direct patient care, including [id number] time with the patient and/or family, reviewing medical records, ordering and reviewing diagnostic tests, and coordinating care with other healthcare providers. This time includes: history taking, physical examination, medical decision making, counseling, ECG interpretation, imaging interpretation, lab interpretation, orders, and education, excluding time spent in the performance of separately billed services.
== END 2024-10-04 14:51 | disposition home or self-care (01) | DRG 862 ==
LOC: ED 15:21 → SUATTDRO 19:06 → 1E 19:06 → 4W 10-02 05:19